=== PATIENT | female | born 1945 | race Caucasian/White ===

== ENCOUNTER 2019-08-29 14:24 | Outpatient (CLI) | payer MEDICARE, SELFPAY ==
--- NOTE | ~2019-08-29 | US_ITS ---
EXAMINATION: US art doppler w shirley COWAN EXAM DATE: 08/29/2019 15:10 INDICATION: Hypertension. Atrial fibrillation. Other specified symptoms and signs of circulatory syst em. TECHNIQUE: Segmental pressures and plethysmographic and Doppler waveforms of the brachial and lower e xtremity arteries were obtained. There is no prior study for comparison. FINDINGS: Right and left brachial artery pressures of 128 mm Hg and 124 mm Hg, respectively, are concordant (no rmal difference <= 30 mmHg). The right and left thigh-brachial pressure indices are 1.35, 1.36, resp ectively (normal > 1.2). RIGHT LEG: The ankle-brachial index (AJ) is 1.02 (normal >= 0.9-1). The great toe-brachial index (TBI) is 0.63 (normal >= 0.65). The lower extremity ratios, segmental pressure gradients as follows; Proximal superficial femoral artery:- 1.35 (173 mmHg). Distal superficial femoral artery: ----- 1.33 (170 mmHg). Popliteal: 1.27 (163 mmHg). Dorsalis pedis: 1.02 (131 mmHg). Posterior tibial: 1.02 (131 mmHg). (Normal gradients <= 20-30 mmHg between adjacent levels on the same leg or the same levels on the two legs). Arterial waveforms are biphasic. LEFT LEG: The ankle-brachial index (AJ) is 1.07 (normal >= 0.9-1). The great toe-brachial index (TBI) is 0.78 (normal >= 0.65). The lower extremity ratios, segmental pressure gradients as follows; Proximal superficial femoral artery:- 1.36 (174 mmHg). Distal superficial femoral artery: ----- 1.24 (159 mmHg). Popliteal: 1.27 (163 mmHg). Dorsalis pedis: 1.05 (135 mmHg). Posterior tibial: 1.07 (137 mmHg). (Normal gradients <= 20-30 mmHg between adjacent levels on the same leg or the same levels on the two legs). Arterial waveforms are biphasic. IMPRESSION: 1. Right ankle-brachial index 1.02, normal. 2. Left ankle-brachial index 1.07, normal. 3. Segmental pressures as above. Reviewed, dictated and finalized at location A.
== END 2019-08-29 14:25 | disposition home or self-care (01) ==
LOC: ANHIMG 14:25
PROVIDERS: PCP Family Medicine; Visit Provider Family Medicine
DX: R09.89 Other specified symptoms and signs involving the circulatory and respiratory systems (principal); R23.0 Cyanosis
CPT/HCPCS: 93923

== ENCOUNTER 2020-02-18 12:34 | Outpatient (CLI) | payer MEDICARE, SELFPAY ==
--- NOTE | ~2020-02-18 | XR_ITS ---
MODIFIED ESOPHAGRAM HISTORY: Dysphagia. TECHNIQUE: Modified barium esophagram was performed by speech pathologist under radiologist fluorosco pic guidance. This was recorded on tape. The exam was reviewed on 02/18/2020 14:18 ICT [employer]. The DAP fo r this procedure was 3.6 Gycm2. Fluoroscopy time is 2.4 minutes. Single fluoroscopic image FINDINGS: Lateral projection of the cervical spine demonstrates straightening of cervical lordosis with multilevel ventral osteophytes.. There is normal swallowing function without evidence for penetr ation or aspiration. There is mildly delayed passage of barium tablet in the esophagus. Consider vic elation with esophagram.. IMPRESSION: 1: Normal swallowing function without aspiration or penetration. Passage of barium tablet mildly jean yed in the esophagus. 2: Please refer to speech pathologist report for additional detail. Reviewed, dictated and finalized at location A. [employer] IMPRESSION: 1: Normal swallowing function without aspiration or penetration. Passage of bar ium tablet mildly delayed in the esophagus. 2: Please refer to speech pathologist report for additional detail.
--- NOTE | 2020-02-18 15:26 | STOPEVAL ---
MODIFIED BARIUM SWALLOW EVALUATION: Thank you for referring this pt to [facility]. Attending Provider: Celestine Santiago MD *ST Outpatient Evaluation MBS: Start: 02/18/20 15:15 Freq: Status: Active Protocol: Document 02/18/20 13:00 BECHERERT (Rec: 02/18/20 15:26 BECHERERT [email or web address]) Therapy Assessment Status Assessment Status Assessment Status Evaluation Outpatient Past Medical History Respiratory History Hx Pneumonia Yes: 4 1/2 years ago hospitalized 16 days Gastrointestinal History Hx Gastroesophageal Reflux Disease Yes: takes pantoprazole 40mg Other History Hx Cancer Yes: skin basal Pain Assessment Timing of Pain Assessment Timing of Pain Assessment Assessment Self Report Self Report Pain Level 0 Pain Score Pain Score 0: Self Report Modified Barium Swallow Evaluation Recent Swallowing History Reports Dysphagia Yes: choking; pills get stuck Onset of Dysphagia couple years ago Other Factors Impacting Dysphagia None Reported Difficult Consistencies Thin Liquids,Pills,Solids Intake Method Prior to Swallow Oral Evaluation Diet Prior to Swallow Evaluation Regular, Level 7 Liquid Consistency Prior to Swallow Thin (0) Evaluation Dentition Comments good natural dentition Consistency Barium Pill Method of Presentation hand Oral Preparatory Symptoms None Oral Phase Symptoms None Pharyngeal Phase Comments barium pill was very briefly caught in the valleculae; however, with additional liquid wash, it was easily cleared. Cervical/Esophageal Phase Comments upon further scan of lower esophagus, the pill was again seen caught/lodged. Upon post test scanning, it was noted to have passed in less than 3-5 minutes. Per radiologist: esophagram may be warranted. Solid Consistency Method of Presentation Spoon Oral Preparatory Symptoms None Oral Phase Symptoms None Pharyngeal Phase Symptoms None Severity of Vallecular Residue None - 0% No Residue Severity of Pyriform Sinus Residue None - 0% No Residue 8 Point Laryngeal Penetration-Aspiration Material Does Not Enter Airway Scale Cervical/Esophageal Symptoms None Mixed Consistency Method of Presentation Spoon Oral Preparatory Symptoms None Oral Phase Symptoms None Pharyngeal Phase Symptoms None Severity of Vallecular Residue None - 0
== END 2020-02-18 12:35 | disposition home or self-care (01) ==
PROVIDERS: PCP Family Medicine; Visit Provider Otolaryngology
DX: T17.908A Unspecified foreign body in respiratory tract, part unspecified causing other injury, initial encounter (principal); R13.10 Dysphagia, unspecified
CPT/HCPCS: 92611

== ENCOUNTER 2020-02-24 08:17 | Outpatient (CLI) | payer MEDICARE, SELFPAY ==
--- NOTE | ~2020-02-24 | MM_ITS ---
EXAMINATION: MM screening roberto carlos BI w ami HISTORY: Screening mammogram TECHNIQUE: Craniocaudal and mediolateral oblique 3-D tomosynthesis images were obtained and synthetic 2-D images were generated. CAD analysis was submitted and interpreted. COMPARISON: 02/21/2019, 09/11/2017, 09/07/2016 bilateral digital screening mammogram examinations BREAST PARENCHYMAL COMPOSITION: There are scattered areas of fibroglandular density. FINDINGS: There are scattered bilateral benign calcifications. There is no evidence of suspicious mas s, calcification, or architectural distortion to suggest malignancy in either breast. There has been no suspicious interval change. IMPRESSION: 1. No mammographic evidence of malignancy. 2. Recommend routine screening mammography in one year. BI-RADS Category 2: Benign finding(s). Reviewed, dictated and finalized at location A. [facility]
== END 2020-02-24 08:18 | disposition home or self-care (01) ==
LOC: ANHIMG 08:20
PROVIDERS: PCP Family Medicine; Visit Provider Family Medicine
DX: Z12.31 Encounter for screening mammogram for malignant neoplasm of breast (principal)
CPT/HCPCS: 77063; 77067

== ENCOUNTER → 2020-08-21 00:18 | Outpatient (CLI) | payer MEDICARE, SELFPAY ==
[2020-08-21 19:27] LABS: SARS-CoV-2 RNA PCR Negative
== END ==
PROVIDERS: PCP Family Medicine; Visit Provider Internal Medicine Gastroenterology
DX: Z01.812 Encounter for preprocedural laboratory examination (principal); Z20.822 Contact with and (suspected) exposure to COVID-19
CPT/HCPCS: C9803; U0003; U0005

== ENCOUNTER 2020-08-25 00:57 | Day surgery (SDC) | payer MEDICARE, SELFPAY ==
[2020-08-18 14:41] VITALS: BMI 28.8
[2020-08-25 08:40] VITALS: BP 132/85; PULSE 62; RESP 18; TEMP 36; O2SAT 95; BMI 29.7
[2020-08-25] MEDS: LACTATED RINGERS 1,000 ML 150 ML IV CONT (09:16)
--- NOTE | 2020-08-25 09:32 | WPDANESEPPF ---
Anes - Initial Pre Proc Eval Procedure: Operation Date: 08/25/20 10:15 Proposed Procedures p Esophagogastroduodenoscopy - Miguel Gonzalez MD Date/Time: 08/25/20 09:32 Surgeon: Miguel Gonzalez MD Pre Op Diagnosis: dysphagia Patient Data Age: 75 Gender: F Height: 1.52 m Weight: 69 kg Last Vital Signs Temp 96.8 F L 08/25/20 08:40 Pulse 62 08/25/20 08:40 Resp 18 08/25/20 08:40 BP 132/85 08/25/20 08:40 Pulse Ox 95 08/25/20 08:40 Allergies Allergy/AdvReac Type Severity Reaction Status Date / Time No Known Allergies Allergy Verified 08/25/20 08:38 Home Medications Medication Instructions Recorded Confirmed Type albuterol sulfate 90 mcg/actuation 2 puff INHALATION Q4-6H PRN gm 03/21/19 08/25/20 History aerosol inhaler pantoprazole 40 mg tablet,delayed 40 mg PO QAM #90 tablet 06/14/20 08/25/20 Rx release lisinopril 20 2 tablet PO DAILY tablet 08/13/20 08/25/20 History mg-hydrochlorothiazide 12.5 mg tablet Eliquis 5 mg PO BID 08/18/20 08/25/20 History amitriptyline 50 mg PO HS 08/18/20 08/25/20 History atorvastatin 10 mg PO HS 08/18/20 08/25/20 History levothyroxine 88 mcg PO DAILY 08/18/20 08/25/20 History metoprolol succinate 100 mg PO HS 08/18/20 08/25/20 History Patient hx anesthesia problems: none Family hx anesthesia problems: none [facility] Past Medical History Medical History Asthma Atrial fibrillation 12/2014 Chronic atrial fibrillation CKD (chronic kidney disease) stage 3, GFR 30-59 ml/min Dyslipidemia Essential (primary) hypertension GERD without esophagitis Hyperparathyroidism Hypothyroidism (acquired) Intermittent asthma without complication Osteopenia Thyroid disease Upper back pain Surgical History Surgical History History of parathyroidectomy (~10/2018) partial 10/2018 History of tubal ligation (~2005) 2005 Hx of tonsillectomy (~1953) 1953 Family History Family History Grandparent Family history of malignant neoplasm of breast Social History Social History Smoking status: Never smoker Second hand tobacco smoke exposure: No Alcohol intake: current Drinks per week: 1 Substance use: never Substance use type: does not use Living arrangements: with family Gender identity (if verbalized by the patient): Female Spiritual care concerns: No Anes - Eval Final PreProcedure Day of Procedure 08/25/20 09:32 Patient weight: overweight Heart: irregular rhythm Lungs: clear to auscultation Airway: Mallampati scale class II Neurological: alert and oriented Last oral intake: >/= 8 hours ASA classification: III Emergent: no Anesthetic plan: proceed Anesthesia type and monitoring: general GIVS and standard monitoring Informed Consent: The patient's anesthetic plan and its attendant risks and benefits were discussed with the patient/family/POA. Questions were solicited and answers provided to the satisfaction of the patient/family/POA.
--- NOTE | 2020-08-25 09:37 | PM.HPGS ---
History of Present Illness History of Present Illness Consent: Risks, benefits, and alternatives have been discussed and questions answered. Patient agrees to proceed with procedure. Chief complaint: dysphagia Narrative: Lena West is a 75 year old female with dysphagia. This is primarily for pills. however sometimes food will hang up on the way down also. A barium swallow was done in the past that was unremarkable PMFSH Past Medical History Medical History Asthma Atrial fibrillation 12/2014 Chronic atrial fibrillation CKD (chronic kidney disease) stage 3, GFR 30-59 ml/min Dyslipidemia Essential (primary) hypertension GERD without esophagitis Hyperparathyroidism Hypothyroidism (acquired) Intermittent asthma without complication Osteopenia Thyroid disease Upper back pain Surgical History Surgical History History of parathyroidectomy (~10/2018) partial 10/2018 History of tubal ligation (~2004) 2004 Hx of tonsillectomy (~1952) 1952 Family History Family History Grandparent Family history of malignant neoplasm of breast Social History Social History Smoking status: Never smoker Second hand tobacco smoke exposure: No Alcohol intake: current Drinks per week: 1 Substance use: never Substance use type: does not use Living arrangements: with family Gender identity (if verbalized by the patient): Female Spiritual care concerns: No Meds Home Medications and Allergies Home Medications Medication Instructions Recorded Confirmed Type albuterol sulfate 90 mcg/actuation 2 puff INHALATION Q4-6H PRN gm 03/21/19 08/25/20 History aerosol inhaler pantoprazole 40 mg tablet,delayed 40 mg PO QAM #90 tablet 06/14/20 08/25/20 Rx release lisinopril 20 2 tablet PO DAILY tablet 08/13/20 08/25/20 History mg-hydrochlorothiazide 12.5 mg tablet Eliquis 5 mg PO BID 08/18/20 08/25/20 History amitriptyline 50 mg PO HS 08/18/20 08/25/20 History atorvastatin 10 mg PO HS 08/18/20 08/25/20 History levothyroxine 88 mcg PO DAILY 08/18/20 08/25/20 History metoprolol succinate 100 mg PO HS 08/18/20 08/25/20 History Allergies Allergy/AdvReac Type Severity Reaction Status Date / Time No Known Allergies Allergy Verified 08/25/20 08:38 Vital Signs Vital Signs - 24 hr 08/25/20 08:40 Temperature 36.0 C L Pulse Rate 62 Respiratory Rate 18 Blood Pressure 132/85 Pulse Oximetry 95 Exam Const: General: alert Orientation/consciousness: patient oriented x3 Resp: Auscultation: clear to auscultation bilaterally Cardio: Rhythm: regular rhythm GI: GI Palp: Yes Soft to palpation and No Tenderness to palpation present (GI) Neuro: General: patient oriented x3 Assessment and Plan Assessment and plan (1) Dysphagia: Code(s): R13.10 - Dysphagia, unspecified Status: Acute Assessment and Plan: EGD with possible biopsy or dilatation or cautery.
[2020-08-25] MEDS: BENZOCAINE (*SP) 60 ML SPRAY CAN (HURRICAINE) 1 SPRAY MUCOUS MEM (09:55)
[2020-08-25 10:14] VITALS: BP 129/79; PULSE 74; RESP 18; O2SAT 95
[2020-08-25 10:24] VITALS: BP 123/76; PULSE 80; RESP 20; O2SAT 96
[2020-08-25 10:34] VITALS: BP 131/77; PULSE 72; RESP 22; O2SAT 100
== END 2020-08-25 10:55 | disposition home or self-care (01) ==
PROVIDERS: PCP Family Medicine; Visit Provider Internal Medicine Gastroenterology
PROC: 0DJ08ZZ Inspection of Upper Intestinal Tract, Via Natural or Artificial Opening Endoscopic (ICD-10-PCS; CPT 43235; principal; 2020-08-25 10:15)
DX: K22.2 Esophageal obstruction (principal); K22.8 Other specified diseases of esophagus; I48.91 Unspecified atrial fibrillation; I12.9 Hypertensive chronic kidney disease with stage 1 through stage 4 chronic kidney disease, or unspecified chronic kidney disease; N18.30 Chronic kidney disease, stage 3 unspecified; E03.9 Hypothyroidism, unspecified; E21.3 Hyperparathyroidism, unspecified; J45.20 Mild intermittent asthma, uncomplicated; K21.9 Gastro-esophageal reflux disease without esophagitis; M85.80 Other specified disorders of bone density and structure, unspecified site; Z79.51 Long term (current) use of inhaled steroids; Z79.01 Long term (current) use of anticoagulants
CPT/HCPCS: 43249; 88305; C1726; J2704; J7120

== ENCOUNTER 2020-08-31 14:10 | Outpatient (CLI) | payer MEDICARE, SELFPAY ==
--- NOTE | ~2020-08-31 | US_ITS ---
EXAMINATION: US arterial ankle brachial ind DATE: 08/31/2020 15:21 INDICATION: Arterial occlusive disease. Other specified symptoms and signs involving the circulatory and respiratory system. TECHNIQUE: Segmental pressures and plethysmographic and Doppler waveforms of the brachial and lower e xtremity arteries were obtained. COMPARISON: Arterial Doppler and segmental pressures 08/29/2019 FINDINGS: Right and left brachial artery pressures of 132 mm Hg and 131 mm Hg, respectively, are concordant (no rmal difference <= 30 mmHg). The right ankle-brachial index (AJ) is 1.04 (normal >= 0.9-1.0). The right great toe-brachial index (TBI) is 0.30 (normal >= 0.65). Arterial Doppler waveforms are biphasic at the ankle. The left AJ is 1.05. The left TBI is 0.48. Arterial Doppler waveforms are biphasic at the ankle. IMPRESSION: 1. Decreased TBIs and normal ABIs, consistent with arterial occlusive disease. Note that ABIs may be overestimated if arteries are calcified. Reviewed, dictated and finalized at location A.
== END 2020-08-31 14:11 | disposition home or self-care (01) ==
PROVIDERS: PCP Family Medicine; Visit Provider Nurse Practitioner Family
DX: R09.89 Other specified symptoms and signs involving the circulatory and respiratory systems (principal)
CPT/HCPCS: 93922

== ENCOUNTER 2020-09-22 08:09 | Outpatient (CLI) | payer MEDICARE, SELFPAY ==
--- NOTE | ~2020-09-22 | XR_ITS ---
EXAMINATION: XR barium swallow DATE: 09/22/2020 09:07 INDICATION: Dysphagia. Abnormal modified barium swallow study. TECHNIQUE: The patient drank thick barium, gas-producing crystals, and thin barium. Fluoroscopic spot radiographs of the hypopharynx and esophagus were obtained. Fluoroscopy exposure time was 2.1 minut es. A total of 1793 images were recorded. Total DAP was 5.314 mGycm^2 COMPARISON: None. FINDINGS: The pharynx is symmetric and without evidence of mass lesion or mucosal irregularity. Sever e cervical spondylosis with prominent anterior endplate osteophytes which impress upon the posterior wall of the hypopharynx. There is transient increased prominence of the cricopharyngeus following the swallow. A few small surgical clips project over the cervical trachea on the lateral projection sugg esting prior thyroid surgery. The esophagus is normal without mass or stricture. Mild esophageal dysm otility with weakening of the primary peristaltic wave resulting in break up of the contrast bolus wi th continued ineffectual clearance during secondary peristalsis in the prone position. There is no hi atal hernia. There was no gastroesophageal reflux with provocative maneuvers. IMPRESSION: 1. Mild esophageal dysmotility which may be related to presbyesophagus. No fixed masses or strictures . Reviewed, dictated and finalized at location A. IMPRESSION: 1. Mild esophageal dysmotility which may be related to presbyesophagus. No fixe d masses or strictures.
== END 2020-09-22 08:10 | disposition home or self-care (01) ==
PROVIDERS: PCP Family Medicine; Visit Provider Nurse Practitioner Family
DX: R13.10 Dysphagia, unspecified (principal)
CPT/HCPCS: 74220

== ENCOUNTER 2021-08-11 07:50 | Outpatient (CLI) | payer MEDICARE, SELFPAY ==
--- NOTE | ~2021-08-11 | MM_ITS ---
EXAMINATION: MM screening [facility] BI w ami HISTORY: Screening mammogram TECHNIQUE: Craniocaudal and mediolateral oblique 3-D tomosynthesis images were obtained and synthetic 2-D images were generated. CAD analysis was submitted and interpreted. COMPARISON: 02/24/2020, 02/21/2019, 09/11/2017 BREAST PARENCHYMAL COMPOSITION: There are scattered areas of fibroglandular density. FINDINGS: Scattered benign-appearing calcifications are present. There is no suspicious mass, calcifi cation, or architectural distortion to suggest malignancy in either breast. There has been no suspici ous interval change. IMPRESSION: 1. No mammographic evidence of malignancy. 2. Recommend routine screening mammography in one year. BI-RADS Category 2: Benign finding(s). Reviewed, dictated and finalized at location A.
== END 2021-08-11 07:51 | disposition home or self-care (01) ==
PROVIDERS: PCP Family Medicine; Visit Provider Family Medicine
DX: Z12.31 Encounter for screening mammogram for malignant neoplasm of breast (principal)
CPT/HCPCS: 77063; 77067

== ENCOUNTER 2021-08-12 13:21 | Outpatient (RCR) | payer MEDICARE, SELFPAY ==
--- NOTE | 2021-08-12 14:49 | STOPEVAL ---
Thank you for referring Lena West to [facility].? Patient declined additional Speech Therapy at this time. Please review, acknowledge discharge from Speech Therapy, and then sign, date and return to [facility]. I acknowledge and understand patient requested no additional therapy at this time. Referring Physician Date Attending Provider: Danie Moreno MD Therapy Assessment Status Assessment Status Assessment Status Evaluation Outpatient Past Medical History Neurological History Hx Neurological Disorders No Significant History Cardiovascular History Hx Atrial Fibrillation Yes: CARDIOVERSION FAILED Hx Hypercholesterolemia Yes Hx Hypertension Yes Respiratory History Hx Pneumonia Yes: 2014 hospitalized 16 days Gastrointestinal History Hx Gastroesophageal Reflux Disease Yes: takes pantoprazole 40mg Genitourinary History Hx Genitourinary Disorders No Significant History Musculoskeletal History Hx Fractures Yes Hematological History Hx Hematological Disorders No Significant History Endocrine History Hx Hypothyroidism Yes Hx Thyroidectomy Yes: PARATHYROID REMOVED HEENT History Hx Cataracts Yes: BILATERAL SURGERY Integumentary History Hx Excision Skin Lesion Yes: BASAL CELL Reproductive History Hx Post Menopausal Yes Hx Tubal Ligation Yes Psychosocial History Hx Psychiatric Disorders No Significant History Pain History History of Any Previous or Ongoing No Significant History Instance of Pain Anesthesia History Hx Anesthesia Reactions No Significant History Other History Hx Cancer Yes: skin basal Evaluation Information Problem Diagnosis Dysphagia Onset [id number], increasing in frequency Cause Unknown Additional Evaluation Detail Patient reports an episode of pneumonia, starting at [facility], then transferred to [facility]. She reported that while at [facility], she became choked on a cookie and had to cough to clear. Patient spoke to her primary care physician and patient expressed concern about her swallowing and her physician recommended Speech Therapy at this time. Subjective Information Patient reports that she has Query Text:As Reported By Patient/ had difficulty swallowing for Family several ye
== END 2021-10-26 12:51 | disposition home or self-care (01) ==
LOC: ANHST 13:21
PROVIDERS: PCP Family Medicine; Visit Provider Family Medicine
DX: T17.908D Unspecified foreign body in respiratory tract, part unspecified causing other injury, subsequent encounter (principal); R13.10 Dysphagia, unspecified; K22.4 Dyskinesia of esophagus
CPT/HCPCS: 92610

== ENCOUNTER 2021-10-11 16:18 | Outpatient (CLI) | payer MEDICARE, SELFPAY ==
--- NOTE | ~2021-10-11 | XR_ITS ---
XR chest 2V DATE: 10/11/2021 16:41 INDICATION: Dyspnea on exertion, worse over the past 2 weeks. History of hypertension, asthma, atrial fibrillation. TECHNIQUE: PA and lateral views COMPARISON: 12/04/2014 2 view chest FINDINGS: Cardiomegaly. Aortic calcification and unfolding. No hilar or mediastinal enlargement. Chronic discoid scarring in the right lung, present on 12/04/2014. No pulmonary infiltrate or consolid ation, pleural effusion or pulmonary vascular congestion or pneumothorax. Dextroscoliosis of the thoracic spine and prominent rotatory levoscoliosis of the lumbar spine. Osteo penia. Abdominal aortic calcification. IMPRESSION: Cardiomegaly, aortic atherosclerosis and tortuosity Chronic discoid scarring, right lower lung No active pulmonary disease Osteopenia Prominent thoracic and lumbar scoliosis Reviewed, dictated and finalized at location B.
== END 2021-10-11 16:19 | disposition home or self-care (01) ==
PROVIDERS: PCP Family Medicine; Visit Provider Nurse Practitioner Adult Health
DX: R06.00 Dyspnea, unspecified (principal); I51.7 Cardiomegaly; M85.88 Other specified disorders of bone density and structure, other site; M41.9 Scoliosis, unspecified
CPT/HCPCS: 71046

== ENCOUNTER 2021-12-15 07:40 | Outpatient (CLI) | payer MEDICARE, SELFPAY ==
--- NOTE | 2021-12-26 19:06 | WPDSLEEPSTUD ---
Sleep Study Date of Study: 12/15/21 Ordering Provider: Kaylan Durbin MD Interpreting Physician: Jacqueline Dunham DO Sleep Study Type: Split Polysomnogram Height: 1.52 m Weight: 69.853 kg Body Mass Index: 30.0 Neck Circumference (inches): 12 [place]: 4 Reason for Sleep Study Nocturia, persistent atrial fibrillation Sleep History The patient is a 76-year-old female with persistent paroxysmal atrial fibrillation status post failed cardioversion, atrial flutter, diastolic congestive heart failure, anxiety, asthma, hypothyroidism, hypertension, osteopenia, primary hyperparathyroidism, seizures, thyroid nodule and overactive bladder that had a sleep study ordered by her upholsterer inside for evaluation of sleep apnea. The patient occasionally awakens from sleep short of breath. She denies awakening at night with heartburn, belching or cough. She denies snoring loud enough that others complain. She rarely has trouble sleeping when she has a cold. She frequently has breathing problems at night observed by herself or others. She denies sweating excessively at night. She occasionally has atrial fibrillation. she denies falling asleep during the day and while driving. She occasionally experiences loss of muscle tone when extremely emotional. She denies sleep paralysis and hypnagogic/ hypnopompic hallucinations. She denies feeling afraid of going to sleep. She rarely has nightmares. She rarely remembers her dreams. She frequently has thoughts racing through her mind. She rarely feels sad or depressed. She occasionally has anxiety. She rarely has muscular tension. She denies noticing parts of her body jerk. She denies kicking during the night. She rarely has crawling and aching feelings in her legs as well as leg pain during the night. She denies grinding her teeth during sleep and denies awakening with morning jaw pain. She is frequently bothered by pain during the day. She occasionally wakes up feeling stiff in the morning. She occasionally wakes up with sore achy muscles. She rarely wakes up with pain in the neck, spine and other joints. She goes to bed at 10:00 p.m. on weekdays and at 10:30 p.m. on weekends. He can take her anywhere from 10 minutes to 3 hours to fall asleep. She wakes up 3 times throughout the night to use the restroom, get food and then watching movie. She will stay awake either for 5 minutes or for the rest of the night. She wakes up between 5-7 a.m. on both weekdays and weekends. She typically gets 5-6 hours of sleep per night. She will stay in bed for 20 minutes after waking up in the morning. She does not consume any caffeinated beverages within 2 hours of bedtime. She does not engage in physical exercise before bedtime. She will watch television before falling asleep. She does not take naps in the afternoon or the evening. He drinks 6 oz of coffee per day. She denies tobacco, alcohol and recreational drug use. [facility] Past Medical History Medical History Arterial occlusive disease Asthma Atrial fibrillation 12/2014 CHF (congestive heart failure) Chronic atrial fibrillation CKD (chronic kidney disease) stage 3, GFR 30-59 ml/min Dyslipidemia Essential (primary) hypertension GERD without esophagitis Hyperparathyroidism Hypothyroidism (acquired) Intermittent asthma without complication Osteopenia Scoliosis Thyroid disease Upper back pain Surgical History Surgical History History of parathyroidectomy (~10/2018) partial 10/2018 History of tubal ligation (~2004) 2004 Hx of tonsillectomy (~1952) 1952 Family History Family History Grandparent Family history of malignant neoplasm of breast Social History Social History Smoking status: Never smoker Second hand
== END 2021-12-16 06:19 | disposition home or self-care (01) ==
PROVIDERS: PCP Family Medicine; Visit Provider Internal Medicine Cardiovascular Disease
DX: G47.30 Sleep apnea, unspecified (principal); G47.33 Obstructive sleep apnea (adult) (pediatric)
CPT/HCPCS: 95811

== ENCOUNTER 2021-12-18 09:44 | Emergency (ER) | payer MEDICARE, SELFPAY ==
--- NOTE | ~2021-12-18 | XR_ITS ---
EXAMINATION: XR chest 2V DATE: 12/18/2021 10:18 INDICATION: Shortness of breath. Chest pain. TECHNIQUE: PA and lateral views of the chest were obtained. COMPARISON: Chest radiograph dated 10/11/2021 FINDINGS: Calcified right lower lobe nodule consistent with old granulomatous disease. Unchanged opacities in t he right lower lung zone which appears demonstrate a combination of atelectasis/scarring and calcifie d pleural plaques likely related to an earlier exudative effusion as seen on CT dated 07/23/2013. No n ew airspace opacities, pulmonary edema, pleural effusion or pneumothorax. The cardiomediastinal silho uette is normal. Tortuous and thoracic aorta. Moderate thoracolumbar dextroscoliosis with severe spon dylosis. IMPRESSION: 1. Chronic atelectasis/scarring and calcified pleural plaques at the right lower lung zone likely rel ated to an earlier necrotizing pneumonia with exudative effusion seen on CT dated 07/23/2013. No acute cardiopulmonary disease. Reviewed, dictated and finalized at location A. IMPRESSION: 1. Chronic atelectasis/scarring and calcified pleural plaques at the right lowe r lung zone likely related to an earlier necrotizing pneumonia with exudative e ffusion seen on CT dated 07/23/2013. No acute cardiopulmonary disease.
--- NOTE | 2021-12-18 09:44 | ECG_ITS ---
Measurements Intervals [place]ble Rate: 55 P: AL: 0 QRS: 38 QRSD: 156 T: -27 QT: 420 QTc: 402 Interpretive Statements ATRIAL FIBRILLATION WITH SLOW VENTRICULAR RESPONSE INDETERMINATE AXIS RIGHT BUNDLE BRANCH BLOCK ABNORMAL ECG NO PREVIOUS ECG AVAILABLE FOR COMPARISON Electronically Signed On 12-18-2021 15:44:42 CDT by Garland Viera M.D.
[2021-12-18 09:58] VITALS: O2SAT 97
[2021-12-18 10:03] LABS: Basophils Absolute Auto 0.1 K/mm3 (0.0-0.1); Basophils Percent Auto 0.9 % (0.2-1.2); Eosinophils Absolute Auto 0.4 K/mm3 (0-0.3); Hematocrit 42.2 % (37.0-47.0); Hemoglobin 14.2 g/dL (12.0-15.0); Immature Granulocyte Absolute 0.02 K/mm3 (0.00-0.031); Immature Granulocyte Percent A 0.4 % (0-0.5); Lymphocytes Absolute Auto 1.67 K/mm3 (0.9-3.2); Lymphocytes Percent Auto 29.3 % (18.3-44.2); Mean Corpuscular HGB Conc 33.6 g/dl (32-36); Mean Corpuscular Hemoglobin 29.6 pg (26-34); Mean Corpuscular Volume 87.9 fl (80-100); Mean Platelet Volume 10.4 fl (7.4-10.4); Monocytes Absolute Auto 0.5 K/mm3 (0.1-0.6); Monocytes Percent Auto 8.9 % (2.6-8.5); Neutrophils Absolute Auto 3.1 K/mm3 (1.3-6.7); Neutrophils Percent Auto 53.5 % (45.5-73.1); Platelet Count Result 295 k/mm3 (150-375); Red Cell Distribution Width 14.4 % (11.5-14.5); White Blood Count 5.7 K/mm3 (4.5-10.0)
--- NOTE | 2021-12-18 10:10 | ED.GENADULT ---
HPI - General Adult General Chief complaint: Chest Pain Stated complaint: chest pain, CHF Time Seen by Provider: 12/18/21 09:47 History of Present Illness HPI narrative: 76-year-old female history of atrial fibrillation, chronic kidney disease, congestive heart failure presented to the emergency department for evaluation of left-sided chest pain. Patient states she was at rest when she started coughing and had sharp left-sided chest pain that lasted approximately 5 seconds. Patient states that she had had some residual chest tightness that lasted about 5 minutes. Upon arrival to emergency room patient denies any chest pain, chest pressure, chest tightness. Patient denies any radiation of the pain. Patient denies any worsening of the pain with deep inspiration. Patient states her last stress test was in the spring and was a chemical stress test. Patient was recently diagnosed with congestive heart failure. Related Data Home Medications Medication Instructions Recorded Confirmed estradiol 0.01% (0.1 mg/gram) 1 g vaginal WEEKLY 07/12/21 12/09/21 vaginal cream mirabegron 25 mg tablet,extended 25 mg PO DAILY 11/03/21 12/09/21 release 24 hr (Myrbetriq) dapagliflozin 10 mg tablet 10 mg PO DAILY 12/09/21 12/09/21 (Farxiga) furosemide 20 mg tablet 20 mg PO QAM 12/09/21 12/09/21 sacubitril 24 mg-valsartan 26 mg 1 tablet PO BID 12/09/21 12/09/21 tablet (Entresto) Allergies Allergy/AdvReac Type Severity Reaction Status Date / Time No Known Allergies Allergy Verified 12/09/21 10:04 Review of Systems Review of Systems: CONSTITUTIONAL: Denies fever, chills, or sweats. EYES: Denies visual changes, redness, or discharge. ENT: Denies rhinorrhea, congestion, sore throat, or otalgia. CARDIOVASCULAR: See HPI RESPIRATORY: Denies cough or dyspnea. GASTROINTESTINAL: Denies abdominal pain, nausea, vomiting, or diarrhea. GENITOURINARY: Denies dysuria or hematuria. SKIN: Denies rash or itching. MUSCULOSKELETAL: Denies back pain, joint pain, or myalgia. NEUROLOGIC: Denies headache, numbness, or weakness. FORMERLY [facility] Past Medical History Medical History (Updated 12/18/21 @ 14:26 by Abdi aGrcia MD) Arterial occlusive disease Asthma Atrial fibrillation 12/2014 CHF (congestive heart failure) Chronic atrial fibrillation CKD (chronic kidney disease) stage 3, GFR 30-59 ml/min Dyslipidemia Essential (primary) hypertension GERD without esophagitis Hyperparathyroidism Hypothyroidism (acquired) Intermittent asthma without complication Osteopenia Scoliosis Thyroid disease Upper back pain Surgical History Surgical History History of parathyroidectomy (~10/2018) partial 10/2018 History of tubal ligation (~2004) 2004 Hx of tonsillectomy (~1952) 1953 Family History Family History Grandparent Family history of malignant neoplasm of breast Social History Social History Smoking status: Never smoker Second hand tobacco smoke exposure: No Alcohol intake: current Drinks per week: 1 Alcohol use details: consumes 2 hard liquor drinks a month Substance use: never Substance use type: does not use Gender identity (if verbalized by the patient): Female Spiritual care concerns: No Exam Narrative: APPEARANCE: Well appearing, no pain, no distress, well-nourished. HEAD: normocephalic, atraumatic. EYES: PERRLA/EOMI, conjunctivae clear. NOSE: Normal no drainage NECK: Supple. No adenopathy, no masses. RESPIRATORY: Airway patent, respirations nonlabored. Clear to auscultation bilaterally, no rales, rhonchi, wheezing. CARDIOVASCULAR: Reproducible left-sided chest wall tenderness to palpation ABDOMINAL: Soft, nontender, nondistended, normal bowel sounds MUSCULOSKELETAL: Moves all extremities. Strength/ROM intact, No edema, No calf tenderness. NEURO: Alert. Cranial n
[2021-12-18 10:13] LABS: INR 1.6; Prothrombin Time 18.3 Seconds (11.1-14.7)
[2021-12-18 10:15] LABS: Alanine Aminotransferase 27 U/L (6-35); Albumin Level 4.2 g/dL (3.5-5.1); Alkaline Phosphatase 99 U/L (38-126); Anion Gap 11 mmol/L (8-16); Aspartate Amino Transferase 30 U/L (14-36); Bilirubin,Total 0.9 mg/dL (0.2-1.3); Blood Urea Nitrogen 33 mg/dL (7-17); Calcium 9.8 mg/dL (8.4-10.2); Carbon Dioxide 25 mmol/L (22-30); Chloride 104 mmol/L (98-107); Estimated CRCL calculation 28 ml/min; Estimated Glomerular Filt Rate 40; Glucose 104 mg/dL (65-110); Lipase 90 U/L (23-300); Partial Thromboplastin Time 42.3 SECONDS (22.3-36.8); Potassium 3.9 mmol/L (3.4-5.0); Sodium 140 mmol/L (137-145)
[2021-12-18 10:27] LABS: Troponin I < 0.012 ng/mL (0.000-0.034)
[2021-12-18 10:42] VITALS: BP 125/75; PULSE 72; RESP 13; O2SAT 100
[2021-12-18 10:49] LABS: D Dimer 0.34 ug/mL (<0.48)
[2021-12-18 11:07] LABS: Influenza A QL RT-PCR Negative (Negative); Influenza B QL RT-PCR Negative (Negative); SARS-CoV-2 RNA PCR Negative
[2021-12-18 13:43] LABS: Troponin I < 0.012 ng/mL (0.000-0.034)
[2021-12-18 14:45] VITALS: BP 126/70; PULSE 83; RESP 16; O2SAT 98
== END 2021-12-18 14:45 | disposition home or self-care (01) ==
PROVIDERS: Emergency Provider Emergency Medicine; PCP Family Medicine
DX: R07.89 Other chest pain (principal); I13.0 Hypertensive heart and chronic kidney disease with heart failure and stage 1 through stage 4 chronic kidney disease, or unspecified chronic kidney disease; I50.9 Heart failure, unspecified; N18.30 Chronic kidney disease, stage 3 unspecified; I48.20 Chronic atrial fibrillation, unspecified; E78.5 Hyperlipidemia, unspecified; E03.9 Hypothyroidism, unspecified; E21.3 Hyperparathyroidism, unspecified; K21.9 Gastro-esophageal reflux disease without esophagitis; J45.20 Mild intermittent asthma, uncomplicated; I70.90 Unspecified atherosclerosis; Z79.51 Long term (current) use of inhaled steroids; Z79.01 Long term (current) use of anticoagulants; Z20.822 Contact with and (suspected) exposure to COVID-19
CPT/HCPCS: 36415; 71046; 80053; 83690; 84484; 85025; 85380; 85610; 85730; 87502; 93005; 99284; C9803; U0003; U0005

== ENCOUNTER 2022-11-28 08:43 | Outpatient (CLI) | payer MEDICARE, SELFPAY ==
--- NOTE | ~2022-11-28 | MM_ITS ---
EXAMINATION: MM screening roberto carlos BI w ami HISTORY: Screening mammogram TECHNIQUE: Craniocaudal and mediolateral oblique 3-D tomosynthesis images were obtained and synthetic 2-D images were generated. CAD analysis was submitted and interpreted. COMPARISON: 08/11/2021, 02/24/2020, 02/21/2019 bilateral screening mammogram examinations BREAST PARENCHYMAL COMPOSITION: There are scattered areas of fibroglandular density.......... FINDINGS: Scattered bilateral benign calcifications. There is no evidence of suspicious mass, calcifi cation, or architectural distortion to suggest malignancy in either breast. There has been no suspici ous interval change. IMPRESSION: 1. No mammographic evidence of malignancy. 2. Recommend routine screening mammography in one year. BI-RADS Category 2: Benign finding(s). Reviewed, dictated and finalized at location A.
--- NOTE | ~2022-11-28 | DEXA_ITS ---
Bone Density Report Name: SUMAN NAVAS Age: 77 Sex: Female Ethnicity: White Date of : 1945 Indication: postmenopausal; screening for osteoporosis; height loss; prior fracture; asthma or emphysema; Referring Provider: ALEXIS, ESTEFANY Doyle Study: Bone densitometry was performed. Exam Date: November 28, 2022 Accession number: [id number] Bone Density: Region BMD T-score Z-score Classification Femoral Neck (Left) 0.622 -2.0 0.2 Osteopenia Total Hip (Left) 0.822 -1.0 0.9 Normal Femoral Neck (Right) 0.663 -1.7 0.5 Osteopenia Total Hip (Right) 0.791 -1.2 0.7 Osteopenia Total Hip Mean 0.807 -1.1 0.8 Osteopenia World Health Organization criteria for BMD impression classify patients as: Normal (T-score at or above -1.0), Osteopenia (T-score between -1.0 and -2.5), or Osteoporosis (T-score at or below -2.5). 10-year Fracture Risk(1): Major Osteoporotic Fracture 21% Hip Fracture 5.5% Reported Risk Factors: [place] (), Neck BMD=0.622, BMI=27.5, previous fracture (1) FRAX(R) Version 3.08. Fracture probability calculated for an untreated patient. Fracture probability may be lower if the patient has received treatment. Clinical Information Provided by Patient: Has had a low trauma fracture Has used the following medications: Vitamin D Has the following medical conditions: Asthma or Emphysema Patient maximum height was 64 Menopause Age: 53 No regular weight bearing exercise Onset of menses at age 12 Number of children 2 Impression: The patient has low bone mass, based on the Left Femoral Neck T-score. The patient has an estimated ten-year risk of hip fracture of 5.5% and an estimated ten-year risk of major fracture of 21%, based on the WHO FRAX algorithm. The patient has risk factors, including: previous fracture. Discussion: BONE DENSITY IS LOW AT ONE OR MORE SKELETAL SITES. THE PATIENT'S BMD AND CLINICAL RISK FACTORS CONTRIBUTE TO THIS PATIENT'S HIGH RISK OF FRACTURE. This patient's lowest T-score is low at one or more skeletal sites. It meets the World Health Organization's (WHO) criteria for ?low bone mass? (T-score between -1.0 and -2.5). The patient's 10-year risk of hip fracture and 10 year risk of a major osteoporotic fracture as calculated by FRAX exceeds the threshold where pharmacological therapy is recommended by the National Osteoporosis Foundation (NOF). However, all treatment decisions require clinical judgment and consideration of individual patient factors, including patient preferences, comorbidities, previous drug use, risk factors not captured in the FRAX model (e.g., frailty, falls, vitamin D deficiency, increased bone turnover, interval significant decline in bone density) and possible under or overestimation of fracture risk by FRAX. The patient should follow a healthful
== END 2022-11-28 08:44 | disposition home or self-care (01) ==
PROVIDERS: PCP Family Medicine; Visit Provider Nurse Practitioner Obstetrics & Gynecology
DX: Z12.31 Encounter for screening mammogram for malignant neoplasm of breast (principal); M85.851 Other specified disorders of bone density and structure, right thigh; M85.852 Other specified disorders of bone density and structure, left thigh
CPT/HCPCS: 77063; 77067; 77080

== ENCOUNTER 2023-02-28 15:52 | Emergency (ER) | payer MEDICARE, SELFPAY ==
[2023-02-28 16:02] VITALS: BP 119/86; PULSE 86; RESP 16; TEMP 36.6; O2SAT 96
--- NOTE | 2023-02-28 16:53 | ED.FEMALEGU ---
HPI - Female Genitourinary General Chief complaint: Urogenital-Female Stated complaint: Urinary Problems Time Seen by Provider: 02/28/23 16:54 Source: patient and RN notes reviewed Mode of arrival: ambulatory Limitations: no limitations History of Present Illness HPI Narrative: 77-year-old female presented for complaint of burning with urination, frequency, and urgency over the past few days. She states symptoms are similar to previous UTIs. Her last UTI was 2 months ago. Denies hematuria, nausea, vomiting, abdominal pain, flank pain, constipation, diarrhea, fevers or chills. Related Data Home Medications Medication Instructions Recorded Confirmed furosemide 20 mg tablet 20 mg PO QAM 12/09/21 02/28/23 sacubitril 24 mg-valsartan 26 mg 1 tablet PO BID 12/09/21 02/28/23 tablet (Entresto) Allergies Allergy/AdvReac Type Severity Reaction Status Date / Time No Known Allergies Allergy Verified 08/01/22 09:12 Review of Systems Review of Systems: CONSTITUTIONAL: Denies body aches, fever, chills, or sweats. CARDIOVASCULAR: Denies chest pain, palpitations, or edema. RESPIRATORY: Denies cough or dyspnea. GASTROINTESTINAL: Denies abdominal pain, nausea, vomiting, or diarrhea. GENITOURINARY: Reports dysuria, frequency, urgency, denies hematuria, flank pain SKIN: Denies rash, itching, or wounds. MUSCULOSKELETAL: Denies back pain or myalgia. [facility], [facility] Past Medical History Medical History Anxiety Arterial occlusive disease Asthma Atrial fibrillation 12/2014 CHF (congestive heart failure) Chronic atrial fibrillation Chronic mid back pain CKD (chronic kidney disease) stage 3, GFR 30-59 ml/min Diastolic dysfunction Dyslipidemia Essential (primary) hypertension GERD without esophagitis Hyperparathyroidism Hypothyroidism (acquired) Intermittent asthma without complication Osteopenia Raynaud's disease without gangrene Scoliosis Thyroid disease Upper back pain Surgical History Surgical History History of cardioversion (~05/2018) History of parathyroidectomy (~10/2018) partial 10/2018 History of tubal ligation (~2004) 2005 Hx of tonsillectomy (~1952) 1952 Family History Family History Grandparent Family history of malignant neoplasm of breast Social History Social History Smoking status: Never smoker Second hand tobacco smoke exposure: No Alcohol intake: current Drinks per week: 1 Alcohol use details: consumes 2 hard liquor drinks a month Substance use: never Substance use type: does not use Lack of Transportation: No Lack of Food: Never True Current Housing: I Have Housing Concerned About Future Housing: No Difficulty Paying Gas/Electric Bills: No Difficulty Paying for Meds: No Currently Unemployed: No Education: Master's Degree or Higher Difficulty w/ Childcare or Family Care: No Living arrangements: with family Additional living arrangements comments: Occupation/Education: retired Gender identity (if verbalized by the patient): Female Sexual Orientation (if Verbalized by the Patient): Straight or Heterosexual Spiritual care concerns: No Agree to blood products: Yes Comments At time of signature, I have reviewed and agree with nursing past medical, surgical, social and family history unless otherwise noted. Please see nursing chart for further information. There is no relevant family history pertinent to the presenting complaint Exam Narrative: GENERAL: Well-appearing and in no acute distress. ENT: Mucous membranes pink and moist. NECK: Normal AROM. Supple. CHEST: No respiratory distress. Clear to auscultation. HEART: irregular rate and rhythm. ABDOMEN: Soft, nontender, nondistended, normal active bowel sounds. N
== END 2023-02-28 17:04 | disposition home or self-care (01) ==
PROVIDERS: Emergency Provider Nurse Practitioner Family; PCP Family Medicine
DX: N39.0 Urinary tract infection, site not specified (principal); B96.20 Unspecified Escherichia coli [E. coli] as the cause of diseases classified elsewhere; I13.0 Hypertensive heart and chronic kidney disease with heart failure and stage 1 through stage 4 chronic kidney disease, or unspecified chronic kidney disease; N18.30 Chronic kidney disease, stage 3 unspecified; I50.9 Heart failure, unspecified; I48.91 Unspecified atrial fibrillation; I48.20 Chronic atrial fibrillation, unspecified; E78.5 Hyperlipidemia, unspecified; K21.9 Gastro-esophageal reflux disease without esophagitis; E03.9 Hypothyroidism, unspecified; M85.80 Other specified disorders of bone density and structure, unspecified site; I73.00 Raynaud's syndrome without gangrene; Z90.89 Acquired absence of other organs; I70.90 Unspecified atherosclerosis
CPT/HCPCS: 81003; 87077; 87086; 87186; 99213; G0463

== ENCOUNTER 2023-03-07 14:03 | Outpatient (CLI) | payer MEDICARE, SELFPAY ==
[2023-03-07 21:44] LABS: Alanine Aminotransferase 24 U/L (6-35); Albumin Level 4.2 g/dL (3.5-5.1); Alkaline Phosphatase 100 U/L (38-126); Anion Gap 8 mmol/L (8-16); Aspartate Amino Transferase 44 U/L (14-36); Bilirubin,Total 0.8 mg/dL (0.2-1.3); Blood Urea Nitrogen 22 mg/dL (7-17); Calcium 9.7 mg/dL (8.4-10.2); Carbon Dioxide 29 mmol/L (22-30); Chloride 101 mmol/L (98-107); Estimated Glomerular Filt Rate 44; Glucose 77 mg/dL (65-110); Potassium 3.7 mmol/L (3.4-5.0); Sodium 138 mmol/L (137-145)
[2023-03-07 22:42] LABS: Free T4 Free Thyroxine Reflex 1.68 ng/dL (0.78-2.19)
[2023-03-08 04:16] LABS: Total Triiodothyronine (T3) 0.83 NG/ML (0.97-1.69)
== END 2023-03-07 14:04 | disposition home or self-care (01) ==
LOC: ANHGOSHLAB 14:04
PROVIDERS: PCP Family Medicine; Visit Provider Family Medicine
DX: E78.5 Hyperlipidemia, unspecified (principal); I10 Essential (primary) hypertension; E03.9 Hypothyroidism, unspecified
CPT/HCPCS: 36415; 80053; 84439; 84443; 84480

== ENCOUNTER 2023-08-09 13:32 | Outpatient (CLI) | payer MEDICARE, SELFPAY ==
--- NOTE | ~2023-08-09 | XR_ITS ---
XR shoulder RT min 2V Ordering provider: Velma Lara DEVELOPMENT EDITOR-C History: . M25.511 - Pain in right shoulder . Comparison: None. FINDINGS: BONES: No acute fracture or dislocation. JOINT SPACES: The acromioclavicular joint is normal. The glenohumeral joint is normal. SOFT TISSUES: Normal. IMPRESSION: No acute osseous abnormality right shoulder. Consider MRI of the shoulder if there is concern for soft tissue internal derangement. Reviewed, dictated and finalized at location A. IMPRESSION: No acute osseous abnormality right shoulder. Consider MRI of the shoulder if there is concern for soft tissue internal deran won.
== END 2023-08-09 13:33 ==
PROVIDERS: PCP Family Medicine; Visit Provider Nurse Practitioner
DX: M25.511 Pain in right shoulder (principal)
CPT/HCPCS: 73030

== ENCOUNTER 2023-08-29 00:09 | Day surgery (SDC) | payer MEDICARE, SELFPAY ==
[2023-08-20 13:20] VITALS: BMI 26.4
--- NOTE | 2023-08-20 13:50 | PC.NURSE ---
Spoke with PATIENT regarding medication ELIQUIS. Pt. verbalizes understanding that the last dose of ELIQUIS is to be taken on 08/26/2023 and the Endoscopist will instruct them when to restart after the procedure.
[2023-08-29 09:20] VITALS: BP 142/74; PULSE 64; RESP 18; TEMP 36.2; O2SAT 98
[2023-08-29] MEDS: LACTATED RINGERS 1,000 ML 150 ML IV CONT (09:36)
--- NOTE | 2023-08-29 10:20 | WPDANESEPPF ---
Anes - Initial Pre Proc Eval Procedure: Operation Date: 08/29/23 10:30 Proposed Procedures p Colonoscopy - Antonio Romero MD Date/Time: 08/29/23 10:20 Surgeon: Antonio Romero MD Pre Op Diagnosis: Personal history colon polyps Patient Data Age: 78 Gender: F Height: 1.52 m Weight: 61.5 kg Last Vital Signs Temp 36.2 C L 08/29/23 09:20 Pulse 64 08/29/23 09:20 Resp 18 08/29/23 09:20 BP 142/74 H 08/29/23 09:20 Pulse Ox 98 08/29/23 09:20 O2 Del Method Room Air 08/29/23 09:20 Allergies Allergy/AdvReac Type Severity Reaction Status Date / Time No Known Allergies Allergy Verified 08/29/23 09:19 Home Medications Medication Instructions Recorded Confirmed Type furosemide 20 mg tablet 20 mg PO QAM 12/09/21 08/20/23 History sacubitril 24 mg-valsartan 26 mg 1 tablet PO BID 12/09/21 08/20/23 History tablet (Entresto) dapagliflozin propanediol 10 mg 10 mg PO DAILY #90 tabs 12/20/21 08/20/23 Rx tablet (Farxiga) albuterol sulfate 90 mcg/actuation 2 puff inhalation Q4-6H PRN 07/19/22 08/20/23 Rx aerosol inhaler (Proventil HFA) Shortness Of Breath Or Wheezing #3 device levothyroxine 75 mcg tablet 75 mcg PO DAILY 03/07/23 08/20/23 History apixaban 5 mg tablet (Eliquis) 5 mg PO BID #180 tabs 07/03/23 08/29/23 Rx metoprolol succinate 100 mg 100 mg PO HS #90 tabs 07/03/23 08/20/23 Rx tablet,extended release 24 hr duloxetine 30 mg capsule,delayed 30 mg PO DAILY #90 caps 08/09/23 08/20/23 Rx release atorvastatin 10 mg tablet 10 mg PO QHS #90 tabs 08/20/23 Rx biotin 1 gummy PO DAILY 08/20/23 08/20/23 History calcium carbonate-vitamin D3 500 1 cap PO DAILY 08/20/23 08/20/23 History mg (1,250 mg)-50 unit capsule pantoprazole 20 mg tablet,delayed 20 mg PO QAM #90 tabs 08/20/23 Rx release Patient hx anesthesia problems: none Family hx anesthesia problems: none Results Review: All pre-operative results and documents have been reviewed as part of the pre-operative evaluation. [facility] Past Medical History Medical History Anxiety Arterial occlusive disease Asthma Atrial fibrillation 12/2014 CHF (congestive heart failure) Chronic atrial fibrillation Chronic mid back pain CKD (chronic kidney disease) stage 3, GFR 30-59 ml/min Cystocele Diastolic dysfunction Dyslipidemia Essential (primary) hypertension GERD without esophagitis Hyperparathyroidism Hypothyroidism (acquired) Intermittent asthma without complication Osteopenia Raynaud's disease without gangrene Scoliosis Thyroid disease Upper back pain Surgical History Surgical History History of cardioversion (~05/2018) History of parathyroidectomy (~10/2018) partial 10/2018 History of tubal ligation (~2004) 2004 Hx of tonsillectomy (~1952) 1952 Family History Family History Grandparent Family history of malignant neoplasm of breast Social History Social History Social History: Caffeine- coffee Smoking status: Never smoker Second hand tobacco smoke exposure: No Alcohol intake: current Drinks per week: 1 Alcohol use details: consumes 2 hard liquor drinks a month Substance use: never Substance use type: does not use Lack of Transportation: No Lack of Food: Never True Current Housing: I Have Housing Concerned About Future Housing: No Difficulty Paying Gas/Electric Bills: No Difficulty Paying for Meds: No Currently Unemployed: No Education: Master's Degree or Higher Difficulty w/ Childcare or Family Care: No Living arrangements: with family Additional living arrangements comments: Occupation/Education: retired Gender identity (if verbalized by the patient): Female Sexual Orientation (if Verbalized by the P
--- NOTE | 2023-08-29 10:23 | PM.HPGS ---
History of Present Illness History of Present Illness Consent: Risks, benefits, and alternatives have been discussed and questions answered. Patient agrees to proceed with procedure. Chief complaint: Personal history colon polyps Narrative: Lena West is a 78 year old female with colon polyp 5 years ago Review of Systems Review of Systems: All systems reviewed & are unremarkable except as noted in HPI and below PMFSH Past Medical History Medical History (Updated 08/29/23 @ 10:24 by Antonio Romero MD) Anxiety Arterial occlusive disease Asthma Atrial fibrillation 12/2014 CHF (congestive heart failure) Chronic atrial fibrillation Chronic mid back pain CKD (chronic kidney disease) stage 3, GFR 30-59 ml/min Colon polyp Cystocele Diastolic dysfunction Dyslipidemia Essential (primary) hypertension GERD without esophagitis Hyperparathyroidism Hypothyroidism (acquired) Intermittent asthma without complication Osteopenia Raynaud's disease without gangrene Scoliosis Thyroid disease Upper back pain Surgical History Surgical History History of cardioversion (~05/2018) History of parathyroidectomy (~10/2018) partial 10/2018 History of tubal ligation (~2004) 2004 Hx of tonsillectomy (~1952) 1952 Family History Family History Grandparent Family history of malignant neoplasm of breast Social History Social History Social History: Caffeine- coffee Smoking status: Never smoker Second hand tobacco smoke exposure: No Alcohol intake: current Drinks per week: 1 Alcohol use details: consumes 2 hard liquor drinks a month Substance use: never Substance use type: does not use Lack of Transportation: No Lack of Food: Never True Current Housing: I Have Housing Concerned About Future Housing: No Difficulty Paying Gas/Electric Bills: No Difficulty Paying for Meds: No Currently Unemployed: No Education: Master's Degree or Higher Difficulty w/ Childcare or Family Care: No Living arrangements: with family Additional living arrangements comments: Occupation/Education: retired Gender identity (if verbalized by the patient): Female Sexual Orientation (if Verbalized by the Patient): Straight or Heterosexual Spiritual care concerns: No Agree to blood products: Yes Meds Home Medications and Allergies Home Medications Medication Instructions Recorded Confirmed Type furosemide 20 mg tablet 20 mg PO QAM 12/09/21 08/20/23 History sacubitril 24 mg-valsartan 26 mg 1 tablet PO BID 12/09/21 08/20/23 History tablet (Entresto) dapagliflozin propanediol 10 mg 10 mg PO DAILY #90 tabs 12/20/21 08/20/23 Rx tablet (Farxiga) albuterol sulfate 90 mcg/actuation 2 puff inhalation Q4-6H PRN 07/19/22 08/20/23 Rx aerosol inhaler (Proventil HFA) Shortness Of Breath Or Wheezing #3 device levothyroxine 75 mcg tablet 75 mcg PO DAILY 03/07/23 08/20/23 History apixaban 5 mg tablet (Eliquis) 5 mg PO BID #180 tabs 07/03/23 08/29/23 Rx metoprolol succinate 100 mg 100 mg PO HS #90 tabs 07/03/23 08/20/23 Rx tablet,extended release 24 hr duloxetine 30 mg capsule,delayed 30 mg PO DAILY #90 caps 08/09/23 08/20/23 Rx release atorvastatin 10 mg tablet 10 mg PO QHS #90 tabs 08/20/23 Rx biotin 1 gummy PO DAILY 08/20/23 08/20/23 History calcium carbonate-vitamin D3 500 1 cap PO DAILY 08/20/23 08/20/23 History mg (1,250 mg)-50 unit capsule pantoprazole 20 mg tablet,delayed 20 mg PO QAM #90 tabs 08/20/23 Rx release Allergies Allergy/AdvReac Type Severity Reaction Status Date / Time No Known Allergies Allergy Verified 08/29/23 09:19 Vital Signs Vital Signs - 24 hr 08/29/23 09:20 Temperature 97.2 F L Pulse Rate 64 Respiratory Rate 18 Blood Pressure 142/74 H Pulse Oximetry
[2023-08-29 10:54] VITALS: BP 136/68; PULSE 60; RESP 18; O2SAT 93
[2023-08-29 11:04] VITALS: BP 113/63; PULSE 86; RESP 18; O2SAT 100
[2023-08-29 11:14] VITALS: BP 148/81; PULSE 60; RESP 17; O2SAT 100
--- NOTE | 2023-08-29 11:27 | SUR.PHASEII ---
JACKY Naylor requested Dr. Mcknight look at patient's heart rhythm on monitor. Dr. Mcknight assessed the heart rhythm strip and okay with rhythm.
== END 2023-08-29 11:32 | disposition home or self-care (01) ==
PROVIDERS: PCP Family Medicine; Visit Provider Internal Medicine Gastroenterology
PROC: 0DJD8ZZ Inspection of Lower Intestinal Tract, Via Natural or Artificial Opening Endoscopic (ICD-10-PCS; CPT 45378; principal; 2023-08-29 10:30)
DX: Z12.11 Encounter for screening for malignant neoplasm of colon (principal); D12.0 Benign neoplasm of cecum; D12.3 Benign neoplasm of transverse colon; K63.5 Polyp of colon; K64.8 Other hemorrhoids; K57.30 Diverticulosis of large intestine without perforation or abscess without bleeding; I11.0 Hypertensive heart disease with heart failure; I50.9 Heart failure, unspecified; E78.5 Hyperlipidemia, unspecified; E07.9 Disorder of thyroid, unspecified; E21.3 Hyperparathyroidism, unspecified; E03.9 Hypothyroidism, unspecified; F41.9 Anxiety disorder, unspecified; I70.90 Unspecified atherosclerosis; J45.909 Unspecified asthma, uncomplicated; I48.20 Chronic atrial fibrillation, unspecified; I12.9 Hypertensive chronic kidney disease with stage 1 through stage 4 chronic kidney disease, or unspecified chronic kidney disease; N18.30 Chronic kidney disease, stage 3 unspecified; G89.29 Other chronic pain; M54.9 Dorsalgia, unspecified; I50.30 Unspecified diastolic (congestive) heart failure; K21.9 Gastro-esophageal reflux disease without esophagitis; M85.88 Other specified disorders of bone density and structure, other site; I73.00 Raynaud's syndrome without gangrene; M41.9 Scoliosis, unspecified; Z79.51 Long term (current) use of inhaled steroids; Z79.01 Long term (current) use of anticoagulants; Z98.890 Other specified postprocedural states; Z98.51 Tubal ligation status; Z86.79 Personal history of other diseases of the circulatory system; Z80.3 Family history of malignant neoplasm of breast
CPT/HCPCS: 45385; 88305; J2704; J7120

== ENCOUNTER 2023-09-28 11:19 | Emergency (ER) | payer MEDICARE, SELFPAY ==
[2023-09-28] VITALS (7 sets, daily range): BP systolic 126–187; BP diastolic 95–113; PULSE 62–95; RESP 13–21; TEMP 36.4; O2SAT 95–98
--- NOTE | ~2023-09-28 | CT_ITS ---
EXAMINATION: CT brain wo con DATE: 09/28/2023 14:59 INDICATION: Right arm pain and subjective weakness. TECHNIQUE: Computed tomography (CT) of the head was performed without intravenous contrast. Sagittal and coronal reconstructions were performed. The mA was adjusted according to patient size. Iterative reconstruction technique was employed. The dose-length product was 605.33 mGy-cm. COMPARISON: None FINDINGS: No acute intracranial hemorrhage, acute infarction or abnormal extra axial fluid collection. There is moderate scattered white matter hypoattenuation consistent with chronic small vessel ischemic diseas e. Symmetric prominence of the sulci consistent with mild age-appropriate diffuse cerebral volume los s. Ventricles are normal and symmetric. No mass/mass effect. Changes of bilateral intraocular lens re placement. The orbits, paranasal sinuses and mastoid air cells are normal. IMPRESSION: 1. Age-related changes including mild diffuse on loss and moderate scattered white matter hypoattenua tion consistent with chronic small vessel ischemic disease. No acute intracranial process. Reviewed, dictated and finalized at location A. IMPRESSION: 1. Age-related changes including mild diffuse on loss and moderate scattered wh ite matter hypoattenuation consistent with chronic small vessel ischemic diseas e. No acute intracranial process.
--- NOTE | ~2023-09-28 | XR_ITS ---
EXAM: XR shoulder RT min 2V DATE: 09/28/2023 15:07 HISTORY: shoulder pain acute on chronic . COMPARISON: 08/09/2023. FINDINGS: Decreased mineralization. No fracture or dislocation. No lytic or blastic lesion. Mild AC joint and glenohumeral joint degenerative change. No erosion or periosteal change. Soft tissues withi n normal limits. Mild diffuse reticular opacities in the lungs. IMPRESSION: No acute osseous finding the right shoulder. Mild right shoulder polyarticular osteoarthr itis. Mild edema/interstitial change. Reviewed, dictated and finalized at location K. IMPRESSION: No acute osseous finding the right shoulder. Mild right shoulder po lyarticular osteoarthritis. Mild edema/interstitial change.
--- NOTE | ~2023-09-28 | CT_ITS ---
CTA chest abdomen pelvis Ordering provider: Poli Billy MD History: . r/o dissection. right arm pain to back/chest . Comparison: None. Technique: CT angiogram chest, abdomen and pelvis was performed following timed intravenous injection of contrast. Thin slice axial images and reformatted coronal images were obtained. Three dimensional reformatted images of the chest were also obtained using a [employer] workstation. Radiation reduction t echnique utilized. DLP is 683.95 mGy-cm. 100 mL Omnipaque 350 was given IV. FINDINGS: CHEST: --THORACIC AORTA: Mild atheromatous disease. No aneurysm, dissection or mediastinal hematoma. The asc ending aorta measures 3.4 cm. --GREAT VESSELS: Normal as visualized. --PULMONARY ARTERIES: No pulmonary embolus. --VISUALIZED THORACIC INLET: Normal. --MEDIASTINUM: Coronary arteries: Mild atheromatous disease. Heart/other: The heart is slightly enlarged. Lymph nodes: No mediastinal or hilar adenopathy. --LUNGS: Nodule is seen in the area of the oblique fissure which measures 1.1 x 0.7 cm. Nodule also seen in th e area of the left oblique fissure measuring 0.7 cm. No pulmonary masses. No infiltrates or effusions . No pneumothorax. Bilateral dependent atelectatic changes. --MUSCULOSKELETAL: Superficial soft tissues: The superficial soft tissues are normal. Bones: Age appropriate degenerative changes of the spine. Hemangioma in T4 and T6. S-shaped scoliosis . ABDOMEN/PELVIS: --MUSCULOSKELETAL: Bones: Age appropriate degenerative changes of the spine. S-shaped scoliosis. Pubic symphysitis. Superficial soft tissues: The superficial soft tissues are normal. --UPPER ABDOMINAL ORGANS: Liver: Fat infiltration of Gallbladder: Normal. Spleen: Normal. Stomach/duodenum: Normal. Pancreas: Normal. Adrenals: Normal. Kidneys: 1cm left kidney midpole cyst. Tiny stone in the right kidney midpole. --PELVIC ORGANS: The bladder is normal. No bladder stones. --BOWEL AND MESENTERY: Colon: No evidence of diverticulitis. Fecal material is loaded in the colon suggestive of constipatio n. The appendix is not demonstrated with no definite evidence of appendicitis. Small Bowel: Normal. No obstruction. Peritoneum/mesentery: No free air or free fluid. No mesenteric lymphadenopathy. --RETROPERITONEUM: No retroperitoneal lymphadenopathy. --ARTERIES: ABDOMINAL AORTA: Mild atheromatous disease. No aneursym or dissection. RENAL ARTERIES: Atherosclerotic changes at the origin. Narrowing bilaterally cannot be excluded. CELIAC AXIS: Atherosclerotic changes at the origin with narrowing. SMA: Atherosclerotic changes of the origin. MIKE: Normal. ILIAC AND VISUALIZED FEMORAL ARTERIES: Atherosclerotic changes. MESENTERIC ARTERIES: Normal. IMPRESSION: CHEST: 1. No evidence of aortic dissection seen. No pulmonary embolism. 2. The ascending aorta measures 3.4 cm. 3. Nodules in both lungs with the largest on the right side measuring 1.1 x 8.7 cm. 3-6 months follo w-up advised. 4. Dependent atelectatic changes in both lungs. ABDOMEN/PELVIS: 1. No evidence of aortic dissection seen. 2. No evidence of acute abdominal process 3. Tiny stone in the right kidney. 4. Constipation 5. Atherosclerotic changes at the origin of the renal, celiac and superior mesenteric arteries. 6. S-shaped scoliosis. Reviewed, dictated and finalized at location A. IMPRESSION: CHEST: 1. No evidence of aortic dissection seen. No pulmonary embolism. 2. The ascending aorta measures 3.4 cm. 3. Nodules in both lungs with the largest on the right side measuring 1.1 x 8. 7 cm. 3-6 months follow-up advised. 4. Depende
--- NOTE | 2023-09-28 11:56 | ECG_ITS ---
Test Date: 2023-09-28 12:02:15 Measurements Intervals [place] Rate: 67 P: 0 TN: 0 QRS: 116 QRSD: 155 T: -32 QT: 417 QTc: 443 Interpretive Statements ATRIAL FLUTTER WITH NORMAL VENTRICULAR RESPONSE RIGHT AXIS DEVIATION RIGHT BUNDLE BRANCH BLOCK BASELINE ARTIFACT- I, III, AVL, V6 ABNORMAL ECG No previous ECG available for comparison Electronically Signed On 09-28-2023 12:47:39 CDT by Suresh Solomon D.O.
--- NOTE | 2023-09-28 12:15 | PC.NURSE ---
patient states they feel faint in waiting room. no rooms open to place patient. updated vitals in chart. patient believes they feel faint from the pain being 10/10
--- NOTE | 2023-09-28 13:52 | ED.EXTPRO ---
HPI - Extremity Problem General Chief complaint: Extremity Problem,Nontraumatic Stated complaint: right shoulder/elbow pain Time Seen by Provider: 09/28/23 12:53 History of Present Illness HPI Narrative: This is a 78-year-old female with a past medical history including chronic atrial fibrillation/atrial flutter, hypertension, dyslipidemia, hypothyroidism. Today patient presents to the emergency department for evaluation of acute on chronic right shoulder pain. Patient states she has been going to physical therapy sessions frequently and was told that she might need hydrocortisone injections into her right shoulder for continued pain without relief after therapy session. Patient's last session was yesterday and states that today her pain on the right upper extremity has been acutely worsening it started radiating down into her elbow and slightly into her chest. She states the pain is slowly evolving throughout the encounter she is having pain now radiating into her right side chest, right-sided flank and right back. She states that the arm was so painful that she cannot even lift it without causing significant discomfort. Patient now is endorsing nauseousness and diaphoresis. Endorses no weakness or sensory deficits, headache, vision changes, abdominal pain, GI or complaints otherwise. She states she has never had pain this severe in her past and was otherwise in her normal state of health until this morning. Patient does endorse that she takes Eliquis and has not missed any dosages. Denies any head trauma, but did fall onto her right side 3 weeks prior. Related Data Home Medications Medication Instructions Recorded Confirmed furosemide 20 mg tablet 20 mg PO QAM 12/09/21 08/20/23 sacubitril 24 mg-valsartan 26 mg 1 tablet PO BID 12/09/21 08/20/23 tablet (Entresto) levothyroxine 75 mcg tablet 75 mcg PO DAILY 03/07/23 08/20/23 biotin 1 gummy PO DAILY 08/20/23 08/20/23 calcium carbonate-vitamin D3 500 1 cap PO DAILY 08/20/23 08/20/23 mg (1,250 mg)-50 unit capsule Allergies Allergy/AdvReac Type Severity Reaction Status Date / Time No Known Allergies Allergy Verified 09/28/23 11:21 Review of Systems Review of Systems: As reviewed above in the HPI [facility] Past Medical History Medical History Anxiety Arterial occlusive disease Asthma Atrial fibrillation 12/2014 CHF (congestive heart failure) Chronic atrial fibrillation Chronic mid back pain CKD (chronic kidney disease) stage 3, GFR 30-59 ml/min Colon polyp Cystocele Diastolic dysfunction Dyslipidemia Essential (primary) hypertension GERD without esophagitis Hyperparathyroidism Hypothyroidism (acquired) Intermittent asthma without complication Osteopenia Raynaud's disease without gangrene Scoliosis Thyroid disease Upper back pain Surgical History Surgical History History of cardioversion (~05/2018) History of parathyroidectomy (~10/2018) partial 10/2018 History of tubal ligation (~2004) 2004 Hx of tonsillectomy (~1952) 1952 Family History Family History Grandparent Family history of malignant neoplasm of breast Social History Social History Social History: Caffeine- coffee Smoking status: Never smoker Second hand tobacco smoke exposure: No Alcohol intake: current Drinks per week: 1 Alcohol use details: consumes 2 hard liquor drinks a month Substance use: never Substance use type: does not use Lack of Transportation: No Lack of Food: Never True Current Housing: I Have Housing Concerned About Future Housing: No Difficulty Paying Gas/Electric Bills: No Difficulty Paying for Meds: No Currently Unemployed: No Education: Master's Degree or Higher Difficulty w/ Childcare or F
[2023-09-28] MEDS: LACTATED RINGERS 1,000 ML 999 ML IV CONT (14:10)
[2023-09-28] MEDS: ONDANSETRON INJ 4 MG/2 ML VIAL IV PUSH (14:11)
[2023-09-28] MEDS: HYDROmorphone HCL INJ (*CRX) 1 MG/ML SYR 0.5 MG IV PUSH ×2 (14:13→15:33)
[2023-09-28 14:21] LABS: Basophils Percent Auto 0.4 % (0.2-1.2); Eosinophils Absolute Auto 0.2 K/mm3 (0-0.3); Eosinophils Percent Auto 2.1 % (0-4.4); Hematocrit 46.3 % (37.0-47.0); Hemoglobin 15.2 g/dL (12.0-15.0); Immature Granulocyte Absolute 0.02 K/mm3 (0.00-0.031); Immature Granulocyte Percent A 0.3 % (0-0.5); Lymphocytes Absolute Auto 1.02 K/mm3 (0.9-3.2); Lymphocytes Percent Auto 13.3 % (18.3-44.2); Mean Corpuscular HGB Conc 32.8 g/dl (32-36); Mean Corpuscular Volume 91.3 fl (80-100); Mean Platelet Volume 10.7 fl (7.4-10.4); Monocytes Absolute Auto 0.3 K/mm3 (0.1-0.6); Monocytes Percent Auto 4.3 % (2.6-8.5); Neutrophils Absolute Auto 6.1 K/mm3 (1.3-6.7); Neutrophils Percent Auto 79.6 % (45.5-73.1); Platelet Count Result 278 k/mm3 (150-375); Red Blood Count 5.07 M/mm3 (4.2-5.4); Red Cell Distribution Width 13.8 % (11.5-14.5); White Blood Count 7.7 K/mm3 (4.5-10.0)
[2023-09-28 14:32] LABS: Alanine Aminotransferase 23 U/L (6-35); Alkaline Phosphatase 155 U/L (38-126); Anion Gap 13 mmol/L (4-12); Aspartate Amino Transferase 34 U/L (14-36); Bilirubin,Total 1.1 mg/dL (0.2-1.3); Blood Urea Nitrogen 23 mg/dL (7-17); Calcium 10.6 mg/dL (8.4-10.2); Carbon Dioxide 25 mmol/L (22-30); Chloride 98 mmol/L (98-107); Estimated Glomerular Filt Rate > 60; Glucose 161 mg/dL (65-110); Magnesium 2.2 mg/dL (1.6-2.3); Potassium 4.1 mmol/L (3.4-5.0); Sodium 136 mmol/L (137-145)
[2023-09-28 14:43] LABS: Troponin I < 0.012 ng/mL (0.000-0.034)
[2023-09-28 15:09] LABS: INR 1.1; Prothrombin Time 14.7 Seconds (11.1-14.7)
[2023-09-28 15:10] LABS: Partial Thromboplastin Time 35.2 Seconds (22.3-36.8)
[2023-09-28 15:27] LABS: D Dimer 1.48 ug/mL (<0.48)
--- NOTE | 2023-09-28 16:15 | PC.NURSE ---
Lab called to add on blood work
[2023-09-28] MEDS: dexAMETHasone SOD PHOS INJ 10 MG/ML 1 ML VIAL IV PUSH (16:37)
== END 2023-09-28 16:55 | disposition home or self-care (01) ==
PROVIDERS: Emergency Provider Student in an Organized Health Care Education/Training Program; PCP Family Medicine
DX: M25.511 Pain in right shoulder (principal); G89.29 Other chronic pain; R07.9 Chest pain, unspecified; I13.0 Hypertensive heart and chronic kidney disease with heart failure and stage 1 through stage 4 chronic kidney disease, or unspecified chronic kidney disease; N18.30 Chronic kidney disease, stage 3 unspecified; I50.9 Heart failure, unspecified; I48.20 Chronic atrial fibrillation, unspecified; I48.92 Unspecified atrial flutter; I73.00 Raynaud's syndrome without gangrene; E78.5 Hyperlipidemia, unspecified; E03.9 Hypothyroidism, unspecified; E21.3 Hyperparathyroidism, unspecified; J45.20 Mild intermittent asthma, uncomplicated; K21.9 Gastro-esophageal reflux disease without esophagitis; M85.80 Other specified disorders of bone density and structure, unspecified site; Z86.010 Personal history of colon polyps; Z90.89 Acquired absence of other organs; I45.10 Unspecified right bundle-branch block; K59.00 Constipation, unspecified; R91.8 Other nonspecific abnormal finding of lung field; I71.21 Aneurysm of the ascending aorta, without rupture; M19.011 Primary osteoarthritis, right shoulder
CPT/HCPCS: 36415; 70450; 71275; 73030; 74174; 80053; 83735; 84484; 85025; 85380; 85610; 85730; 93005; 96361; 96374; 96375; 96376; 99284; J1100; J1170; J2405; J7120; Q9967

== ENCOUNTER 2023-10-09 09:03 | Outpatient (CLI) | payer MEDICARE, SELFPAY ==
--- NOTE | ~2023-10-09 | MR_ITS ---
MRI of the right shoulder Technique: Axial proton-density fat-sat images, coronal proton density fat-sat and T2 fat-sat images, and sagittal T1-weighted and T2 fat-sat images were acquired. Clinical History: Rotator cuff insufficiency Findings: There is [id number] AC joint degenerative change. Coracoclavicular, coracoacromial, a nd coracohumeral ligaments appear intact. There is full-thickness tear involving the anterior and central portions of the supraspinatus tendon, with fluid-filled gap measuring approximately 2.7 x 3.2 cm in extent. Infraspinatus tendon is intact . Subscapularis tendon demonstrates complete full-thickness tear distally, with retraction to the lev el of the glenohumeral joint. There is complete rupture of the proximal long head biceps tendon, whic h is retracted to the bicipital groove. There is probable degenerative attenuation of the superior labrum, without discrete, detached labral tear. Inferior glenohumeral ligament is intact. There is large glenohumeral joint effusion with fluid passi ng through the rotator cuff defect into the subacromial/subdeltoid bursa, which is markedly distended with synovitis and/or debris. There is additional fluid distention of the subscapularis recess with synovitis and/or debris/loose bodies. Articular cartilage in the glenohumeral joint is intact. No def inite muscle atrophy or edema. Impression: 2.7 x 3.2 cm full-thickness tear involving the anterior and central portions of the supraspinatus ten don. Complete tear of the distal subscapularis tendon. Complete rupture of the proximal long head biceps tendon, which is retracted to the bicipital groove. Large glenohumeral joint effusion and prominent subcarinal/subdeltoid bursitis, with extensive synovi tis and/or debris/loose bodies, especially in the subscapularis recess of the joint. Given the large joint effusion with relatively mild degenerative changes, correlate for inflammatory process or arthr itis involving the glenohumeral joint. Consider joint aspiration as indicated. Reviewed, dictated and finalized at location M. Impression: 2.7 x 3.2 cm full-thickness tear involving the anterior and central portions of the supraspinatus tendon. Complete tear of the distal subscapularis tendon. Complete rupture of the proximal long head biceps tendon, which is retracted to the bicipital groove. Large glenohumeral joint effusion and prominent subcarinal/subdeltoid bursitis, with extensive synovitis and/or debris/loose bodies, especially in the subscap ularis recess of the joint. Given the large joint effusion with relatively mild degenerative changes, correlate for inflammatory process or arthritis involvin g the glenohumeral joint. Consider joint aspiration as indicated.
== END 2023-10-09 09:04 ==
LOC: MICIMG 09:04
PROVIDERS: PCP Family Medicine; Visit Provider Physician Assistant
DX: M75.101 Unspecified rotator cuff tear or rupture of right shoulder, not specified as traumatic (principal); M25.411 Effusion, right shoulder; M19.011 Primary osteoarthritis, right shoulder
CPT/HCPCS: 73221

== ENCOUNTER 2023-10-09 10:14 | Outpatient (CLI) | payer MEDICARE, SELFPAY ==
--- NOTE | ~2023-10-09 | CT_ITS ---
CT Scan of the Chest without Contrast: Clinical Indication: Other nonspecific abnormal finding of lung field Technique: Contiguous sections were acquired throughout the chest without intravenous contrast. Dose reduction technique was used on this scan by utilizing automated exposure control and iterative recon struction technique. The dose-length product (DLP) was 170.80 mGy-cm. COMPARISON: 09/28/2023 Findings: There is no evidence of any significant mediastinal, hilar or axillary lymphadenopathy. Calcified sub carinal lymph nodes present. There are moderate coronary artery calcifications.. There is no evidence of pleural or pericardial effusion. Calcified right lower lobe granuloma present. There is mild chronic bibasilar scarring or atelectatic change. 4 mm nodule along the left fissure is unchanged (axial image 60). Images through the upper abdomen reveal no abnormalities. Impression: Stable 4 mm nodule along the left fissure. Previously noted nodular opacity along the right oblique f issure is resolved. Reviewed, dictated and finalized at location . Impression: Stable 4 mm nodule along the left fissure. Previously noted nodular opacity kirsten ng the right oblique fissure is resolved.
== END 2023-10-09 10:15 | disposition home or self-care (01) ==
PROVIDERS: PCP Family Medicine; Visit Provider Nurse Practitioner
DX: R91.8 Other nonspecific abnormal finding of lung field (principal)
CPT/HCPCS: 71250

== ENCOUNTER 2023-10-18 10:51 | Outpatient (CLI) | payer MEDICARE, SELFPAY | END 2023-10-18 10:52 | disposition home or self-care (01) | LOC: ANHAUDASC 10:53 | PROVIDERS: PCP Family Medicine; Visit Provider Nurse Practitioner | DX: H90.3 Sensorineural hearing loss, bilateral (principal) | CPT/HCPCS: 92557; 92567 ==

== ENCOUNTER 2024-03-03 14:10 | Outpatient (CLI) | payer MEDICARE, SELFPAY ==
[2024-03-03 21:49] LABS: Alanine Aminotransferase 36 U/L (6-35); Albumin Level 4.2 g/dL (3.5-5.1); Alkaline Phosphatase 202 U/L (38-126); Anion Gap 5 mmol/L (4-12); Aspartate Amino Transferase 61 U/L (14-36); Bilirubin,Total 0.8 mg/dL (0.2-1.3); Blood Urea Nitrogen 35 mg/dL (7-17); Calcium 10.3 mg/dL (8.4-10.2); Carbon Dioxide 31 mmol/L (22-30); Chloride 104 mmol/L (98-107); Estimated Glomerular Filt Rate 43; Glucose 88 mg/dL (65-110); Sodium 140 mmol/L (137-145)
[2024-03-03 22:28] LABS: Hemoglobin A1C 5.9 % (<5.7)
[2024-03-03 23:15] LABS: Free T4 Free Thyroxine Reflex 1.87 ng/dL (0.78-2.19)
[2024-03-04 00:01] LABS: Total Triiodothyronine (T3) 0.85 NG/ML (0.97-1.69)
== END 2024-03-03 14:11 | disposition home or self-care (01) ==
LOC: ANHGOSHLAB 14:10
PROVIDERS: PCP Family Medicine; Visit Provider Family Medicine
DX: E03.9 Hypothyroidism, unspecified (principal); R73.9 Hyperglycemia, unspecified; I10 Essential (primary) hypertension
CPT/HCPCS: 36415; 80053; 83036; 84439; 84443; 84480

== ENCOUNTER 2024-07-14 08:49 | Outpatient (CLI) | payer MEDICARE, SELFPAY ==
--- NOTE | ~2024-07-14 | MM_ITS ---
EXAMINATION: MM screening [facility] BI w ami HISTORY: Screening mammogram TECHNIQUE: Craniocaudal and mediolateral oblique 3-D tomosynthesis images were obtained and synthetic 2-D images were generated. CAD analysis was submitted and interpreted. COMPARISON: 11/28/2022, 08/11/2021, 02/24/2020 BREAST PARENCHYMAL COMPOSITION:Not Dense. There are scattered areas of fibroglandular density. FINDINGS: No suspicious mass, calcification, or architectural distortion are identified in either jesse ast to suggest malignancy. There has been no suspicious interval change. IMPRESSION: No mammographic evidence of malignancy. Recommend routine screening mammography in one year. BI-RADS Category 1: Negative Reviewed, dictated and finalized at location .
--- OUTSIDE RECORDS SUMMARY | 2024-07-14 08:54 | XMS_ITS | Clinical Summary ---
Author [place] [facility] [place] [address] Address [address] [place] [address] Care Team Providers Care Gender Studies Professor Name Role Phone Danie Moreno MD Primary Care Provider Sera Arana MD Unavailable Allergies No known active allergies Medications atorvastatin (LIPITOR) 10 mg tablet Take 1 tablet (10 mg total) by mouth daily. 30 tablet 11 8 Active levothyroxine (SYNTHROID) 75 mcg tabletIndication s:hypothyroidism Take 1 tablet (75 mcg total) by mouth healthcare network pricing consultant before breakfast 9 Active albuterol HFA (PROVENTIL HFA,VENTOLIN HFA,PROAIR HFA) 90 mcg/actuation inhalerIndicatio ns:Acute Asthma Attack Inhale 2 puffs every 6 (six) hours as needed for wheezing Active metoprolol XL (TOPROL-XL) 100 mg 24 hr tabletIndication s:Atrial Arrhythmia,hyper tension Take 1 tablet (100 mg total) by mouth nightly 90 tablet 3 9 Active apixaban (Eliquis) 5 mg tabletIndication s:atrial fibrillation Take 1 tablet (5 mg total) by mouth 2 (two) times a day 0 Active DULoxetine 30 mg capsule, delayed rel sprinkleIndicati ons:Generalized Anxiety Disorder Take 1 capsule (30 mg total) by mouth every morning 2 Active furosemide (LASIX) 20 mg tabletIndication s:Chronic diastolic CHF (congestive heart failure) (HCC) TAKE 1 TABLET BY MOUTH DAILY 90 tablet 2 4 Active methocarbamoL (ROBAXIN) 750 mg tablet Take 1 tablet (750 mg total) by mouth 3 (three) times a day 90 tablet 4 Active Additional Information Patient not taking.Informant: Self, Reported on 02/21/[address] (PROTONIX) 20 mg EC tabletIndication s:reflux Take 1 tablet (20 mg total) by mouth every morning 4 Active cholecalciferol (VITAMIN D-3) 1,000 unitIndications: supplement Take 1 tablet/capsule (1,000 Units total) by mouth every morning Active oxyCODONE (ROXICODONE) 5 mg immediate release tabletIndication s:Pain Take 1 tablet (5 mg total) by mouth every 4 (four) hours as needed for pain 30 tablet 4 Active Additional Information Patient not taking.Reported on 02/21/2024 acetaminophen 500 mg capsuleIndicatio ns:Pain Take 2 capsules (1,000 mg total) by mouth every 6 (six) hours 90 tablet 4 Active Additional Information Patient taking differently:1,000 mg oralAs needed, Indications: Pain, Reported on 02/21/2024 celecoxib (CeleBREX) 100 mg capsuleIndicatio ns:Pain Take 1 capsule (100 mg total) by mouth 2 (two) times a day 60 capsule 4 Active docusate sodium (COLACE) 100 mg capsuleIndicatio ns:constipation Take 1 capsule (100 mg total) by mouth 2 (two) times a day 60 capsule 4 Active Additional Information Patient not taking.Reported on 02/21/2024 dapagliflozin propanediol (Farxiga) 10 mg tabletIndication s:Chronic diastolic CHF (congestive heart failure) ([facility]) TAKE 1 TABLET BY MOUTH DAILY 90 tablet 2 5 Active sacubitriL-valsa rtan (Entresto) 24-26 mg tabletIndication s:Chronic diastolic CHF (congestive heart failure) ([facility]) TAKE 1 TABLET BY MOUTH TWICE DAILY 180 tablet 2 5 Active Active Problems Problem Noted Date Diagnosed Date S/P reverse total shoulder arthroplasty, right 0 11/14/2023 Tear of right rotator cuff 11/01/2023 Chronic heart failure with preserved ejection fr action 11/14/2021 Pulmonary hypertension 11/14/2021 Hyperparathyroidism (CMS/HCC) 07/26/2018 Overview (07/26/2018): Added automatically from request for surgery [id number] Pulsatile tinnitus 06/16/2017 Hypercholesteremia 06/16/2017 BECKER (dyspnea on exertion) 12/06/2016 Assessment & Plan (12/10/2016 4:09 PM CDT): Pt has more problems with BECKER. Unclear if this is 2nd to a fib RVR or other causes (pulmonary?). Echo and rufino in 2013 and 2014 showed EF 70% and no evidence of ischemia. Has never sensed any palpitations, But I wonder if her BECKER is 2nd a fib RVR. Cystocele without uterine prolapse 06/26/2016 Osteoarthritis 06/23/2016 Overview (07/28/2016): Osteoarthritis, unspecified osteoarthritis type, unspecified site Chronic anticoagulation 01/11/2015 Overview (06/08/2016): Chronic anticoagulation Anxiety 12/18/2014 Overview (06/08/2016): Anxiety Benign essential hypertension 12/18/2014 Overview (05/01/2018): Essential hypertension Assessment & Plan (12/10/2016 4:11 PM CDT): Hypertension is under control. Skin wrinkling 11/25/2014 Persistent atrial fibrillation 10/07/2013 Essential hypertension 07/19/2010 Overview (06/14/2017): Description: Hypertension Resolved Problems Problem Noted Date Diagnosed Date Resolved Date Nonspecific abnormal finding 06/26/2016 11/14/2021 Paroxysmal atrial flutter 03/30/2015 Overview (06/08/2016): Paroxysmal atrial flutter History of atrial fibrillation 01/11/2015 12/10/2016 Overview (06/08/2016): History of chronic atrial fibrillation PAF (paroxysmal atrial fibrillation) 12/18/2014 10/30/2018 Overview (06/08/2016): Atrial fibrillation and flutter Assessment & Plan (01/19/2017 1:27 PM DIRECTOR PHARMACOVIGILANCE): We discussed options for management today. She has a relatively high burden of atrial fibrillation ( 67% on 14 day monitor) but overall she has infrequent symptoms. Some of her symptom episodes did correspond today atrial fibrillation with RVR, which would likely respond to rate control, but other episodes occurred with normal rate. She tried flecainide but felt worse and this was discontinued. She seems hesitant to try any treatments or procedures at this point, but I am concerned that her atrial fibrillation will continue to progress. She is very active lady, and I do not want her to limit her activities or reduce her quality of life due to atrial fibrillation. We discussed antiarrhythmic therapy, which could be done with an alternative agent such as sotalol. I did discuss with her that this require inpatient admission for drug loading and monitoring. We could also consider EP study and ablation for atrial fibrillation and atrial flutter. I discussed the procedure today with her and her . We discussed risks, including bleeding, damage to surrounding structures, stroke, esophageal perforation, cardiac tamponade, need for additional procedures, recurrence, and anesthesia complication. At this point she is not willing to proceed with the procedure. She would like to think about starting a medication. I told her that ablation for paroxysmal atrial fibrillation has about a 70% chance of success. Antiarrhythmic drugs have around a 30% chance of success. We also discussed lifestyle modifications, including weight loss and yoga for reduction of symptomatic episodes of atrial fibrillation. She has not had a sleep evaluation and I have recommended that she get 1 given her diagnoses of hypertension and atrial fibrillation. She should remain on anticoagulation for life given her chads 2 Vasc score of 3 (female, age, hypertension). I will see her again in 3 months time to review her options. If in the meantime she wants to proceed with antiarrhythmic drug then she will contact me. Assessment & Plan (12/10/2016 4:10 PM CDT): Appears to be in NSR today. On AQ w/ Eliquis, no bleeding. Keratosis, senilis 11/25/2014 Midline cystocele 01/19/2014 11/14/2021 Pleural cavity effusion 08/07/201311/03 Never smoked tobacco 02/16/2011 022 Lumbago 02/09/2011 11/14/2021 Encounters Date Type Department Care Team Description 07/02/2024 Telephone [facility] Orthopaedic Surgery [address] [place] [address] Gareth Mora MD 06/27/2024 Telephone [facility] Orthopaedic Surgery [address] [place] [address] Gareth Mora MD from Last 3 Months Surgical History Surgery Date Site/Laterality Comments TUBAL LIGATION 03/05/1986 - 03/04/1987 CHEST TUBE INSERTION 03/05/2014 - 03/04/2015 CARDIOVERSION 05/14/2018 CATARACT EXTRACTION W/ INTRA OCULAR LENS IMPLANT Bilateral Medical History Medical History Date Comments Disorder of thyroid 2 nodules in ferior to the left thyroid lobe that measure 1.0 cm x 0.6 cm x 0.7 cm and 0.7 cm x 0.4 cm x 0.5 cm. Hx Other Medical Back Pain Malignant neoplasm of skin Cance r, skin Hypertension Hypertension Atrial fibrillation and flutter (HCC) DCCV 05/2018-- Eliquis Thyroid nodule 06/19/2018 2 nodules inferi or to the left thyroid lobe that measure 1.0 cm x 0.6 cm x 0.7 cm and 0.7 cm x 0.4 cm x 0.5 cm. Primary hyperparathyroidism Hypercalcemia Osteopenia Heart disease Anxiety 09/2021 Asthma 2013 Clotting disorder Dysmenorrhea Sleep apnea 11/2021 GERD (gastroesophageal reflux disease) 08/2003 Cataract Tuberculosis Family History Medical History Relation Name Comments Depression Daughter 1 Eun Developmental delay Daughter 1 Eun Developmental delay Daughter 2 Eun Houser Mental illness Daughter 2 Eun Houser Atrial fibrillation Father Yo Antoneney Heart disease Father Yo Antoneney Hypertension Father Yo White Other Father Yo Antoneney Breast cancer Maternal Grandmother Depression Mother Ashley Christopher Mental illness Mother Ashley White Suicidality Mother Ashley White Suicide; Cau se of : Suicide Breast cancer Mother's Sister Arthritis Other 1 Family history of Arthritis; Heart disease Other 2 Family history of heart problems; Mental illness Other 3 Family histor y of Mental illness; Ovarian cancer Sister 2 Cancer, ovari an; Other Sister 3 Alive and well; Anesthesia problems Neg Hx Relation Name Status Comments Daughter 1 Eun Daughter 2 Eun Houser Father Yo White Maternal Grandmother Mother Ashley White (Age 52) Mother's Sister Other 1 Other 2 Other 3 Sister 1 Alive Sister 2 Sister 3 Social History Tobacco Use Types Packs/Day Years Used Date Smoking Tobacco: Never Smokeless Tobacco: Never Alcohol Use Standard Drinks/Week Comments Yes 0 (1 standard drink = 0.6 oz pur e alcohol) socially AUDIT-C Answer Date Recorded Q1: How often do you have a drink containing alc ohol? Monthly or less 11/14/2023 Q2: How many drinks containi ng alcohol do you have on a typical day when you are drinking? 1 or 2 11/14/2023 Q3: How often do you have si x or more drinks on one occasion? Never 11/14/2023 Personal Safety Answer Date Recorded Have you ever been in or are you currently in a harmful physical or emotional relationship or is someone making you feel afraid or unsafe? Denies 11/14/2023 Comments No Sex and Gender Information Value Date Recorded Sex Assigned at Not on file Legal Sex Female 3:48 AM DIRECTOR PHARMACOVIGILANCE Gender Identity Female 11/29/2023 4:26 PM CDT Sexual Orientation Not on file Obstetrics History Last Filed Vital Signs Vital Sign Reading Time Taken Comments Blood Pressure 118/60 02/21/2024 1:44 PM DIRECTOR PHARMACOVIGILANCE Pulse 82 02/21/2024 1:44 PM DIRECTOR PHARMACOVIGILANCE Temperature 37.2 C (99 F) 11/15/2023 8:33 AM CDT Respiratory Rate 18 11/15/2023 8:33 AM CDT Oxygen Saturation 98% 02/21/2024 1:44 PM DIRECTOR PHARMACOVIGILANCE Inhaled Oxygen Concentration - - Weight 65.8 kg (145 lb) 02/21/2024 1:44 PM DIRECTOR PHARMACOVIGILANCE Height 152.4 cm (5') 02/21/2024 1:44 PM DIRECTOR PHARMACOVIGILANCE Body Mass Index 28.32 02/21/2024 1:44 PM DIRECTOR PHARMACOVIGILANCE Plan of Treatment Health Maintenance Due Date Last Done Comments Depression Screening 1945 Hepatitis C Screening 1945 DTaP/Tdap/Td Vaccine (1 - Tdap) 1956 Hepatitis B Screening 05/23/1963 Zoster Vaccine (1 of 2) 05/23/1995 Well Visit 65+ 2010 Osteoporosis Screening-Bone Density Scan 10/12/2021 10/13/2019, 10/04/2018 Influenza Vaccine (Season Ended) 2024 12/27/2018, 01/17/2018, 01/15/2017, Additional history exists Fall Risk Assessment 11/13/2024 11/14/2023 Pneumococcal vaccine 65+ Completed 12/06/2015, 07/04 Breast Cancer Screening-Mammogram Discontinued 019 Medical Devices Implanted Type Area Machine Precision Etcher Device Identifier Shelf Expiration Date Model / Serial / Lot [employer] Tornier Aequalis Perform 33mm Lateralize Reverse Shoulder +3mm [id number] - [id number] - [id number] Implanted:Qty: 1 on 11/14/2023 by Gareth Mora MD at [facility] Right: Shoulder [employer] 02/24/2028 [id number] / [id number] / [employer] Tornier Aequalis Perform 25mm Reverse Shoulder Standard Baseplate [id number] - [id number] - [id number] Implanted:Qty: 1 on 11/14/2023 by Gareth Mora MD at [facility] Right: Shoulder [employer] 03/03/2028 [id number] / [id number] / [employer] Aequalis Perform 7mm Reverse Screw Bone Sterile Latex Free [id number] - [id number] - [id number] Implanted:Qty: 1 on 11/14/2023 by Gareth Mora MD at [facility] Right: Shoulder [employer] 01/09/2028 [id number] / [id number] / [employer] Screw Glenoid Locking Reverse Aequalis Perform 5.0x26mm Titanium Vmb199 - [id number] Implanted:Qty: 2 on 11/14/2023 by Gareth Mora MD at [facility] Right: Shoulder [employer] [id number] / / [employer] Stem Humeral Shoulder Reverse Aequalis Perform [id number] - [id number] - [id number] Implanted:Qty: 1 on 11/14/2023 by Gareth Mora MD at [facility] Right: Shoulder [employer] 07/04/2028 [id number] / [id number] / [employer] Insert Perform 10 Deg [id number] [id number] - [id number] - [id number] Implanted:Qty: 1 on 11/14/2023 by Gareth Mora MD at [facility] Right: Shoulder [employer] 11/17/2026 [id number] / [id number] / [employer] Restrictor Bone Cement Elbow Polyethylene Aqualis 8-15mm [id number] - [id number] - [id number] Implanted:Qty: 1 on 11/14/2023 by Gareth Mora MD at [facility] Right: Shoulder [employer] [id number] 06/29/2028 [id number] / [id number] / [employer] Simplex P Radiopaque Full Dose Cement Bone Sterile [id number] - [id number] Implanted:Qty: 1 on 11/14/2023 by Gareth Mora MD at [facility] Right: Shoulder [employer] 07/02/2025 [id number] / / [id number] Procedures Procedure Name Priority Date/Time Associated Diagnosis Comments DEXA AXIAL AND FOREARM BONE DENSITY SCAN Schedule Routine, Read Routine (OP Routine) 10/13/2019 1:30 PM CDT Primary hyperparathyroidism from Last 3 Months or Most Recently Relevant to Health Maintenance Results * Dexa Axial and Forearm Bone Density Scan (10/13/2019 1:30 PM CDT) Anatomical Region Laterality Modality Wrist, Body N/A Radiographic Becki ging Narrative 10/14/2019 8:59 AM CDT Patient Name: Lena West Date of : 1945 Date of scan: 10/13/2019 Bone mineral density was performed on a H[employer] Discovery Densitometer. Machine Cross-calibration and Precision studies have been performed with a least significant change of 0.024 g/cm at the spine, 0.020 g/cm at the total proximal femur, and 0.014g/cm at the forearm. HISTORY: This is a 74 y.o. postmenopausal female with a history of hyperparathyroidism, low bone mass and thyroid disease. Currently on treatment with anticoagulants and thyroid hormone. Previously treated with Actonel, Boniva and Fosamax. With a current complaint of back pain. History of tobacco use: Social History Tobacco Use Smoking Status Never Smoker INDICATIONS: Menopause status and history of low bone mass. FINDINGS: BONE MINERAL DENSITY OF THE LUMBAR SPINE Bone Mineral Density (BMD) of the lumbar spine was measured from L2-L4 and the average density was calculated to be 0.855 gm/cm. This corresponds to a T-score standard deviations from the mean of young adults of -2.0. There is no previous study available for comparison. BONE MINERAL DENSITY OF THE PROXIMAL FEMUR Bone Mineral Density (BMD) of the left hip total was found to be 0.860 gm/cm2. This corresponds to a T-score standard deviations from the mean of young adults of -0.77. Femoral neck is 0.679 gm/cm2 with a T-score of -1.5. There is no previous study available for comparison. BONE MINERAL DENSITY OF THE FOREARM Bone Mineral density (BMD) of the left proximal 1/3 of the radius measures 0.566 gm/cm2. This corresponds to a T-score standard deviations from the mean of young adults of -2.1. There is no previous study available for comparison. A forearm bone density study was performed due to the history of hyperparathyroidism . SUMMARY: Bone mineral density shows evidence of low bone mass in the hip, spine, and forearm and moderately increased fracture risk. ADDITIONAL COMMENTS: Please note that L-1 was excluded from the bone density analysis of the lumbar spine due to T-score being greater that 1.0 standard deviation from the adjacent vertebral body. If the patient has a history of a fragility fracture, a fracture that occurred with trauma equivalent to a fall from a standing position or less, then the diagnosis is osteoporosis. The risk of osteoporotic fracture increases approximately 2-fold for each 1.0 SD decrease in T-score. However, low bone density is not the only risk factor for fracture. Other factors include patient s age, previous osteoporotic fracture or prior fracture as an adult, loss of height of greater than 2 inches, corticosteroid use, risk of falling, risk of injury, and family history of osteoporosis. Not everyone with low bone mineral density has osteoporosis. Osteomalacia and other metabolic bone disorders should also be considered where indicated. Patients who have osteoporosis should be evaluated for specific diseases and conditions (secondary causes) that may cause or contribute to bone loss. Consider repeating this study in 1-2 years to assess the patient s response to treatment, if applicable. It is recommended that any follow up exam be performed on the same machine if possible for better accuracy. DEFINITIONS: Osteoporosis: BMD at or below -2.5 T-score Osteopenia (low bone mass): BMD between -1.0 and-2.5 T-score. The Bone Health Program adopts the following WHO definitions: Osteoporosis: BMD below -2.5 S.D. as compared to the BMD of young normal adults. Osteopenia or Low Bone Mass: BMD between -1.0 and -2.5 S.D. below the BMD of young normal adults. Normal Bone Density: BMD equal to or greater than -1.0 S.D. as compared to the BMD of young normal adults. References: 1) Remiigo, Annals of Internal Medicine 114(11): 919-923 (1990) 2) Bernabe, Lancet 341 : 72-75 (1992) 3) Black, Journal Bone and Mineral Research 7(6): 633-8 (1991) 4) Stubbs, Journal Bone and Mineral Research 8(10):1227-33 (1992) The history and data sections of the bone mineral density scan were prepared by Velma MCGUIRE who is accredited by the International Society of Clinical Densitometry. The overall patient assessment and scan interpretation were performed by Natalya Matson M.D. who is certified by the International Society of Clinical Densitometry. [id number] Khari Keating MD IM DXA PROCEDURES Evy l Result from Last 3 Months or Most Recently Relevant to Health Maintenance Insurance [employer] [facility] Address: [address] [address] [place] [address] [facility] MED[place] ADVANTAGE [facility] ADV[place] Advance Directives For more information, please contact: [phone] Documents on File Type Date Recorded Patient Photoengraver Expl anation ADVANCE DIRECTIVE 11/14/2023 5:55 AM Gage thornton Will * Full Code (Latest Code Status on File) Date Activated Date Inactivated Comments 11/14/2023 1:16 PM 11/15/2023 1:43 PM * Full Code Date Activated Date Inactivated Comments 10/18/2018 1:28 PM 10/19/2018 6:08 PM * Full Code Date Activated Date Inactivated Comments 05/14/2018 9:46 AM 05/15/2018 4:42 AM Care Teams Gender Studies Professor Relationship Specialty Start Date End Date Danie Moreno MD PCP - General Family Practice 12/06/16 Sera Arana MD [address] [place] [address] [place] [address] Consulting Physician Sleep Medicine 05/04/22
--- OUTSIDE RECORDS SUMMARY | 2024-07-14 08:54 | XMS_ITS | Continuity of Care Document ---
Author Organization [facility] Address [address] [place] [address] [address] [place] [address] Phone Care Team Providers Care Statement Services Representative Name Role Phone Saba Garcia Unavailable Unavailable Advance Directives Directive Yes / No Effective Date File Name No Information Encounters Encounter Description Practice Location Reason(s) For Visit Diagnoses Date Provider Providers Copied on Encounter [facility], [address], [place], [place], [id number], [place] tel:[phone] [facility] No Information [address]. [address] , [address], [place], [address], [place]. tel:[phone] Family History Family Member Type Diagnosis Age At Onset No Information Payers Payer name Insurance type Covered alliance party ID Authoriza tion(s) No Information Social History [...]
--- OUTSIDE RECORDS SUMMARY | 2024-07-14 08:54 | XMS_ITS | Clinical Summary ---
Author Organization [facility] Address [address] [place] [address] Phone Care Team Providers Care Marketing Finance Specialist Name Role Phone Danie Moreno MD Primary Care Provider Allergies No known active allergies Medications metoprolol succinate (TOPROL XL) 100 mg Extended Release 24 hour tablet 9 Active levothyroxine 88 mcg tablet 9 Active atorvastatin (LIPITOR) 10 mg tablet Take 10 mg by mouth. 8 Active ELIQUIS 5 mg tablet 9 Active amitriptyline (ELAVIL) 50 mg tablet 9 Active acetaminophen (TYLENOL) 325 mg tablet Take 650 mg by mouth. Active pantoprazole (PROTONIX) 40 mg Tablet, Delayed Release (E.C.) TAKE 1 TABLET BY MOUTH ONCE DAILY IN THE MORNING 0 Active vit B1 [id number]- [id number]-T-OR [id number] mg Tablet Take by mouth. Activ e estradioL (ESTRACE) 0.01% (0.1 mg/g) vaginal cream Insert vaginally every 7 days. Insert 1/2 Gm vaginally every wk 42.5 Gram 1 1 Active Farxiga 10 mg Tablet Take 10 mg by mouth daily. 3 Active Entresto 24-26 mg Tablet Take 1 Tablet by mouth daily. 3 Active Active Problems No known active problems Family History Medical History Relation Name Comments Healthy Daughter Other Father Afib Breast Cancer Maternal Aunt Breast Cancer Maternal Grandmother Healthy Son Relation Name Status Comments Daughter Alive Father Maternal Aunt Maternal Grandfather Maternal Grandmother Mother Paternal Grandfather Paternal Grandmother Son Alive Social History Tobacco Use Types Packs/Day Years Used Date Smoking Tobacco: Never Smokeless Tobacco: Never Alcohol Use Standard Drinks/Week Comments Yes 0 (1 standard drink = 0.6 oz pur e alcohol) Comments No Sex and Gender Information Value Date Recorded Sex Assigned at Not on file Legal Sex Female 3:26 PM CDT Gender Identity Not on file Sexual Orientation Not on file Last Filed Vital Signs Vital Sign Reading Time Taken Comments Blood Pressure 118/76 02/18/2021 8:46 AM MICROARRAY ANALYST Pulse - - Temperature - - Respiratory Rate - - Oxygen Saturation - - Inhaled Oxygen Concentration - - Weight 68.4 kg (150 lb 12.8 oz) 02/18/2021 8:46 AM MICROARRAY ANALYST Height 150.9 cm (4' 11.4 ) 02/18/2021 8:46 AM CS T Body Mass Index 30.05 02/18/2021 8:46 AM MICROARRAY ANALYST Plan of Treatment Health Maintenance Due Date Last Done Comments DTAP/TDAP/TD VACCINES (1 - Tdap) 1964 PNEUMOCOCCAL VACCINE 50+ YEARS (1 of 1 - PCV) 05/22/18 96 ZOSTER VACCINE (1 of 2) 05/23/1995 OSTEOPOROSIS SCREENING 2010 RSV VACCINE (60+ or ) (1 - 1-dose 75+ series) 2020 INFLUENZA VACCINE (#1) 2023 12/16/2019 Colorectal Cancer Screening Discontinued FIT/FOBT Q 1 year Discontinued 02/05/2019 COLORECTAL SCREENING Discontinued FIT-DNA Q 3 years Discontinued Flex Sig/CT Colonography Q 5 years Discontinued Procedures Procedure Name Priority Date/Time Associated Diagnosis Comments POC OCCULT BLOOD, IMMUNO, QUAL, STOOL Routine 02/05/2019 12:07 PM MICROARRAY ANALYST Encounter for screening for malignant neoplasm of rectum from Last 3 Months or Most Recently Relevant to Health Maintenance Results * POC OCCULT BLOOD, IMMUNO, QUAL, STOOL (02/05/2019 12:07 PM MICROARRAY ANALYST) OCCULT BLOOD, IMMUNOASSAY POC Negative Negative [facility] [address] INTERNAL KIT QC Pass Pass [facility] [address] KIT [address] NUMBER POC [phone] [facility] [address] [address] KIT EXPIRATION DATE POC [phone] [facility] [address] [address] Stool STOOL SPECIMEN / Unknown 02/05/2019 12:07 PM MICROARRAY ANALYST Caprice Carr MD POINT OF CARE TESTING Evy hernandez Result [facility] [address] CLIA# [id number] [address] [facility] [address] [place] [address] from Last 3 Months or Most Recently Relevant to Health Maintenance Insurance [facility] [id number] Care Teams Marketing Finance Specialist Relationship Specialty Start Date End Date Danie Moreno MD [address] [place] [address] PCP - General Family Practice 02/03/19
--- OUTSIDE RECORDS SUMMARY | 2024-07-14 08:54 | XMS_ITS | Clinical Summary ---
Author Organization [email or web address] Address [address] [place] [address] Care Team Providers Care Power Distribution Engineer Name Role Phone Danie Moreno MD Primary Care Provider Source Comments [email or web address],non-owned Affiliates and Associated Physician Practices is amultiple site organization consisting of ambulatory clinics and hospital sitesin [place], [place], [place] and [place]. This disclosure is being madepursuant to the Care Everywhere program and may not contain all information available regarding this patient. Last updated 17.[email or web address] Allergies No known active allergies Immunizations Immunization Administration Dates Next Due INFLUENZA VACCINE, HIGH-DOSE , QUADR. 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 Gender Identity Not on file Sexual Orientation Not on file Plan of Treatment Health Maintenance Due Date Last Done Comments DTAP/TDAP/TD VACCINES (1 - Tdap) 1964 PNEUMOCOCCAL VACCINE 50+ (1 of 1 - PCV) 05/23/1995 ZOSTER VACCINE (1 of 2) 05/23/1995 Respiratory Syncytial Virus (RSV) Vaccine Pt: or over 60 yrs (1 - 1-dose 75+ series) 2020 COVID-19 VACCINE ( - 2023-2 5 season) 2023 DEPRESSION SCREENING 03/05/2024 MEDICARE AWV CALENDAR YEAR 2024 INFLUENZA VACCINE (Season Ended) 2024 12/16/19 BONE DENSITY TESTING Completed 10/13/2019 HEPATITIS B VACCINE Aged Out No longe r eligible based on patient's age to complete this topic HIB VACCINE Aged Out No longer eligi ble based on patient's age to complete this topic HPV VACCINE Aged Out No longer eligi ble based on patient's age to complete this topic MENINGOCOCCAL (Group B) VACC INE SHARED DECISION-MAKING Aged Out No longer eligibl e based on patient's age to complete this topic MENINGOCOCCAL GROUPS A/C/Y/W VACCINE Aged Out No longer eligible b ased on patient's age to complete this topic Insurance MEDICARE [facility] MEDICARE [facility] MEDICARE [facility] MANAGED MEDICARE ADV * Guarantor: SUMAN NAVAS Account Type Relation to Patient Date of Phone Billing Address Personal/Family [address] [place] [address] [place] [address] SELF PAY NO INSURANCE Member Subscriber Plan / Payer (Ef fective for All Dates) Name:Suman Navas Member ID:Not on file Relation to Subscriber:Not on file Name:SUMAN NAVAS Subscriber ID:Not on file Address: [facility], [facility] [place] [address] Payer ID:Not on file Group ID:Not on file Type:Self Pay Address: [facility] MANAGED MEDICARE ADV * Guarantor: SUMAN NAVAS Account Type Relation to Patient Date of Phone Billing Address Personal/Family [address] [place], [place] [address] [address] SELF PAY NO INSURANCE Member Subscriber Plan / Payer (Ef fective for All Dates) Name:Suman Navas Member ID:Not on file Relation to Subscriber:Not on file Name:SUMAN NAVAS Subscriber ID:Not on file Address: [address] [place], [place] [address] [address] Payer ID:Not on file Group ID:Not on file Type:Self Pay Address: [facility] MANAGED MEDICARE ADV * Guarantor: SUMAN NAVAS Account Type Relation to Patient Date of Phone Billing Address Personal/Family [facility], [facility] [place] [address] SELF PAY NO INSURANCE Member Subscriber Plan / Payer (Ef fective for All Dates) Name:Suman Navas Member ID:Not on file Relation to Subscriber:Not on file Name:SUMAN NAVAS Subscriber ID:Not on file Address: [facility], [facility] [place] [address] Payer ID:Not on file Group ID:Not on file Type:Self Pay Address: [facility] MEDICARE ADV Care Teams Power Distribution Engineer Relationship Specialty Start Date End Date Danie Moreno MD [address] [place] [address] PCP - General 04/01/18
--- OUTSIDE RECORDS SUMMARY | 2024-07-14 08:54 | XMS_ITS | Clinical Summary ---
Author Organization [facility] Address [address], [address] [address] Phone Care Team Providers Care Money Market Clerk Name Role Phone Danie Moreno MD Primary Care Provider Allergies No known active allergies Medications lisinopril-hydr oCHLOROthiazide (PRINZIDE, ZESTORETIC) 20-12.5 MG Tablet Take 1 Tab by mouth daily. Active apixaban (ELIQUIS) 5 MG Tablet Take 5 mg by mouth 2 times daily. Active pantoprazole (PROTONIX) 40 MG Pack 40 mg by Per NG tube route daily. Active Albuterol Sulfate (PROAIR HFA IN) take by inhalation. Active atorvastatin (LIPITOR) 10 MG Tablet Take 10 mg by mouth daily. Active Multiple Vitamin (MULTI-VITAMIN PO) Take by mouth. Active Calcium Carbonate-Vitam in D (CALCIUM 500 + D PO) Take by mouth. Active levothyroxine (SYNTHROID) 88 MCG Tablet Take 88 mcg by mouth daily. Active metoprolol Succinate (TOPROL-XL) 100 MG TABLET SR 24 HR Take 100 mg by mouth daily. Active estradiol (ESTRACE) 0.1 MG/GM Cream 2 g by Vaginal route daily. Active Cyanocobalamin (VITAMIN B 12 PO) Take by mouth. Active VITAMIN D PO Take by mouth. Active Immunizations Immunization Administration Dates Next Due Influenza, Quadrivalent, Adjuvanted 01/07/2021 Family History Medical History Relation Name Comments Mental Disorder, Other Mother Uterine Cancer Other Relation Name Status Comments Father Raped heart rat e Mother Other Sister Alive Uterine cancer/ High blood pressure Social History Tobacco Use Types Packs/Day Years Used Date Smoking Tobacco: Never Smokeless Tobacco: Never Alcohol Use Standard Drinks/Week Comments Yes 0 (1 standard drink = 0.6 oz pur e alcohol) 2 drinks per month Comments Unknown Sex and Gender Information Value Date Recorded Sex Assigned at Not on file Legal Sex Female 3:36 PM CDT Gender Identity Not on file Sexual Orientation Not on file Last Filed Vital Signs Vital Sign Reading Time Taken Comments Blood Pressure 126/74 08/29/2021 1:54 PM CDT Pulse 106 08/29/2021 1:54 PM CDT Temperature 35.8 C (96.4 F) 08/29/2021 1:54 PM CDT Respiratory Rate 16 08/29/2021 1:54 PM CDT Oxygen Saturation 99% 08/29/2021 1:54 PM CDT Inhaled Oxygen Concentration - - Weight 70.5 kg (155 lb 6.4 oz) 08/29/2021 1:54 P M CDT Height 152.4 cm (5') 08/29/2021 1:54 PM CDT Body Mass Index 30.35 08/29/2021 1:54 PM CDT Plan of Treatment Health Maintenance Due Date Last Done Comments Hepatitis C Virus (HCV) Screening 1945 TdaP Immunization 1945 Zoster Immunization (1 of 2) 05/23/1995 Pneumococcal Immunization (50+ years) (2 of 2 - PPSV23) 12/05/2016 12/06/2015 Respiratory Syncytial Virus (RSV) Immunization (Adult) (1 - 1-dose 75+ series) 2020 Influenza Immunization (#1) 2023 11/0 07/2020, 12/16/2019, 01/17/2018, Additional history exists SARS-COV-2 Immunization ( season) 2023 07/06/2021, 12/08/2020, 05/04/2020, Additional history exists Pneumococcal Immunization Combined Discontinued 12/06/2015 Colonoscopy High Risk Discontinued 12/27/2017 Colonoscopy Discontinued 12/27/2017 Colorectal Cancer Screening Discontinued Cologuard Discontinued Hepatitis B Immunization Aged Out No longer eligible based on patient's age to complete this topic Immunochemical Fecal Occult Blood Discontinued Meningococcal Immunization (ACWY) Aged Out No longer eligible based on patient's age to complete this topic Rotavirus Immunization Aged Out No lo nger eligible based on patient's age to complete this topic Procedures Procedure Name Priority Date/Time Associated Diagnosis Comments COLONOSCOPY Routine 12/27/2017 from Last 3 Months or Most Recently Relevant to Health Maintenance Results * COLONOSCOPY (12/27/2017) Chester Salgado DO PROCEDURE/MINOR SURGICAL ORDERA BLES Final Result from Last 3 Months or Most Recently Relevant to Health Maintenance Insurance MEDICARE [facility] Care Teams Money Market Clerk Relationship Specialty Start Date End Date Danie Moreno MD PCP - General Family Medicine 12/31/17
--- OUTSIDE RECORDS SUMMARY | 2024-07-14 08:54 | XMS_ITS | Referral Summary ---
Author Organization [facility] [address] Address [address] [place] [address] Care Team Providers Care Gear Hobber Set Up Operator Name Role Phone Danie Moreno MD Primary Care Provider Sera Arana MD Unavailable Encounters Date Type Department Care Team Description 07/02/2024 Telephone [facility] Orthopaedic Surgery [address] [facility] [address] [place] [address] Gareth Mora MD 06/27/2024 Telephone [facility] Orthopaedic Surgery [address] [facility] 1[address] [place] [address] Gareth Mora MD from Last 3 Months Allergies No known active allergies Medications atorvastatin (LIPITOR) 10 mg tablet Take 1 tablet (10 mg total) by mouth daily. 30 tablet 11 8 Active levothyroxine (SYNTHROID) 75 mcg tabletIndication s:hypothyroidism Take 1 tablet (75 mcg total) by mouth manager resource before breakfast 9 Active albuterol HFA (PROVENTIL [...] tabletIndication s:Chronic diastolic CHF (congestive heart failure) ([facility]) TAKE 1 TABLET BY MOUTH DAILY 90 [...] tabletIndication s:Chronic diastolic CHF (congestive heart failure) ([facility]) TAKE 1 TABLET BY MOUTH DAILY 90 tablet 2 5 Active sacubitriL-valsa rtan (Entresto) 24-26 mg tabletIndication s:Chronic diastolic CHF (congestive heart failure) ([facility]) TAKE 1 TABLET BY MOUTH TWICE DAILY 180 tablet 2 5 Active Active Problems Problem Noted Date Diagnosed Date S/P reverse total shoulder arthroplasty, right 0 11/14/2023 Tear of right rotator cuff 11/01/2023 Chronic heart failure with preserved ejection fr action 11/14/2021 Pulmonary hypertension 11/14/2021 Hyperparathyroidism (CMS/HCC) 07/26/2018 Overview (07/26/2018): Added automatically from request for surgery [id number] Pulsatile tinnitus 06/16/2017 Hypercholesteremia 06/16/2017 BECKER (dyspnea [...] flutter Assessment & Plan (01/19/2017 1:27 PM 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 She [...] smoked tobacco 02/16/2011 022 Lumbago 02/09/2011 11/14/2021 Social History Tobacco Use Types Packs/Day Years [...] on file Legal Sex Female 3:48 AM CERTIFIED ORTHOTIST Gender Identity Female 11/29/2023 4:26 PM CDT Sexual Orientation Not on file Last Filed Vital Signs Vital Sign Reading Time Taken Comments Blood Pressure 118/60 02/21/2024 1:44 PM CERTIFIED ORTHOTIST Pulse 82 02/21/2024 1:44 PM CERTIFIED ORTHOTIST Temperature 37.2 C (99 F) 11/15/2023 8:33 AM CDT Respiratory Rate 18 11/15/2023 8:33 AM CDT Oxygen Saturation 98% 02/21/2024 1:44 PM CERTIFIED ORTHOTIST Inhaled Oxygen Concentration - - Weight 65.8 kg (145 lb) 02/21/2024 1:44 PM CERTIFIED ORTHOTIST Height 152.4 cm (5') 02/21/2024 1:44 PM CERTIFIED ORTHOTIST Body Mass Index 28.32 02/21/2024 1:44 PM CERTIFIED ORTHOTIST Plan of Treatment Not on file Medical Devices Implanted Type Area It Infrastructure Consultant Device Identifier Shelf Expiration Date Model / Serial / Lot [employer] Tornier Aequalis Perform 33mm Lateralize Reverse Shoulder +3mm [id number] - [id number] - [id number] Implanted:Qty: 1 on 11/14/2023 by Gareth Mora MD at [facility] Right: Shoulder [employer] 02/24/2028 [id number] / [id number] / [employer] Tornier Aequalis Perform 25mm Reverse Shoulder Standard Baseplate [id number] - [id number] - [id number] Implanted:Qty: 1 on 11/14/2023 by Gareth Mora MD at [facility] Right: Shoulder [employer] 03/03/2028 [id number] / [id number] / [employer] Aequalis Perform 7mm Reverse Screw Bone Sterile Latex Free [id number] - [id number] - [id number] Implanted:Qty: 1 on 11/14/2023 by Gareth Mora MD at [facility] Right: Shoulder [employer] 01/09/2028 [id number] / [id number] / [employer] Screw Glenoid Locking Reverse Aequalis Perform 5.0x26mm Titanium [id number] - [id number] Implanted:Qty: 2 on 11/14/2023 by Gareth Mora MD at [facility] Right: Shoulder [employer] [id number] / / [employer] Stem Humeral Shoulder Reverse Aequalis Perform [id number] - [id number] - [id number] Implanted:Qty: 1 on 11/14/2023 by Gareth Mora MD at [facility] Right: Shoulder [employer] 07/04/2028 [id number] / [id number] / [employer] Insert Perform 10 Deg [id number] - [id number] - [id number] Implanted:Qty: 1 on 11/14/2023 by Gareth Mora MD at [facility] Right: Shoulder [employer] 11/17/2026 [id number] / [id number] / [employer] Restrictor Bone Cement Elbow Polyethylene Aqualis 8-15mm [id number] - [id number] - [id number] Implanted:Qty: 1 on 11/14/2023 by Gareth Mora MD at [facility] Right: Shoulder [employer] [id number] 06/29/2028 [id number] / [id number] / [employer] Simplex P Radiopaque Full Dose Cement Bone Sterile [id number] - [id number] Implanted:Qty: 1 on 11/14/2023 by Gareth Mora MD at [facility] Right: Shoulder [employer] 07/02/2025 [id number] / / [id number] Procedures Procedure Name Priority Date/Time Associated Diagnosis [...] BMD of young normal adults. References: 1) Remigio, Annals of Internal Medicine 114(11): 919-923 (1990) 2) Srinivasa, Lancet 341 : 72-75 (1992) 3) Lex, Journal Bone and Mineral Research 7(6): 633-8 (1991) 4) Enoc, Journal Bone and Mineral Research 8(10):1227-33 (1992) The history and data sections of the bone mineral density scan were prepared by Velma MCGUIRE who is accredited by the International Society of Clinical Densitometry. The overall patient assessment and scan interpretation were performed by Natalya Matson M.D. who is certified by the International Society of Clinical Densitometry. 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 ADVANCE DIRECTIVE 11/14/2023 5:55 AM Gage Mercado * Full Code (Latest Code Status on File) Date Activated Date Inactivated Comments 11/14/2023 1:16 PM 11/15/2023 1:43 PM * Full Code Date Activated Date Inactivated Comments 10/18/2018 1:28 PM 10/19/2018 6:08 PM * Full Code Date Activated Date Inactivated Comments 05/14/2018 9:46 AM 05/15/2018 4:42 AM Care Teams Gear Hobber Set Up Operator Relationship Specialty Start Date End Date Danie Moreno MD PCP - General Family Practice 12/06/16 Sera Arana MD [address] [place] [address] [place] [address] Consulting Physician Sleep Medicine 05/04/22
== END 2024-07-14 08:50 | disposition home or self-care (01) ==
LOC: ANHIMG 08:50
PROVIDERS: PCP Family Medicine; Visit Provider Nurse Practitioner
DX: Z12.31 Encounter for screening mammogram for malignant neoplasm of breast (principal)
CPT/HCPCS: 77063; 77067

== ENCOUNTER 2024-08-08 11:40 | Emergency (ER) | payer MEDICARE, SELFPAY ==
[2024-08-08 11:58] VITALS: BP 158/88; PULSE 85; RESP 16; TEMP 36.5; O2SAT 98
[2024-08-08 11:58] LABS: EDUAAPPEAR Cloudy; EDUABILI 2+ (Negative); EDUABLOOD 3+ (Negative); EDUACOLOR1 Red; EDUAGLUCOSE 2+ (Negative); EDUAKETONE 1+ (Negative); EDUALEUKO 3+ (Negative); EDUANITRATE Positive (Negative); EDUAPROTEIN 3+ (Negative); EDUASPGRAVITY 1.015
--- NOTE | 2024-08-08 12:19 | ED.FEMALEGU ---
HPI - Female Genitourinary General Chief complaint: Urogenital-Female Stated complaint: UTI SYMPTOMS Time Seen by Provider: 08/08/24 11:40 Source: patient Mode of arrival: ambulatory Limitations: no limitations History of Present Illness HPI Narrative: Patient is a 79-year-old female presents with dysuria, urinary frequency, urinary urgency 2 days ago. Reports suprapubic pressure. Denies flank. Denies fever or chills. Took 1 capsule of d-mannose yesterday or sun with no improvement. Reports taking Tylenol for her chronic back pain with minimal improvement. Reports this would be her 3rd UTI this year. Last treated in May of this year with Cipro. Daughter is a nurse and has concerns Farxiga is causing the UTI; which she has been on for the past 2-3 years. MD elicited complaint: dysuria Related Data Home Medications ?Medication ?Instructions ?Recorded ?Confirmed ?Last Taken ?Type furosemide 20 mg tablet 20 mg PO QAM 12/09/21 08/08/24 Unknown History sacubitril 24 mg-valsartan 26 mg 1 tablet PO BID 12/09/21 08/08/24 Unknown History tablet (Entresto) biotin 1 gummy PO DAILY 08/20/23 08/08/24 Unknown History calcium carbonate-vitamin D3 500 1 cap PO DAILY 08/20/23 08/08/24 Unknown History mg (1,250 mg)-50 unit capsule Allergies Allergy/AdvReac Type Severity Reaction Status Date / Time No Known Allergies Allergy Verified 08/08/24 11:55 Review of Systems Review of Systems: All systems reviewed & are unremarkable except as noted in HPI and below Constitutional: Constitutional: Denies chills, Denies fever(s), Denies headache(s), Denies malaise and Denies weakness Eyes: Eyes: Denies change in vision, Denies eye discharge and Denies irritation ENT: Denies otalgia, Denies headache(s), Denies nasal congestion, Denies nasal discharge, Denies sinus pain and Denies sore throat Cardiovascular: Cardiovascular: Denies chest pain, Denies edema, Denies palpitations and Denies dyspnea Respiratory: Respiratory: Denies cough and Denies dyspnea Gastrointestinal: Gastrointestinal: Denies abdominal pain, Denies diarrhea, Denies nausea and Denies vomiting Genitourinary: Genitourinary: Reports hematuria, Reports nocturia, Reports dysuria, Denies flank pain and Reports urinary urgency Musculoskeletal: Musculoskeletal: Denies back pain and Denies numbness Integumentary/Breasts: Skin/Breast: Denies pruritus and Denies rash Neurologic: Denies headache(s), Denies numbness and Denies weakness Psychiatric: Psychiatric: Reports no additional psychiatric complaints Endocrine: Endocrine: Denies palpitations PMFSH Past Medical History Medical History Acute postoperative pain of right shoulder Colon polyp Cystocele Raynaud's disease without gangrene Chronic mid back pain Anxiety Diastolic dysfunction CHF (congestive heart failure) Scoliosis Arterial occlusive disease Thyroid disease Asthma Atrial fibrillation 12/2014 Osteopenia Hypothyroidism (acquired) CKD (chronic kidney disease) stage 3, GFR 30-59 ml/min GERD without esophagitis Upper back pain Intermittent asthma without complication Chronic atrial fibrillation Dyslipidemia Essential (primary) hypertension Hyperparathyroidism Surgical History Surgical History History of cardioversion (~05/2018) History of parathyroidectomy (~10/2018) partial 10/2018 Hx of tonsillectomy (~1952) 1952 History of tubal ligation (~2004) 2004 Family History Family History Grandparent Family history of malignant neoplasm of breast Social History Social History Social History: Caffeine- coffee Smoking status: Never smoker Second hand tobacco smoke exposure: No Alcohol intake: current Drinks per week: 1 Alcohol use details: consumes 2 hard liquor drinks a month Substance use: never Substance use type: does not use Lack of Transportation: No Lack of Food: Never True Current Housing: I Have Housing Concerned About Future Housing: No Difficulty Paying Gas/Electric Bills: No Difficulty Paying for Meds: No Currently Unemployed: No Education: Master's Degree or Higher Difficulty w/ Childcare or Family Care: No Living arrangements: with family Additional living arrangements comments: Occupation/Education: retired Gender identity (if verbalized by the patient): Female Sexual Orientation (if Verbalized by the Patient): Straight or Heterosexual Spiritual care concerns: No Agree to blood products: Yes Comments At time of signature, agree with nursing past medical, surgical, social and family history. There is no relevant family history pertinent to the presenting complaint. Exam Const: General: cooperative, healthy appearing, comfortable, no acute distress and well nourished Nutritional Appearance: well nourished Orientation/consciousness: patient oriented x3 HENMT: Head: normocephalic and atraumatic Ears: external ears normal Face/Nose/Sinus: Normal external nose present, Normal nares present and normal facial exam Face and sinus: normal facial exam Eyes: General: appearance normal, both eyes and all related structures Pupils: Equal, round and reactive pupils present EOM: EOMs intact bilaterally Neck: Neck: normal visual inspection, full ROM and supple Chest: Chest palpation & inspection: normal inspection of the chest Resp: Effort & Inspection: normal respiratory effort and able to speak in complete sentences Cardio: Rate: regular rate Rhythm: regular rhythm GI: Inspection: normal to inspection GI Palp: No abdominal tenderness and Yes Soft to palpation : General: Yes no CVA tenderness Back/Spine/Pelvis: Back: no CVA tenderness Skin: General skin exam: normal color and no rashes or lesions noted Neuro: General: patient oriented x3 and moves all extremities Cranial nerves: Yes Equal, round and reactive pupils present Extrem: General: normal to inspection and full ROM Psych: Appearance: grossly normal and well kempt Course Course Emergency Course: Patient is aware of diagnosis, understands and agrees to treatment plan. Anticipatory guidance given. Patient agrees to follow-up as directed and is aware of reasons to seek care at the emergency department. Portions of this record may have been created with voice recognition software Level of Care: Express Care Visit Vital Signs Vital signs: Vital Signs Temperature 36.5 C 08/08/24 11:58 Pulse Rate 85 08/08/24 11:58 Respiratory Rate 16 08/08/24 11:58 Blood Pressure 158/88 H 08/08/24 11:58 Pulse Oximetry 98 08/08/24 11:58 Temperature 36.5 C 08/08/24 11:58 Pulse Rate 85 08/08/24 11:58 Respiratory Rate 16 08/08/24 11:58 Blood Pressure 158/88 H 08/08/24 11:58 Pulse Oximetry 98 08/08/24 11:58 Reviewed MDM - Female Genitourinary MDM Narrative Medical decision making narrative: Exam findings and UA show probable UTI; patient is non-toxic appearing and is in no distress. No CMT, adnexal tenderness, or evidence of pelvic etiology. Patient is appropriate for outpatient treatment and follow-up. Differential Diagnosis Differential diagnosis: Likely urinary tract infection, bacterial vaginosis, trichomoniasis, cervicitis, vaginitis and cystitis Medical Records Attestation: I reviewed the patient's medical records. Lab Data Attestation: I reviewed the patient's lab results. Labs: Lab Results 08/08/24 Range/Units 11:57 POC Urine Color Red POC Urine Clarity Cloudy POC Urine pH 6.0 POC Ur Specif [place] 1.015 POC Urine Protein 3+ (Negative) POC Ur Glucose (UA) 2+ (Negative) POC Urine Ketones 1+ (Negative) POC Urine Blood 3+ (Negative) POC Urine Nitrite Positive (Negative) POC Urine Bilirubin 2+ (Negative) POC Urine Urobilinogen 1.0 POC U Leukocyte Esteras 3+ (Negative) Discharge Plan Discharge Clinical Impression: Urinary tract infection Qualifiers: Urinary tract infection type: acute cystitis Hematuria presence: with hematuria Qualified Code(s): N30.01 - Acute cystitis with hematuria Patient Disposition: Home Condition: Stable Instructions: Urinary Tract Infection in Women (ED) Additional Instructions: We will send a urine culture to the lab, based on your symptoms and urine dip we will start treatment today. If culture comes back and bacteria is not susceptible to antibiotic, your prescription may change. Your symptoms should improve within a day of starting antibiotics, but you should finish all the antibiotic pills you get. Otherwise your infection might come back Continue with increased water intake. Take Tylenol or ibuprofen as needed for pain or fever. Follow-up with primary care provider for urine recheck or see ER visit if condition worsens with high fever, nausea, vomiting, severe back pain Patient Language: British Prescriptions: New nitrofurantoin monohyd/m-cryst 100 mg capsule 100 mg PO Q12H 5 Days Qty: 10 0RF Rx Instructions: must administer with a meal/food No Action Entresto 24-26 mg tablet 1 tablet PO BID furosemide 20 mg tablet 20 mg PO QAM methocarbamol 750 mg tablet 750 mg PO TID PRN (Reason: pain) Qty: 60 1RF Calcium With Vitamin D3 500 mg(1,250mg) -50 unit Capsule 1 cap PO DAILY biotin 1 gummy PO DAILY Farxiga 10 mg tablet 10 mg PO DAILY Qty: 90 1RF albuterol sulfate [Proventil HFA] 90 mcg/actuation HFA aerosol inhaler 2 puff INHALATION Q4-6H PRN (Reason: Shortness Of Breath Or Wheezing) Qty: 3 0RF Rx Instructions: inhale 2 puff by inhalation route every 4 - 6 hours as needed atorvastatin 10 mg tablet 10 mg PO QHS Qty: 90 1RF duloxetine 30 mg capsule,delayed release(DR/EC) 30 mg PO DAILY Qty: 90 1RF levothyroxine 75 mcg tablet See Rx Instructions .ROUTE .COMPLEX Qty: 80 3RF Dose Instruction: TAKE 1 TABLET BY MOUTH DAILY Rx Instructions: TAKE 1 TABLET BY MOUTH DAILY metoprolol succinate 100 mg tablet extended release 24 hr See Rx Instructions .ROUTE .COMPLEX Qty: 90 3RF Dose Instruction: TAKE 1 TABLET BY MOUTH DAILY AT BEDTIME Rx Instructions: TAKE 1 TABLET BY MOUTH DAILY AT BEDTIME pantoprazole 20 mg tablet,delayed release (DR/EC) 20 mg PO QAM Qty: 90 1RF Eliquis 5 mg tablet 5 mg PO BID Qty: 180 1RF Follow-up/Referrals: Layton Moreno MD [Primary Care Provider] - 3 Days Time of Disposition: 12:24
== END 2024-08-08 12:35 | disposition home or self-care (01) ==
PROVIDERS: Emergency Provider Nurse Practitioner Family; PCP Family Medicine
DX: N30.01 Acute cystitis with hematuria (principal); I73.00 Raynaud's syndrome without gangrene; I13.0 Hypertensive heart and chronic kidney disease with heart failure and stage 1 through stage 4 chronic kidney disease, or unspecified chronic kidney disease; N18.30 Chronic kidney disease, stage 3 unspecified; I50.9 Heart failure, unspecified; I48.20 Chronic atrial fibrillation, unspecified; I70.90 Unspecified atherosclerosis; E03.9 Hypothyroidism, unspecified; M85.80 Other specified disorders of bone density and structure, unspecified site; K21.9 Gastro-esophageal reflux disease without esophagitis; E21.3 Hyperparathyroidism, unspecified; J45.909 Unspecified asthma, uncomplicated; Z90.89 Acquired absence of other organs
CPT/HCPCS: 81003; 87086; 99213; G0463

== ENCOUNTER 2024-10-14 08:48 | Outpatient (CLI) | payer MEDICARE, SELFPAY ==
--- OUTSIDE RECORDS SUMMARY | 2024-10-14 09:05 | XMS_ITS | Clinical Summary ---
Author Organization [facility] [address] Address [address] [place] [address] Care Team Providers Care Rn Nicu Name Role Phone Danie Moreno MD Primary Care Provider Sera Arana MD Unavailable Allergies No known active allergies Medications atorvastatin (LIPITOR) 10 mg tablet Take 1 tablet (10 mg total) by mouth daily. 30 tablet 11 8 Active levothyroxine (SYNTHROID) 75 mcg tabletIndication s:hypothyroidism Take 1 tablet (75 mcg total) by mouth spar finisher before breakfast 9 Active albuterol HFA (PROVENTIL [...] total) by mouth every morning 2 Active methocarbamoL (ROBAXIN) 750 mg tablet Take 1 tablet (750 mg total) by mouth 3 (three) times a day 90 tablet 4 Active Additional Information Patient not taking.Informant: Self, Reported on 08/22/[address] (PROTONIX) 20 mg EC tabletIndication s:reflux Take 1 tablet (20 mg total) by mouth every morning 4 Active cholecalciferol (VITAMIN D-3) 1,000 unitIndications: supplement Take 1 tablet/capsule (1,000 Units total) by mouth every morning Active acetaminophen 500 mg capsuleIndicatio ns:Pain Take 2 capsules (1,000 mg total) by mouth every 6 (six) hours 90 tablet 4 Active Additional Information Patient taking differently:1,000 mg oralAs needed, Indications: Pain, Reported on 08/22/2024 celecoxib (CeleBREX) 100 mg capsuleIndicatio ns:Pain Take 1 capsule (100 mg total) by mouth 2 (two) times a day 60 capsule 4 Active docusate sodium (COLACE) 100 mg capsuleIndicatio ns:constipation Take 1 capsule (100 mg total) by mouth 2 (two) times a day 60 capsule 4 Active Additional Information Patient not taking.Reported on 08/22/2024 dapagliflozin propanediol (Farxiga) 10 mg tabletIndication s:Chronic diastolic CHF (congestive heart failure) ([facility]) TAKE 1 TABLET BY MOUTH DAILY 90 tablet 2 5 Active sacubitriL-valsa rtan (Entresto) 24-26 mg tabletIndication s:Chronic diastolic CHF (congestive heart failure) ([facility]) TAKE 1 TABLET BY MOUTH TWICE DAILY 180 tablet 2 5 Active furosemide (LASIX) 20 mg tabletIndication s:Chronic diastolic CHF (congestive heart failure) ([facility]) Take 1 tablet (20 mg total) by mouth as needed (shortness of breath and/or swelling) 5 Active Active Problems Problem Noted Date Diagnosed Date S/P reverse total shoulder arthroplasty, right 0 11/14/2023 Tear of right rotator cuff 11/01/2023 Chronic heart failure with preserved ejection fr action 11/14/2021 Pulmonary hypertension 11/14/2021 Hyperparathyroidism (CMS/HCC) 07/26/2018 Overview (07/26/2018): Added automatically from request for surgery [id number] Pulsatile tinnitus 06/16/2017 Hypercholesteremia 06/16/2017 BECKER (dyspnea [...] flutter Assessment & Plan (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 She [...] w/ Eliquis, no bleeding. Keratosis, senilis 11/25/2014 2 Midline cystocele 01/19/2014 11/14/2021 Pleural cavity effusion 08/07/201311/03 Never smoked tobacco 02/16/2011 022 Lumbago 02/09/2011 11/14/2021 Encounters Date Type Department Care Team Description 08/22/2024 1:00 PM CDT Office Visit [facility] Cardiology [address] [place] [address] Fabi Rosas NP Persistent atrial fibrillation (HCC) (Primary Dx); Chronic diastolic CHF (congestive heart failure) (HCC) 08/12/2024 11:50 AM CDT Ancillary Procedure [facility] Orthopaedic Surgery [address] [facility] 1st [address] [place] [address] 08/12/2024 11:30 AM CDT Procedure visit [facility] Orthopaedic Surgery [address] [place] [address] 1st Floor [address] [place] [address] Mario Ortega MD Right shoulder pain, unspecified chronicity 07/17/2024 12:30 PM CDT Office Visit [facility] Orthopaedic Surgery [address] [facility] 1st Floor [address] [place] [address] Gareth Mora MD Right shoulder pain, unspecified chronicity (Primary Dx); Traumatic complete tear of right rotator cuff, initial encounter; Status post orthopedic surgery, follow-up exam 07/17/2024 12:22 PM CDT - 07/17/2024 11:59 PM CDT Hospital Encounter [facility] Radiology at [facility] Medicine [address] [place] [address] Right shoulder pain, unspecified chronicity Discharge Disposition: Discharge to home or self care from Last 3 Months Surgical History Surgery [...] skin Hypertension Hypertension Atrial fibrillation and flutter DCCV 05/2018-- Eliquis Thyroid nodule 06/19/2018 2 nodules inferi or to the left thyroid lobe that measure 1.0 cm x 0.6 cm x 0.7 cm and 0.7 cm x 0.4 cm x 0.5 cm. Primary hyperparathyroidism Hypercalcemia Osteopenia Heart disease 12/2021 Anxiety 09/2021 Asthma 2014 Clotting disorder Dysmenorrhea Sleep apnea 11/2021 GERD (gastroesophageal reflux disease) 08/2003 Cataract Tuberculosis Family History Medical History Relation Name Comments Depression Daughter 1 Eun Developmental delay Daughter 1 Eun Developmental delay Daughter 2 Eun Houser Mental illness Daughter 2 Eun Houser Atrial fibrillation Father Yo White Heart disease Father Yo White Hypertension Father Yo White Other Father oY White Breast cancer Maternal Grandmother Depression Mother Ashley White Mental illness Mother Ashley White Suicidality Mother [...] Date Smoking Tobacco: Never Smokeless Tobacco: Never Tobacco Cessation:Counseling Given: Not Answered Alcohol Use Standard Drinks/Week Comments Yes 0 [...] on file 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[employer] Gender Identity Female 11/29/2023 4:26 PM CDT Sexual Orientation Not on file Obstetrics History Last Filed Vital Signs Vital Sign Reading Time Taken Comments Blood Pressure 134/72 08/22/2024 12:57 PM CDT Pulse 82 08/22/2024 12:57 PM CDT Temperature 37.2 C (99 F) 11/15/2023 8:33 AM CDT Respiratory Rate 18 11/15/2023 8:33 AM CDT Oxygen Saturation 98% 08/22/2024 12:57 PM CDT Inhaled Oxygen Concentration - - Weight 61.7 kg (136 lb) 08/22/2024 12:57 PM CDT Height 152.4 cm (5') 08/22/2024 12:57 PM CDT Body Mass Index 26.56 08/22/2024 12:57 PM CDT Plan of Treatment Health Maintenance Due Date Last Done Comments Depression Screening 1945 Hepatitis C Screening 1945 DTaP/Tdap/Td Vaccine (1 - Tdap) 1956 Hepatitis B Screening 05/23/1963 Zoster Vaccine (1 of 2) 05/23/1995 Well Visit 65+ 2010 Osteoporosis Screening-Bone Density Scan 10/12/2021 10/13/2019, 10/04/2018 Influenza Vaccine (#1) 2024 9, 01/17/2018, 01/15/2017, Additional history exists Fall Risk Assessment 11/13/2024 11/14/2023 Pneumococcal vaccine 65+ Completed 12/06/2015, 07/04 Breast Cancer Screening-Mammogram Discontinued 019 Medical Devices Implanted Type Area Bilingual Teacher Aide Device Identifier Shelf Expiration Date Model / Serial / Lot LikeBright Parth Villaseñoralis Perform 33mm Lateralize Reverse Shoulder +3mm [id number] - [id number] - [id number] Implanted:Qty: 1 on 11/14/2023 by Gareth Mora MD at [facility] Right: Shoulder [employer] 02/24/2028 [id number] / [id number] / [employer] Tornier Aequalis Perform 25mm Reverse Shoulder Standard Baseplate Ifm470 - [id number] - [id number] Implanted:Qty: 1 on 11/14/2023 by Gareth Mora MD at [facility] Right: Shoulder [employer] 03/03/2028 [id number] / [id number] / [employer] Aequalis Perform 7mm Reverse Screw Bone Sterile Latex Free [id number] - [id number] - [id number] Implanted:Qty: 1 on 11/14/2023 by Gareth Mora MD at [facility] Right: Shoulder [employer] 01/09/2028 [id number] / [id number] / [employer] Screw Glenoid Locking Reverse Aequalis Perform 5.0x26mm Titanium Dge204 - [id number] Implanted:Qty: 2 on 11/14/2023 by Gareth Mora MD at [facility] Right: Shoulder [employer] [id number] / / [employer] Stem Humeral Shoulder Reverse Aequalis Perform [id number] - [id number] - [id number] Implanted:Qty: 1 on 11/14/2023 by Gareth Mora MD at [facility] Right: Shoulder [employer] 07/04/2028 [id number] / [id number] / [employer] Insert Perform 10 Deg Diy1166 [id number] - [id number] - [id number] Implanted:Qty: 1 on 11/14/2023 by Gareth Mora MD at [facility] Right: Shoulder [employer] 11/17/2026 [id number] / [id number] / [employer] Restrictor Bone Cement Elbow Polyethylene Aqualis 8-15mm Wtw336 - [id number] - [id number] Implanted:Qty: 1 on 11/14/2023 by Gareth Mora MD at [facility] Right: Shoulder [employer] [id number] 06/29/2028 [id number] / [id number] / [employer] Simplex P Radiopaque Full Dose Cement Bone Sterile 6191-1-010 - [id number] Implanted:Qty: 1 on 11/14/2023 by Gareth Mora MD at [facility] Right: Shoulder [employer] 07/02/2025 [id number] / / [id number] Procedures Procedure Name Priority Date/Time Associated Diagnosis Comments POCUS ASP/INJ MAJOR JOINT Schedule Routine, Read Routine (OP Routine) 08/12/2024 11:48 AM CDT Right shoulder pain, unspecified chronicity CHG US GUIDANCE NEEDLE PLACEMENT IMG S&I Routine 08/12/2024 11:30 AM CDT Right shoulder pain, unspecified chronicity NV INJECTION 1 TENDON SHEATH/LIGAMENT APONEUROSIS Routine 08/12/2024 11:30 AM CDT Right shoulder pain, unspecified chronicity XR SHOULDER RIGHT 2 OR MORE VIEWS Schedule Routine, Read Routine (OP Routine) 07/17/2024 12:30 PM CDT Right shoulder pain, unspecified chronicity DEXA AXIAL AND FOREARM BONE DENSITY SCAN Schedule Routine, Read Routine (OP Routine) 10/13/2019 1:30 PM CDT Primary hyperparathyroidism from Last 3 Months or Most Recently Relevant to Health Maintenance Results * POCUS ASP/INJ MAJOR JOINT (08/12/2024 11:48 AM CDT) Narrative [facility] - 08/12/2024 11:48 AM CDT This procedure was performed and interpreted by the provider. Please refer to the provider's procedure/OR operative note for results. us Mario Ortega MD POCUS ORDERABLES Final R esult [facility] * NV INJECTION 1 TENDON SHEATH/LIGAMENT APONEUROSIS, CHG US GUIDANCE NEEDLE PLACEMENT IMG S&I (08/12/2024 11:30 AM CDT) Narrative Mario Ortega MD - 08/12/2024 11:30 AM CDT Mario Ortega MD 08/12/2024 12:23 PM Biceps tendon injection w/ Ultrasound Guidance Performed by: Mario Ortega MD Authorized by: Gareth Mora MD Biceps Tendon Injection: Consent Given by: Patient Site marked: the procedure site was marked Timeout: prior to procedure the correct patient, procedure, and site was verified Verbal consent obtained?: Yes Supporting Documentation: Indications: Pain Procedure Details: Site: Right Biceps Tendon (conjoined tendon) Prep: patient was prepped and draped in usual sterile fashion Needle Size: 25 G Ultrasound guidance: Yes Ultrasound approach: In-plane approach Ultrasound guidance used for: Pre-procedure marking and real-time guidance Sterile ultrasound techniques: Sterile gel and sterile probe covers were used Approach: Lateral Medications: 1 mL lidocaine 10 mg/mL (1 %); 40 mg triamcinolone 40 mg/mL Patient tolerance: Patient tolerated the procedure well with no immediate complications Gareth Mora MD IN CLINIC/BEDSIDE ORD ERABLES Final Result * XR Shoulder Right 2 or More Views (07/17/2024 12:30 PM CDT) Anatomical Region Laterality Modality Upper Extremities, Shoulder Right Comp uted Radiography 07/17/2024 12:3 8 PM CDT Impressions 07/17/2024 12:38 PM CDT 1. Unchanged reverse right total shoulder arthroplasty in near-anatomic alignment. Electronically signed by: Ca Jay MD Narrative 07/17/2024 12:38 PM CDT EXAMINATION: XR SHOULDER RIGHT 2 OR MORE VIEWS HISTORY: Shoulder pain. FINDINGS: Comparison to 02/14/2024. Unchanged reverse right total shoulder arthroplasty in near-anatomic alignment. No periprosthetic fracture or component migration. Mild acromial clavicular osteoarthritis. Procedure Note Ca Jay MD - 07/17/2024 EXAMINATION: XR SHOULDER RIGHT 2 OR MORE VIEWS HISTORY: Shoulder pain. FINDINGS: Comparison to 02/14/2024. Unchanged reverse right total shoulder arthroplasty in near-anatomic alignment. No periprosthetic fracture or component migration. Mild acromial clavicular osteoarthritis. IMPRESSION: 1. Unchanged reverse right total shoulder arthroplasty in near-anatomic alignment. Electronically signed by: Ca Jay MD us Gareth Mora MD IMG XR PROCEDURES Fin al Result * Dexa Axial and Forearm Bone Density Scan (10/13/2019 1:30 PM CDT) Anatomical Region Laterality Modality Wrist, Body N/A Radiographic Becki ging Narrative 10/14/2019 8:59 AM CDT Patient Name: Lena West Date of : 1945 Date of scan: 10/13/2019 Bone mineral density was performed on a HoloGlympse Discovery Densitometer. Machine Cross-calibration and Precision studies [...] Srinivasa, Lancet 341 : 72-75 (1992) 3) Black, [...] by the International Society of Clinical Densitometry. [id number] Khari Keating MD IMG DXA PROCEDURES Evy l Result from Last 3 Months or Most Recently Relevant to Health Maintenance Insurance [facility]IC[facility] Address: [address] [address] [place] [address] * Guarantor: Lena West Account Type Relation to Patient Date of Phone Billing Address Personal/Family Self 1945 [address] [place] [address] [facility] MEDICARE [facility] Address: [address] [address] [place] [address] [facility]ICARE [facility] Address: [address] [address] [place] [address] Advance Directives For more information, please contact: [phone] Documents on File Type Date Recorded 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
--- OUTSIDE RECORDS SUMMARY | 2024-10-14 09:05 | XMS_ITS | Patient Health Record ---
Author Organization [facility] [employer] [facility] Address [address] [place] [address] Care Team Providers Care Industrial Design Engineer Name Role Phone Danie Moreno MD Primary Care Provider Unavailable Eun Guardado Unavailable [phone] Reason For Referral No Information Medications Medication SIG (Take, Route, Frequency, Duration) Notes Start Date End Date Status Atorvastatin Calcium 10 MG Oral 02/20/2023 Active Entresto 24-26 MG Oral 02/20/2023 A ctive Levothyroxine Sodium 75 MCG Oral 02/20/2023 Active Amitriptyline HCl 50 MG Oral 02/20/2023 Active Lisinopril-hydroCHLOROthiazi de 20-12.5 MG Oral 02/20/2023 Active ProAir HFA 108 (90 Base) MCG/ACT Inhalation 02/20/2023 Active hydrOXYzine HCl 25 MG Oral 02/20/2023 Active Furosemide 20 MG Oral 02/20/2023 Ac tive Metoprolol Succinate ER 100 MG Oral 02/20/2023 Active Pantoprazole Sodium 20 MG Oral 02/20/2023 Active DULoxetine HCl 30 MG Oral 02/20/2023 Active Eliquis 5 MG Oral 02/20/2023 Active Farxiga 10 MG Oral 02/20/2023 Activ e Immunizations Vaccine Route Administration Date Status Comme nts Pfizer Biontech Covid-19 Vac cine 2nd dose Unknown 04/12/2020 Administered Pfizer Biontech Covid-19 Vac cine 2nd dose Unknown 05/04/2020 Administered Pfizer Biontech Covid-19 Vac cine 2nd dose Unknown 12/08/2020 Administered Pfizer-Biontech Covid-19 Vac cine 1st dose Unknown 07/06/2021 Administered Social History Sex Assigned At : Social History Observation Description Sex Assigned At Female Plan Of Treatment No Information Insurance Providers Payer Name Payer Address Payer Phone Subscriber Number Group Number Insured Name Patient Relationship to Insured Coverage Start Date Coverage End Date [employer] Medicare Replacement/ Advantage - P[place] [address] [address] [place] [address] [id number] MIRTA NAVAS Self - patient is the insured Medical (General) History Surgical History Surgery Date(Month/Year) Any surgical history Tonsilectomy/adenoids 03/05/1952
--- OUTSIDE RECORDS SUMMARY | 2024-10-14 09:05 | XMS_ITS | Clinical Summary ---
Author Organization [facility] Address [address] [place] [address] Phone Care Team Providers Care Hop Worker Name Role Phone Danie Moreno MD Primary [...] IN THE MORNING 0 Active vit B1 [id number] mg Tablet Take by mouth. Activ e [...] Comments Blood Pressure 118/76 02/18/2021 8:46 AM WORKFORCE MANAGER Pulse - - Temperature - - Respiratory Rate - - Oxygen Saturation - - Inhaled Oxygen Concentration - - Weight 68.4 kg (150 lb 12.8 oz) 02/18/2021 8:46 AM WORKFORCE MANAGER Height 150.9 cm (4' 11.4) 02/18/2021 8:46 AM CS T Body Mass Index 30.05 02/18/2021 8:46 AM WORKFORCE MANAGER Plan of Treatment Health Maintenance Due Date Last Done Comments DTAP/TDAP/TD VACCINES (1 - Tdap) 1964 PNEUMOCOCCAL VACCINE 50+ YEARS (1 of 1 - PCV) 05/22/18 96 ZOSTER VACCINE (1 of 2) 05/23/1995 OSTEOPOROSIS SCREENING 2010 RSV VACCINE (60+ or ) (1 - 1-dose 75+ series) 2020 INFLUENZA VACCINE (#1) 2024 12/16/2019 Colorectal Cancer Screening Discontinued FIT/FOBT Q 1 year Discontinued 02/05/2019 COLORECTAL SCREENING Discontinued FIT-DNA Q 3 years Discontinued Flex Sig/CT Colonography Q 5 years Discontinued Procedures Procedure Name Priority Date/Time Associated Diagnosis Comments POC OCCULT BLOOD, IMMUNO, QUAL, STOOL Routine 02/05/2019 12:07 PM WORKFORCE MANAGER Encounter for screening for malignant neoplasm of rectum from Last 3 Months or Most Recently Relevant to Health Maintenance Results * POC OCCULT BLOOD, IMMUNO, QUAL, STOOL (02/05/2019 12:07 PM WORKFORCE MANAGER) OCCULT BLOOD, IMMUNOASSAY POC Negative Negative [facility] MANAGER [address] INTERNAL KIT QC Pass Pass [facility] MANAGER [address] KIT LOT NUMBER POC [id number] [facility] MANAGER [address] KIT EXPIRATION DATE POC [id number] [facility] MANAGER [address] Stool STOOL SPECIMEN / Unknown 02/05/2019 12:07 PM WORKFORCE MANAGER Caprice Carr MD POINT OF CARE TESTING Evy hernandez Result [facility] MANAGER [address] CLIA# [id number] [address] [facility] [address] [place] [address] from Last 3 Months or Most Recently Relevant to Health Maintenance Insurance [facility] [id number] Care Teams Hop Worker Relationship Specialty Start Date End Date Danie Moreno MD [address] [place] [address] PCP - General Family Practice 02/03/19
--- OUTSIDE RECORDS SUMMARY | 2024-10-14 09:05 | XMS_ITS | Continuity of Care Document ---
Author Organization [facility] Address [address] [place] [address] [address] [place] [address] Phone Care Team Providers Care Oracle Bpm Consultant Name Role Phone Saba Garcia Unavailable Unavailable Advance Directives Directive Yes / No Effective Date File Name No Information Encounters Encounter Description Practice Location Reason(s) For Visit Diagnoses Date Provider Providers Copied on Encounter [facility], [address], [place], [place], [id number], [place] tel:[phone] [facility] No Information [address]. [address] , [address], [place], [address], [place]. tel:[phone] Family History Family Member Type Diagnosis Age At Onset No Information Payers Payer name Insurance type Covered libertarian ID Authoriza tion(s) No Information Social History [...]
--- OUTSIDE RECORDS SUMMARY | 2024-10-14 09:05 | XMS_ITS | Clinical Summary ---
Author Organization [facility] Address [address] [place], [address] [address] Phone Care Team Providers Care Orthotic Practitioner Name Role Phone Danie Moreno MD Primary [...] Immunization (50+ years) (2 of 2 - PCV20 or PCV21) 12/05/2016 12/06/2015 Respiratory Syncytial Virus (RSV) Immunization (Adult) (1 - 1-dose 75+ series) 2020 SARS-COV-2 Immunization ( - season) 2023 07/06/2021, 12/08/2020, 05/04/2020, Additional history exists Influenza Immunization (#1) 11/03/20240 07/2020, 12/16/2019, 01/17/2018, Additional history exists Pneumococcal Immunization Combined Discontinued 12/06/2015 Colonoscopy Discontinued 12/27/2017 Colorectal Cancer Screening Discontinued Cologuard Discontinued Hepatitis B Immunization Aged Out No longer eligible based on patient's age to complete this topic Human Papillomavirus (HPV) Immunization Aged Out No longer eligible based [...] Recently Relevant to Health Maintenance Insurance MEDICARE [facility] Care Teams Orthotic Practitioner Relationship Specialty Start Date End Date Danie Moreno MD PCP - General Family Medicine 12/31/17
--- OUTSIDE RECORDS SUMMARY | 2024-10-14 09:05 | XMS_ITS | Clinical Summary ---
Author Organization [facility] Address [address] [place] [address] Care Team Providers Care Septic Technician Name Role Phone Danie Moreno MD Primary Care Provider Source Comments [facility],non-owned Affiliates and Associated Physician Practices is amultiple site organization consisting of ambulatory clinics and hospital sitesin [place], [place], [place] and [place]. This disclosure is being madepursuant to the Care Everywhere program and may not contain all information available regarding this patient. Last updated 17.[facility] Allergies No known active allergies Immunizations Immunization Administration Dates Next Due INFLUENZA VACCINE, HIGH-DOSE , QUADR. 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 Gender Identity Not on file Sexual [...] MEDICARE AWV CALENDAR YEAR 2024 INFLUENZA VACCINE (#1) 2024 12/16/2019 BONE DENSITY TESTING Completed 10/13/2019 HEPATITIS B [...] complete this topic Insurance MEDICARE [employer] MEDICARE [facility] MEDICARE [facility] MANAGED MEDICARE ADV * Guarantor: SUMAN NAVAS Account Type Relation to Patient Date of Phone Billing Address Personal/Family [facility] [place] [address] SELF PAY NO INSURANCE Member Subscriber Plan / Payer (Ef fective for All Dates) Name:Suman Navas Member ID:Not on file Relation to Subscriber:Not on file Name:SUMAN NAVAS Subscriber ID:Not on file [facility] [place] [address] Payer ID:Not on file Group ID:Not on file Type:Self Pay Address: [facility] MANAGED MEDICARE ADV * Guarantor: SUMAN NAVAS Account Type Relation to Patient Date of Phone Billing Address Personal/Family [address] [place], [place] [address] [address] SELF PAY NO INSURANCE Member Subscriber Plan / Payer (Ef fective for All Dates) Name:Suman Navas Member ID:Not on file Relation to Subscriber:Not on file Name:SUMAN NAVAS Subscriber ID:Not on file Address: [address] [place], [place] [address] [phone] Payer ID:Not on file Group ID:Not on file Type:Self Pay Address: [facility] MANAGED MEDICARE ADV * Guarantor: SUMAN NAVAS Account Type Relation to Patient Date of Phone Billing Address [facility] [place] [address] SELF PAY NO INSURANCE Member Subscriber Plan / Payer (Ef fective for All Dates) Name:Suman Navas Member ID:Not on file Relation to Subscriber:Not on file Name:SUMAN NAVAS Subscriber ID:Not on file Address: [address] [place], [place] [address] [address] Payer ID:Not on file Group ID:Not on file Type:Self Pay Address: [facility] MANAGED MEDICARE ADV Care Teams Septic Technician Relationship Specialty Start Date End Date Danie Moreno MD [address] [place] [address] PCP - General 04/01/18
[2024-10-14 13:27] LABS: Hematocrit 46.0 % (37.0-47.0); Hemoglobin 14.6 g/dL (12.0-15.0); Immature Granulocyte Percent A 0.3 % (0-0.5); Lymphocytes Absolute Auto 1.38 K/mm3 (0.9-3.2); Mean Corpuscular HGB Conc 31.7 g/dl (32-36); Mean Corpuscular Hemoglobin 30.2 pg (26-34); Mean Corpuscular Volume 95.2 fl (80-100); Nucleated Red Blood Cells Absolute Auto 0.000 K/mm3 (0.0-0.012); Nucleated Red Blood Cells Perc 0.0 % (0.0-0.2); Platelet Count Result 263 k/mm3 (150-375); Red Blood Count 4.83 M/mm3 (4.2-5.4); White Blood Count 5.9 K/mm3 (4.5-10.0)
[2024-10-14 13:37] LABS: Alanine Aminotransferase 24 U/L (6-35); Albumin Level 4.1 g/dL (3.5-5.1); Alkaline Phosphatase 104 U/L (38-126); Anion Gap 5 mmol/L (4-12); Aspartate Amino Transferase 43 U/L (14-36); Bilirubin,Total 0.7 mg/dL (0.2-1.3); Blood Urea Nitrogen 23 mg/dL (7-17); Calcium 10.3 mg/dL (8.4-10.2); Carbon Dioxide 30 mmol/L (22-30); Chloride 105 mmol/L (98-107); Cholesterol 153 mg/dL (0-200); Estimated Glomerular Filt Rate 48; Glucose 89 mg/dL (65-110); HDL Direct 54 mg/dL; Magnesium 2.5 mg/dL (1.6-2.3); Potassium 4.7 mmol/L (3.4-5.0); Sodium 140 mmol/L (137-145); Total Protein 7.8 g/dL (6.3-8.2); Triglycerides 96 mg/dL (<150)
[2024-10-14 14:16] LABS: Thyroid Stimulating Hormone Reflex 3.260 uIU/mL (0.465-4.68)
[2024-10-14 14:34] LABS: Hemoglobin A1C 5.6 % (<5.7); Vitamin B12 431.0 pg/mL (239-931)
== END 2024-10-14 08:49 | disposition home or self-care (01) ==
LOC: ANHGOSHLAB 08:48
PROVIDERS: PCP Family Medicine; Visit Provider Nurse Practitioner Family
DX: E21.3 Hyperparathyroidism, unspecified (principal); I10 Essential (primary) hypertension; E55.9 Vitamin D deficiency, unspecified; R73.9 Hyperglycemia, unspecified
CPT/HCPCS: 36415; 80053; 80061; 82306; 82607; 83036; 83735; 84443; 85025

== ENCOUNTER 2024-10-21 09:16 | Outpatient (CLI) | payer MEDICARE, SELFPAY ==
--- OUTSIDE RECORDS SUMMARY | 2000-10-01 10:00 | XMS_ITS | Continuity of Care Document ---
Author Organization [facility] Address [id number] [place] [address] [address] [place] [address] Phone Care Team Providers Care Manager Facility Name Role Phone Saba Garcia Unavailable Unavailable Advance Directives Directive Yes / No Effective Date File Name No Information Encounters Encounter Description Practice Location Reason(s) For Visit Diagnoses Date Provider Providers Copied on Encounter [facility], [address], [place], [place], [id number], [place] tel:[phone] [facility] No Information [address] Radha Walter. [address] , [address], [place], [address], [place]. tel:[phone] Family History Family Member Type Diagnosis Age [...]
--- OUTSIDE RECORDS SUMMARY | 2024-10-21 09:38 | XMS_ITS | Clinical Summary ---
Author Organization [facility] Address [address] [place], [address] [address] Phone Care Team Providers Care Professor Of Physical Education Name Role Phone Danie Moreno MD Primary [...] Recently Relevant to Health Maintenance Insurance MEDICARE [facility] Care Teams Professor Of Physical Education Relationship Specialty Start Date End Date Danie Moreno MD PCP - General Family Medicine 12/31/17
--- OUTSIDE RECORDS SUMMARY | 2024-10-21 09:38 | XMS_ITS | Clinical Summary ---
Author Organization [facility] Address [address] [place] [address] Care Team Providers Care Staff Psychologist Name Role Phone Danie Moreno MD Primary Care Provider Source Comments [facility],non-owned Affiliates and Associated Physician Practices is amultiple site organization consisting of ambulatory clinics and hospital sitesin [place], [place], [place] and [place]. This disclosure is being madepursuant to the Care Everywhere program and may not contain all information available regarding this patient. Last updated 17.[facility] Allergies No known active allergies Immunizations Immunization Administration Dates Next Due INFLUENZA VACCINE, HIGH-DOSE , QUADR. 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 Gender Identity Not on file Sexual Orientation [...] complete this topic Insurance MEDICARE [employer] MEDICARE PENDING SALE TO [facility] Address: [address] [place] [address] MEDICARE [facility] MANAGED MEDICARE ADV * Guarantor: SUMAN NAVAS Account Type Relation to Patient Date of Phone Billing Address Personal/Family [facility] [place] [address] SELF PAY NO INSURANCE Member Subscriber Plan / Payer (Ef fective for All Dates) Name:Suman Navas Member ID:Not on file Relation to Subscriber:Not on file Name:SUMAN NAVAS Subscriber ID:Not on file [facility] [place] [address] Payer ID:Not on file Group ID:Not on file Type:Self Pay Address: [facility] MANAGED MEDICARE ADV * Guarantor: SUMAN NAVAS Account Type Relation to Patient Date of Phone Billing Address Personal/Family [address] [place], [place] [address] [address] SELF PAY NO INSURANCE Member Subscriber Plan / Payer (Ef fective for All Dates) Name:Suman Navas Member ID:Not on file Relation to Subscriber:Not on file Name:SUMAN NAVAS Subscriber ID:Not on file Address: [address] [place], [place] [address] [phone] Payer ID:Not on file Group ID:Not on file Type:Self Pay Address: [facility] MANAGED MEDICARE ADV * Guarantor: SUMAN NAVAS Account Type Relation to Patient Date of Phone Billing Address Personal/Family [facility] [place] [address] SELF PAY NO INSURANCE Member Subscriber Plan / Payer (Ef fective for All Dates) Name:Suman Navas Member ID:Not on file Relation to Subscriber:Not on file Name:SUMAN NAVAS Subscriber ID:Not on file Address: [address] [place], [place] [address] [address] Payer ID:Not on file Group ID:Not on file Type:Self Pay Address: [facility] MANAGED MEDICARE ADV Care Teams Staff Psychologist Relationship Specialty Start Date End Date Danie Moreno MD [address] [place] [address] PCP - General 04/01/18
--- OUTSIDE RECORDS SUMMARY | 2024-10-21 09:38 | XMS_ITS | Clinical Summary ---
Author Organization [facility] Address [address] [place] [address] Phone Care Team Providers Care Celery Tier Name Role Phone Danie Moreno MD Primary [...] IN THE MORNING 0 Active vit B1 [id number] mg Tablet Take by mouth. Activ e [...] Comments Blood Pressure 118/76 02/18/2021 8:46 AM CUPOLA MAN Pulse - - Temperature - - Respiratory Rate - - Oxygen Saturation - - Inhaled Oxygen Concentration - - Weight 68.4 kg (150 lb 12.8 oz) 02/18/2021 8:46 AM CUPOLA MAN Height 150.9 cm (4' 11.4) 02/18/2021 8:46 AM CS T Body Mass Index 30.05 02/18/2021 8:46 AM CUPOLA MAN Plan of Treatment Health Maintenance Due Date [...] IMMUNO, QUAL, STOOL Routine 02/05/2019 12:07 PM CUPOLA MAN Encounter for screening for malignant neoplasm of rectum from Last 3 Months or Most Recently Relevant to Health Maintenance Results * POC OCCULT BLOOD, IMMUNO, QUAL, STOOL (02/05/2019 12:07 PM CUPOLA MAN) OCCULT BLOOD, IMMUNOASSAY POC Negative Negative [facility] MACH[employer] TENDER TOWER A [address] INTERNAL KIT QC Pass Pass [facility] SHREDDING MACHINE TENDER TOWER A [address] KIT LOT NUMBER POC [id number] [facility] [employer] T[employer] T[employer] A [address] KIT EXPIRATION DATE POC [id number] [facility] [employer] T[employer] A [address] Stool STOOL SPECIMEN / Unknown 02/05/2019 12:07 PM CUPOLA MAN Caprice Carr MD POINT OF CARE TESTING Evy hernandez Result [facility] [employer] [facility] [address] CLIA# [id number] [address] [facility] [address] [place] [address] from Last 3 Months or Most Recently Relevant to Health Maintenance Insurance [facility] [id number] Care Teams Celery Tier Relationship Specialty Start Date End Date Danie Moreno MD [address] [place] [address] PCP - General Family Practice 02/03/19
--- OUTSIDE RECORDS SUMMARY | 2024-10-21 09:38 | XMS_ITS | Clinical Summary ---
Author Organization [facility] [address] Address [address] [place] [address] Care Team Providers Care Litigation Legal Assistant Name Role Phone Danie Moreno MD Primary Care Provider Sera Arana MD Unavailable Allergies No known active allergies Medications atorvastatin (LIPITOR) 10 mg tablet Take 1 tablet (10 mg total) by mouth daily. 30 tablet 11 08/21/19 18 Active levothyroxine (SYNTHROID) 75 mcg tabletIndicatio ns:hypothyroidi sm Take 1 tablet (75 mcg total) by mouth speeder hand before breakfast 10/04/19 19 Active albuterol HFA (PROVENTIL HFA,VENTOLIN HFA,PROAIR HFA) 90 mcg/actuation inhalerIndicati ons:Acute Asthma Attack Inhale 2 puffs every 6 (six) hours as needed for wheezing Active metoprolol XL (TOPROL-XL) 100 mg 24 hr tabletIndicatio ns:Atrial Arrhythmia,hype rtension Take 1 tablet (100 mg total) by mouth nightly 90 tablet 3 10/31/19 19 Active apixaban (Eliquis) 5 mg tabletIndicatio ns:atrial fibrillation Take 1 tablet (5 mg total) by mouth 2 (two) times a day 11/11/19 20 Active DULoxetine 30 mg capsule, delayed rel sprinkleIndicat ions:Generalize d Anxiety Disorder Take 1 capsule (30 mg total) by mouth every morning 10/25/19 22 Active methocarbamoL (ROBAXIN) 750 mg tablet Take 1 tablet (750 mg total) by mouth 3 (three) times a day 90 tablet 10/03/19 24 Active Additional Information Patient not taking.Informant: Self, Reported on 08/22/[address] (PROTONIX) 20 mg EC tabletIndicatio ns:reflux Take 1 tablet (20 mg total) by mouth every morning 08/03/19 24 Active cholecalciferol (VITAMIN D-3) 1,000 unitIndications :supplement Take 1 tablet/capsule (1,000 Units total) by mouth every morning Active acetaminophen 500 mg capsuleIndicati ons:Pain Take 2 capsules (1,000 mg total) by mouth every 6 (six) hours 90 tablet 11/15/19 24 Active Additional Information Patient taking differently:1,000 mg oralAs needed, Indications: Pain, Reported on 08/22/2024 celecoxib (CeleBREX) 100 mg capsuleIndicati ons:Pain Take 1 capsule (100 mg total) by mouth 2 (two) times a day 60 capsule 11/15/19 24 Active docusate sodium (COLACE) 100 mg capsuleIndicati ons:constipatio n Take 1 capsule (100 mg total) by mouth 2 (two) times a day 60 capsule 11/15/19 24 Active Additional Information Patient not taking.Reported on 08/22/2024 dapagliflozin propanediol (Farxiga) 10 mg tabletIndicatio ns:Chronic diastolic CHF (congestive heart failure) (HCC) TAKE 1 TABLET BY MOUTH DAILY 90 tablet 2 05/30/19 25 Active sacubitriL-vals destiny (Entresto) 24-26 mg tabletIndicatio ns:Chronic diastolic CHF (congestive heart failure) (HCC) TAKE 1 TABLET BY MOUTH TWICE DAILY 180 tablet 2 05/30/19 25 Active furosemide (LASIX) 20 mg tabletIndicatio ns:Chronic diastolic CHF (congestive heart failure) (HCC) TAKE 1 TABLET BY MOUTH DAILY 90 tablet 3 10/21/19 25 Active furosemide (LASIX) 20 mg tabletIndicatio ns:Chronic diastolic CHF (congestive heart failure) (HCC) Take 1 tablet (20 mg total) by mouth as needed (shortness of breath and/or swelling) 08/23/19 25 025 Discontinued Active Problems Problem Noted Date Diagnosed Date S/P reverse total shoulder arthroplasty, right 0 11/14/2023 Tear of right rotator cuff 11/01/2023 Chronic heart failure with preserved ejection fr action 11/14/2021 Pulmonary hypertension 11/14/2021 Hyperparathyroidism (CMS/HCC) 07/26/2018 Overview (07/26/2018): Added automatically from request for surgery [id number] Pulsatile tinnitus 06/16/2017 Hypercholesteremia 06/16/2017 BECKER (dyspnea [...] flutter Assessment & Plan (01/19/2017 1:27 PM PUNCH PRESS OPERATOR HELPER): We discussed options for management today. She [...] Description 08/22/2024 1:00 PM CDT Office Visit [facility] [address] [place] [address] Fabi Rosas NP Persistent atrial fibrillation (HCC) (Primary Dx); Chronic diastolic CHF (congestive heart failure) (HCC) 08/12/2024 11:50 AM CDT Ancillary Procedure [facility] [address] [place] [address] 08/12/2024 11:30 AM CDT Procedure visit [facility] Orthopa[facility] Surgery [address] [place] [address] Mario Ortega MD Right shoulder pain, unspecified chronicity from Last 3 Months Surgical History Surgery [...] White Hypertension Father Yo White Other Father Yo White Breast cancer Maternal Grandmother Depression Mother [...] on file Legal Sex Female 3:48 AM PUNCH PRESS OPERATOR HELPER Gender Identity Female 11/29/2023 4:26 PM CDT [...] Discontinued 019 Medical Devices Implanted Type Area Motor Grader Rough Grade Device Identifier Shelf Expiration Date Model / Serial / Lot [employer] Tornier Aequalis Perform 33mm Lateralize Reverse Shoulder +3mm [id number] - [id number] - [id number] Implanted:Qty: 1 on 11/14/2023 by Gareth Mora MD at [facility] Right: Shoulder [employer] 02/24/2028 [id number] / [id number] / [facility] [employer] Inc Tornier Aequalis Perform 25mm Reverse Shoulder Standard Baseplate [id number] - [id number] - [id number] Implanted:Qty: 1 on 11/14/2023 by Gareth Mora MD at [facility] Right: Shoulder [facility] [employer] 03/03/2028 [id number] / [id number] / [facility] [employer] Aequalis Perform 7mm Reverse Screw Bone Sterile Latex Free [id number] - [id number] - [id number] Implanted:Qty: 1 on 11/14/2023 by Gareth Mora MD at [facility] Right: Shoulder [employer] 01/09/2028 [id number] / [id number] / [employer] Screw Glenoid Locking Reverse Aequalis Perform 5.0x26mm Titanium Ruq039 - [id number] Implanted:Qty: 2 on 11/14/2023 by Gareth Mora MD at [facility] Right: Shoulder [facility] [employer] [id number] / / [employer] Stem Humeral Shoulder Reverse Aequalis Perform Dwx1pl - [id number] - [id number] Implanted:Qty: 1 on 11/14/2023 by Gareth Mora MD at [facility] Right: Shoulder [employer] 07/04/2028 [id number] / [id number] / [employer] Crowd Vision Insert Perform 10 Deg [id number] - [id number] - [id number] Implanted:Qty: 1 on 11/14/2023 by Gareth Mora MD at [facility] Right: Shoulder [employer] 11/17/2026 [id number] / [id number] / [facility] Medical Technology Crowd Vision Restrictor Bone Cement Elbow Polyethylene Aqualis 8-15mm [id number] - [id number] - [id number] Implanted:Qty: 1 on 11/14/2023 by Gareth Mora MD at [facility] Right: Shoulder [facility] [employer] [id number] 06/29/2028 [id number] / [id number] / [employer] Simplex P Radiopaque Full Dose Cement Bone Sterile 6191-1-010 - [id number] Implanted:Qty: 1 on 11/14/2023 by Gareth Mora MD at [facility] Right: Shoulder [employer] 07/02/2025 [id number] 0 / / [id number] Procedures Procedure Name Priority Date/Time Associated Diagnosis Comments POCUS ASP/INJ MAJOR JOINT Schedule Routine, Read Routine (OP Routine) 08/12/2024 11:48 AM CDT Right shoulder pain, unspecified chronicity CHG US GUIDANCE NEEDLE PLACEMENT IMG S&I Routine 08/12/2024 11:30 AM CDT Right shoulder pain, unspecified chronicity IN INJECTION 1 TENDON SHEATH/LIGAMENT APONEUROSIS Routine 08/12/2024 11:30 AM CDT Right shoulder pain, unspecified chronicity DEXA [...] POCUS ORDERABLES Final R esult RAD_PACS_POCUS_[facility] * IN INJECTION 1 TENDON SHEATH/LIGAMENT APONEUROSIS, CHG US [...] the procedure well with no immediate complications us Gareth Mora MD IN CLINIC/BEDSIDE ORD ERABLES Final Result * Dexa Axial and Forearm Bone Density Scan (10/13/2019 1:30 PM CDT) Anatomical Region Laterality Modality Wrist, Body N/A Radiographic Becki ging Narrative 10/14/2019 8:59 AM CDT Patient Name: Lena West Date of : 1945 Date of scan: 10/13/2019 Bone mineral density was performed on a HoloTripwire Discovery Densitometer. Machine Cross-calibration and Precision studies [...] (1990) 2) Bernabe, Lancet 341 : 72-75 (1993) 3) Lex, Journal Bone and Mineral Research [...] by the International Society of Clinical Densitometry. [id number] Khari Keating MD IMG DXA PROCEDURES Evy l Result from Last 3 Months or Most Recently Relevant to Health Maintenance Insurance [employer] [facility] MEDICARE ADVANTAGE UHC [place]IC[place] [address] UHC MEDICARE ADVANTAGE Advance Directives For more information, please contact: [phone] Documents on File Type Date Recorded Patient Women'S Soccer Coach Expl anation ADVANCE DIRECTIVE 11/14/2023 5:55 AM Gage Mercado * Full Code (Latest Code Status on File) Date Activated Date Inactivated Comments 11/14/2023 1:16 PM 11/15/2023 1:43 PM * Full Code Date Activated Date Inactivated Comments 10/18/2018 1:28 PM 10/19/2018 6:08 PM * Full Code Date Activated Date Inactivated Comments 05/14/2018 9:46 AM 05/15/2018 4:42 AM Care Teams Litigation Legal Assistant Relationship Specialty Start Date End Date Danie Moreno MD PCP - General Family Practice 12/06/16 Sera Arana MD [address] [place] [address] [place] [address] Consulting Physician Sleep Medicine 05/04/22
--- OUTSIDE RECORDS SUMMARY | 2024-10-21 09:38 | XMS_ITS | Patient Health Record ---
Author Organization [facility] Address [address] [place] [address] Care Team Providers Care Logging Engineer Name Role Phone Danie Moreno MD Primary Care Provider Unavailable Eun Guardado Unavailable [phone] Reason For Referral No Information Medications Medication SIG (Take, Route, Frequency, Duration) Notes Start Date End Date Status Atorvastatin Calcium 10 MG Tablet Oral 02/20/2023 Active Entresto 24-26 MG Tablet Oral 02/20/2023 Active Levothyroxine Sodium 75 MCG Tablet Oral 02/20/2023 Active Amitriptyline HCl 50 MG Tablet Oral 02/20/2023 Active Lisinopril-hydroCHLOROthiazi de 20-12.5 MG Tablet Oral 02/20/2023 Active ProAir HFA 108 (90 Base) MCG/ACT Aerosol Solution Inhalation 02/20/2023 Act torrey hydrOXYzine HCl 25 MG Tablet Oral 02/20/2023 Active Furosemide 20 MG Tablet Oral 02/20/2023 Active Metoprolol Succinate ER 100 MG Tablet Extended Release 24 Hour Oral 02/20/2023 Active Pantoprazole Sodium 20 MG Tablet Delayed Release Oral 02/20/2023 Activ e DULoxetine HCl 30 MG Capsule Delayed Release Particles Oral 02/20/2023 Ac tive Eliquis 5 MG Tablet Oral 02/20/2023 Active Farxiga 10 MG Tablet Oral 02/20/2023 Active Immunizations Vaccine Route Administration Date Status Comme nts Pfizer Biontech Covid-19 Vac cine 2nd dose Unknown 04/12/2020 Administered Pfizer Biontech Covid-19 Vac cine 2nd dose Unknown 05/04/2020 Administered Pfizer Biontech Covid-19 Vac cine 2nd dose Unknown 12/08/2020 Administered Pfizer-Biontech Covid-19 Vac cine 1st dose Unknown 07/06/2021 Administered Social History Sex Assigned At : Social History Observation Description Sex Assigned At Female Social History Additional Details Category Social Info Options Details Migrated Social History Migrated Social History Alcohol Intake: Occasional 10/27/2021,Tobacco Years: Never smoker 10/27/2021 Plan Of Treatment No Information Insurance Providers Payer Name Payer Address Payer Phone Subscriber Number Group Number Insured Name Patient Relationship to Insured Coverage Start Date Coverage End Date [employer] Medicare Replacement/ Advantage - Ppo [address] [address] [place] [address] [id number] MIRTA NAVAS Self - patient is the insured Medical (General) History Surgical History Surgery Date(Month/Year) Any surgical history Tonsilectomy/adenoids 03/05/1952
--- NOTE | 2024-11-12 09:51 | WPDSLEEPSTUD ---
Sleep Study Date of Study: 10/21/24 Ordering Provider: DARIN Hollins Interpreting Physician: Nancy Burgos MD Sleep Study Type: Polysomnogram Height: 1.52 m Weight: 61.235 kg Body Mass Index: 26.4 Neck Circumference (inches): 12.25 [place]: 5 PMFSH Past Medical History Medical History Acute postoperative pain of right shoulder Colon polyp Cystocele Raynaud's disease without gangrene Chronic mid back pain Anxiety Diastolic dysfunction CHF (congestive heart failure) Scoliosis Arterial occlusive disease Thyroid disease Asthma Atrial fibrillation 12/2014 Osteopenia Hypothyroidism (acquired) CKD (chronic kidney disease) stage 3, GFR 30-59 ml/min GERD without esophagitis Upper back pain Intermittent asthma without complication Chronic atrial fibrillation Dyslipidemia Essential (primary) hypertension Hyperparathyroidism Surgical History Surgical History History of total replacement of right shoulder joint (~11/14/23) History of cardioversion (~05/2018) History of parathyroidectomy (~10/2018) partial 10/2018 Hx of tonsillectomy (~195) 195 History of tubal ligation (~2004) 2004 Family History Family History Grandparent Family history of malignant neoplasm of breast Social History Social History Social History: Caffeine- coffee Smoking status: Never smoker Second hand tobacco smoke exposure: No Alcohol intake: current Drinks per week: 1 Alcohol use details: consumes 2 hard liquor drinks a month Substance use: never Substance use type: does not use Lack of Transportation: No Lack of Food: Never True Current Housing: I Have Housing Concerned About Future Housing: No Difficulty Paying Gas/Electric Bills: No Difficulty Paying for Meds: No Currently Unemployed: No Education: Master's Degree or Higher Difficulty w/ Childcare or Family Care: No Living arrangements: with family Additional living arrangements comments: Occupation/Education: retired Gender identity (if verbalized by the patient): Female Sexual Orientation (if Verbalized by the Patient): Straight or Heterosexual Spiritual care concerns: No Agree to blood products: Yes Medications Home Medications ?Medication ?Instructions ?Recorded ?Confirmed ?Type furosemide 20 mg tablet 20 mg PO QAM 12/09/21 10/06/24 History sacubitril 24 mg-valsartan 26 mg 1 tablet PO BID 12/09/21 10/06/24 History tablet (Entresto) dapagliflozin propanediol 10 mg 10 mg PO DAILY #90 tabs 12/20/21 10/06/24 Rx tablet (Farxiga) albuterol sulfate 90 mcg/actuation 2 puff inhalation Q4-6H PRN 07/19/22 10/06/24 Rx aerosol inhaler (Proventil HFA) Shortness Of Breath Or Wheezing #3 device biotin 1 gummy PO DAILY 08/20/23 10/06/24 History calcium carbonate-vitamin D3 500 1 cap PO DAILY 08/20/23 10/06/24 History mg (1,250 mg)-50 unit capsule metoprolol succinate 100 mg See Rx Instructions .Route 04/07/24 10/06/24 Rx tablet,extended release 24 hr .COMPLEX #90 tabs pantoprazole 20 mg tablet,delayed 20 mg PO QAM #90 tabs 08/20/24 10/06/24 Rx release duloxetine 30 mg capsule,delayed 30 mg PO DAILY #90 caps 09/22/24 10/06/24 Rx release atorvastatin 10 mg tablet 10 mg PO QHS #90 tabs 10/13/24 Rx eszopiclone 2 mg tablet (Lunesta) 2 mg PO ONCE #1 tablet 10/20/24 Rx levothyroxine 75 mcg tablet 75 mcg PO DAILY #90 tabs 10/27/24 Rx apixaban 5 mg tablet (Eliquis) 5 mg PO BID #180 tabs 12/01/24 Rx
[2024-11-12 09:54] VITALS: BMI 26.4
[2024-11-20 10:41] VITALS: BMI 26.4
--- NOTE | 2024-11-20 10:41 | WPDSLEEPSTUD ---
Sleep Study Date of Study: 10/21/24 Ordering Provider: DARIN Hollins Interpreting Physician: Jacqueline Dunham DO Sleep Study Type: Polysomnogram Height: 1.52 m Weight: 61.235 kg Body Mass Index: 26.4 Neck Circumference (inches): 12.25 [place]: 5 Reason for Sleep Study Known obstructive sleep apnea, split night study 12/15/2021 showed AHI 13.1 with desaturation to 69% and an optimal pressure of CPAP 12 with 2 of EPR Sleep History Lena West is a 79-year-old female with obstructive sleep apnea with a prior split night study in Dec 2021 showing mild ARNULFO, optimal pressure CPAP 12 + 2 EPR. She has persistent paroxysmal atrial fibrillation status post failed cardioversion, atrial flutter, diastolic congestive heart failure, anxiety, asthma, hypothyroidism, hypertension, osteopenia, primary hyperparathyroidism, seizures, thyroid nodule and overactive bladder. She rarely awakens from sleep short of breath. She rarely awakens at night with heartburn, belching or cough. He denies snoring. She rarely has trouble sleeping when she has a cold. She rarely wakes up gasping for air throughout the night. She rarely has breathing problems at night observed by herself or others. She denies sweating excessively at night. She rarely has heart palpitations or irregular heartbeats during the night. She denies falling asleep during the day and while driving. She denies cataplexy. She rarely feels unable to move waking up or falling asleep. She occasionally experiences vivid dreamlike scenes upon awakening or falling asleep. She denies feeling afraid of going to sleep. She occasionally has nightmares. She occasionally remembers her dreams. She occasionally has thoughts race through her mind. She denies feeling sad, depressed or anxious. She denies having muscular tension. She denies noticing parts of her body jerk. She denies kicking during the night. She rarely has crawling and aching feelings in her legs and rarely has leg pain during the night. She rarely awakens with morning jaw pain. She is occasionally bothered by pain during the day and occasionally awakened by pain during the night. She occasionally wakes up feeling stiff in the morning. She frequently wakes up with back pain. She occasionally wakes up with pain in the neck, spine or other joints. She goes to bed at 11:00 p.m. every night. It takes her 10-15 minutes to fall asleep. She wakes up 1-2 times throughout the night to urinate and is able to fall back asleep within 10 minutes. She wakes up at 8:00 a.m. every morning. She typically gets 7-8 hours of sleep per night. She will stay in bed for 15 minutes after waking up morning he currently lives with her . She denies consuming any caffeinated beverages within 2 hours of bedtime. She denies engaging in physical exercise before bedtime. She will occasionally read before falling asleep. She denies watching television before falling asleep. She denies taking naps in afternoon or the evening. She consumes 10 oz of caffeinated beverage in the morning. She consumes 2-3 alcoholic beverages per month. She denies tobacco and recreational drug use. [facility] Past Medical History Medical History Acute postoperative pain of right shoulder Colon polyp Cystocele Raynaud's disease without gangrene Chronic mid back pain Anxiety Diastolic dysfunction CHF (congestive heart failure) Scoliosis Arterial occlusive disease Thyroid disease Asthma Atrial fibrillation 12/2014 Osteopenia Hypothyroidism (acquired) CKD (chronic kidney disease) stage 3, GFR 30-59 ml/min GERD without esophagitis Upper back pain Intermittent asthma without complication Chronic atrial fibrillation Dyslipidemia Essential (primary) hypertension Hyperparathyroidism Surgical History Surgical History History of total replacement of right shoulder joint (~11/14/23) History of cardioversion (~05/2018) History of parathyroidectomy (~10/2018) partial 10/2018 Hx of tonsillectomy (~1952) 1952 History of tubal ligation (~2004) 2004 Family History Family History Grandparent Family history of malignant neoplasm of breast Social History Social History Social History: Caffeine- coffee Smoking status: Never smoker Second hand tobacco smoke exposure: No Alcohol intake: current Drinks per week: 1 Alcohol use details: consumes 2 hard liquor drinks a month Substance use: never Substance use type: does not use Lack of Transportation: No Lack of Food: Never True Current Housing: I Have Housing Concerned About Future Housing: No Difficulty Paying Gas/Electric Bills: No Difficulty Paying for Meds: No Currently Unemployed: No Education: Master's Degree or Higher Difficulty w/ Childcare or Family Care: No Living arrangements: with family Additional living arrangements comments: Occupation/Education: retired Gender identity (if verbalized by the patient): Female Sexual Orientation (if Verbalized by the Patient): Straight or Heterosexual Spiritual care concerns: No Agree to blood products: Yes Medications Home Medications ?Medication ?Instructions ?Recorded ?Confirmed ?Type furosemide 20 mg tablet 20 mg PO QAM 12/09/21 10/06/24 History sacubitril 24 mg-valsartan 26 mg 1 tablet PO BID 12/09/21 10/06/24 History tablet (Entresto) dapagliflozin propanediol 10 mg 10 mg PO DAILY #90 tabs 12/20/21 10/06/24 Rx tablet (Farxiga) albuterol sulfate 90 mcg/actuation 2 puff inhalation Q4-6H PRN 07/19/22 10/06/24 Rx aerosol inhaler (Proventil HFA) Shortness Of Breath Or Wheezing #3 device biotin 1 gummy PO DAILY 08/20/23 10/06/24 History calcium carbonate-vitamin D3 500 1 cap PO DAILY 08/20/23 10/06/24 History mg (1,250 mg)-50 unit capsule metoprolol succinate 100 mg See Rx Instructions .Route 04/07/24 10/06/24 Rx tablet,extended release 24 hr .COMPLEX #90 tabs apixaban 5 mg tablet (Eliquis) 5 mg PO BID #180 tabs 07/23/24 10/06/24 Rx pantoprazole 20 mg tablet,delayed 20 mg PO QAM #90 tabs 08/20/24 10/06/24 Rx release duloxetine 30 mg capsule,delayed 30 mg PO DAILY #90 caps 09/22/24 10/06/24 Rx release atorvastatin 10 mg tablet 10 mg PO QHS #90 tabs 10/13/24 Rx eszopiclone 2 mg tablet (Lunesta) 2 mg PO ONCE #1 tablet 10/20/24 Rx levothyroxine 75 mcg tablet 75 mcg PO DAILY #90 tabs 10/27/24 Rx Sleep Procedure A full night polysomnogram using the niiu multi-channel system recorded the standard physiologic parameters including EEG, EOG, submentalis EMG, anterior tibialis EMG, EKG, body position, nasal and oral airflow using nasal pressure sensor and thermistor.? Respiratory parameters of chest and abdominal movements were recorded with Respiratory Inductance Plethysmography belts. Oxygen saturation was recorded by pulse oximetry. Video monitoring was also performed. Sleep stages, periodic limb movements, and EEG arousals were scored in 30 second epochs according to the criteria of the AASM Scoring Manual. The Apnea-Hypopnea Index was calculated using [facility] guidelines for definition of hypopnea with 4% O2 desaturations while scoring respiratory events. Sleep Architecture The total recording time was 180.2 minutes.? The total sleep time was 105.0 minutes. Sleep latency was 40.8 minutes. REM sleep was not achieved during this study. Sleep efficiency was 58.3%. The patient had 7 awakenings for an awakening index of 4.0. Wake after sleep onset time was 34.5 minutes. The patient spent 4.5 minutes, 4.3% of total sleep time in Stage N1. The patient spent 100.0 minutes, 95.2% in Stage N2. The patient spent 0.5 minutes, 0.5% in Stage N3. The patient spent 0.0 minutes, 0.0% in Stage REM sleep. Pal Velazquez respirations were present towards the end of the study with the patient in the supine position. The cycle length of 65.9 seconds and circulation time of 52.3 seconds. Respiratory Analysis The patient had 30 hypopneas and 4 central apneas for an overall Apnea Hypopnea Index of 19.4. The REM Apnea Hypopnea Index was 0. The NREM Apnea Hypopnea Index was 19.4. The patient had a Central Apnea Hypopnea Index of 2.3. There was no evidence of Pal-Velazquez Respirations. Arousals There were 76 total arousals for an arousal index of 43.4. There were 19 spontaneous arousals for an index of 10.9. There were 21 arousals due to respiratory events for an index of 12.0. There were 33 arousals due to periodic limb movements for an index of 18.9.? There were 5 arousals due to isolated limb movements for an index of 2.9. Periodic Limb Movements The patient had 9 isolated limb movements with an index of 5.1. The patient had 54 periodic limb movements with an index of 30.9, which is elevated (normal <15). Patient had a total of 63 limb movements with a total limb movement index of 36.0. Oximetry Data The patient had an average oxygen saturation of 94.4% in sleep with a minimum oxygen saturation of 87.0% and a maximum oxygen saturation of 98.0%. The patient had 35 oxygen desaturations that were 4% or greater resulting in an Oxygen Desaturation Index of 20.0.? The patient spent 0.7 minutes, 0.4% of total sleep time with an oxygen saturation below 88%. Snoring Profile Mild to moderate snoring was present throughout the study. Cardiac Profile The EKG showed atrial fibrillation. The patient had an average pulse rate of 59.9 bpm with a minimum pulse of rate of 48.0 bpm and a maximum pulse rate of 76.0 bpm.? EEG Profile No signs of seizure activity seen. Assessment and Plan Assessment and Plan (1) ARNULFO (obstructive sleep apnea): Code(s): G47.33 - Obstructive sleep apnea (adult) (pediatric) Status: Acute Assessment and Plan: The patient had an overall AHI of 19.4 with desaturation down to 87%. This is consistent with moderate sleep apnea. The patient is not a candidate for AutoPAP due to the Pal Velazquez respirations. I recommend that the patient have a CPAP titration study with the use of a hypnotic to ensure we obtain enough sleep data and find an optimal pressure setting. The patient had a significant number of limb movements during the study with the majority being periodic in nature. Approximately 60% of the periodic limb movements caused arousals in the patient's sleep. The patient's sleep history does not suggest Restless Leg Syndrome. I recommend that the patient have a serum ferritin drawn for evaluation of iron deficiency anemia. If the patient has a serum ferritin less than 75 ng/mL, I recommend starting a daily iron supplement and a Vitamin C supplement for better absorption. If the serum ferritin is greater than 75 ng/mL, I recommend starting a dopamine agonist and titrating the dose until symptoms resolve. There are nonpharmacological methods to treat limb movements including daily exercise, stretching calf muscles before bed, avoiding excessive amounts of caffeine and alcohol, vitamin B supplementation, magnesium lotion massaged into legs before bed, and use of a weighted blanket. (2) Pal-Velazquez respiration: Code(s): R06.3 - Periodic breathing Status: Acute Assessment and Plan: Pal Velazquez respirations were present towards the end of the study with the patient in the supine position. The cycle length of 65.9 seconds and circulation time of 52.3 seconds. I recommend that the patient have an echocardiogram if not done within the past 6 months to rule out cardiogenic causes of Pal Velazquez respirations. Data The data obtained during this sleep study is adequate for interpretation. Certification This sleep study has been reviewed by a board certified sleep medicine physician.
== END 2024-10-22 06:50 | disposition home or self-care (01) ==
PROVIDERS: PCP Family Medicine; Visit Provider Physician Assistant
DX: G47.33 Obstructive sleep apnea (adult) (pediatric) (principal)
CPT/HCPCS: 95810

== ENCOUNTER 2024-11-07 10:46 | Outpatient (CLI) | payer MEDICARE, SELFPAY ==
--- NOTE | ~2024-11-07 | XR_ITS ---
EXAMINATION: XR scoliosis survey DATE: 11/07/2024 11:23 INDICATION: Dorsalgia TECHNIQUE: AP and lateral views of the spine were obtained on 3 overlapping images of the cervical, thoracic and lumbar spine. COMPARISON: None. FINDINGS: Mild reversal of the normal cervical lordosis. In addition there is 2 mm anterolisthesis C2 on C3 and 2 mm retrolisthesis C4 on C5 and C5 on C6. 50 degree thoracolumbar dextroscoliosis measured between T10 and L1 and 45 degree levoscoliosis measured between L1 and L5. Normal sagittal alignment of the t horacic and lumbar spine. Vertebral body heights are normal throughout. Severe spondylosis throughout the spine with severe disc height loss with degenerative endplate changes at C3-C4 through C6-C7, severe disc height loss additional degenerative endplate remodeling on the left at T10-T11, diffusely at T12-L1 and on the right at L1-L2 and L2-L3. Mild to moderate disc height loss at the remaining levels in the spine. Visualized portion of the lungs are clear with no evident pleural effusion or pneumothorax. Heart size is normal. Tortuous and atherosclerotic thoracic aorta. Large amount of colonic stool in the abdomen and pelvis. IMPRESSION: 1. 50 degrees thoracolumbar dextro scoliosis and 45 degrees lumbar levoscoliosis. 2. Severe cervical, lumbar and lower thoracic spondylosis. Reviewed, dictated and finalized at location A. IMPRESSION: 1. 50 degrees thoracolumbar dextro scoliosis and 45 degrees lumbar levoscoliosi s. 2. Severe cervical, lumbar and lower thoracic spondylosis.
== END 2024-11-07 10:47 | disposition home or self-care (01) ==
LOC: MICIMG 10:47
PROVIDERS: PCP Family Medicine; Visit Provider Nurse Practitioner Family
DX: M54.9 Dorsalgia, unspecified (principal)
CPT/HCPCS: 72082

== ENCOUNTER 2024-12-01 09:49 | Outpatient (CLI) | payer MEDICARE, SELFPAY ==
--- OUTSIDE RECORDS SUMMARY | 2000-10-01 10:00 | XMS_ITS | Continuity of Care Document ---
Author Organization [facility] Address [address] [place] [address] [address] [place] [address] Phone Care Team Providers Care Motion Picture Commentator Name Role Phone Saba Garcia Unavailable Unavailable Advance Directives Directive Yes / No Effective Date File Name No Information Encounters Encounter Description Practice Location Reason(s) For Visit Diagnoses Date Provider Providers Copied on Encounter [facility], [address], [place], [place], [id number], [place] tel:[phone] [facility] No Information [address] Radha Walter. [address] , [address], [place], [address], [place]. tel:[phone] Family History Family Member Type Diagnosis Age At Onset No Information Payers Payer name Insurance type Covered democrat ID Authoriza tion(s) No Information Social History Type Description Quantity Date Captured Comments Sex Female Smoking Status No Information Chief Complaint And Reason For Visit No Information Reason For Referral Reason For Referral No Information History Of Present Illness Encounter Date Complaint History Of Prese nt Illness No Information Functional Status Date Functional Assessmen t No Information Instructions Date Instruction Additional Infor mation No Information Assessments Type Assessment Date No Information Patient Care Teams Name Effective Dates (start - stop) Status Members No Information
--- OUTSIDE RECORDS SUMMARY | 2024-12-01 10:26 | XMS_ITS | Patient Health Record ---
Author Organization [facility] Address [address] [place] [address] Care Team Providers Care Well Cleaner Name Role Phone Danie Moreno MD Primary Care Provider Unavailable Eun Guardado Unavailable [phone] Reason For Referral No Information Medications Medication [...] Insured Coverage Start Date Coverage End Date [facility] Medicare Replacement/ Advantage - Ppo [address] [address] [place] [address] [id number] MIRTA NAVAS Self - patient is the insured Medical (General) History Surgical History Surgery Date(Month/Year) Any surgical history Tonsilectomy/adenoids 03/05/1952
--- OUTSIDE RECORDS SUMMARY | 2024-12-01 10:27 | XMS_ITS | Clinical Summary ---
Author Organization [facility] Address [address] [place] [address] Phone Care Team Providers Care Junior Sales Assistant Name Role Phone Danie Moreno MD [...] IN THE MORNING 0 Active vit B1 [id number] mg Tablet Take by mouth. Activ e [...] Comments Blood Pressure 118/76 02/18/2021 8:46 AM INSPECTOR AND UNLOADER Pulse - - Temperature - - Respiratory Rate - - Oxygen Saturation - - Inhaled Oxygen Concentration - - Weight 68.4 kg (150 lb 12.8 oz) 02/18/2021 8:46 AM INSPECTOR AND UNLOADER Height 150.9 cm (4' 11.4) 02/18/2021 8:46 AM CS T Body Mass Index 30.05 02/18/2021 8:46 AM INSPECTOR AND UNLOADER Plan of Treatment Health Maintenance Due Date [...] IMMUNO, QUAL, STOOL Routine 02/05/2019 12:07 PM INSPECTOR AND UNLOADER Encounter for screening for malignant neoplasm of rectum from Last 3 Months or Most Recently Relevant to Health Maintenance Results * POC OCCULT BLOOD, IMMUNO, QUAL, STOOL (02/05/2019 12:07 PM INSPECTOR AND UNLOADER) OCCULT BLOOD, IMMUNOASSAY POC Negative Negative [facility] [employer] [address] INTERNAL KIT QC Pass Pass [facility] [employer] [address] KIT LOT NUMBER POC [id number] [facility] [employer] [address] KIT EXPIRATION DATE POC [id number] [facility] [employer] [address] Stool STOOL SPECIMEN / Unknown 02/05/2019 12:07 PM INSPECTOR AND UNLOADER Caprice Carr MD POINT OF CARE TESTING Evy hernandez Result [facility] [employer] [address] CLIA# [id number] [address] [facility] [address] [place] [address] from Last 3 Months or Most Recently Relevant to Health Maintenance Insurance [facility] [id number] Care Teams Junior Sales Assistant Relationship Specialty Start Date End Date Danie Moreno MD [address] [place] [address] PCP - General Family Practice 02/03/19
--- OUTSIDE RECORDS SUMMARY | 2024-12-01 10:27 | XMS_ITS | Clinical Summary ---
Author Organization [facility] Address [address], [address] [address] Phone Care Team Providers Care Barrel Lapper Name Role Phone Danie Moreno MD Primary [...] 1945 Zoster Immunization (1 of 2) 05/23/1995 Medicare Initial AWV [id number] 05/04/2011 Pneumococcal Immunization (50+ years) (2 of 2 - PCV20 or PCV21) 12/05/2016 12/06/2015 Respiratory Syncytial Virus (RSV) Immunization (Adult) (1 - 1-dose 75+ series) 2020 Influenza Immunization (#1) 2024 11/0 07/2020, 12/16/2019, 01/17/2018, Additional history exists SARS-COV-2 Immunization (2024- season) 2024 07/06/2021, 12/08/2020, 05/04/2020, Additional history exists Pneumococcal [...] Recently Relevant to Health Maintenance Results * HM COLONOSCOPY (12/27/2017) Chester Salgado DO PROCEDURE/MINOR SURGICAL ORDERA BLES Final Result from Last 3 Months or Most Recently Relevant to Health Maintenance Insurance MEDICARE [facility] Care Teams Barrel Lapper Relationship Specialty Start Date End Date Danie Moreno MD PCP - General Family Medicine 12/31/17
--- OUTSIDE RECORDS SUMMARY | 2024-12-01 10:27 | XMS_ITS | Encounter Summary ---
Author Organization [facility] Address [address] [place] [address] Care Team Providers Care Best Second Jobs Name Role Phone Danie Moreno MD Primary Care Provider Sera Arana MD Unavailable Encounter Details Date Type Department Care Team (Late st Contact Info) Description 12/28/2021 Orders Only [facility] Information Management [address] [place] [id number] Scanning, Provider Social History Tobacco Use Types Packs/Day Years Used Date Smoking Tobacco: Never Smokeless Tobacco: Never Alcohol Use Standard Drinks/Week Comments Yes 0 (1 standard drink = 0.6 oz pur e alcohol) socially Comments No Sex and Gender Information Value Date Recorded Sex Assigned at Not on file Legal Sex Female 3:48 AM [employer] Gender Identity Female 11/29/2023 4:26 PM CDT Sexual Orientation Not on file documented as of this encounter Plan of Treatment Not on file documented as of this encounter Procedures Procedure Name Priority Date/Time Associated Diagnosis Comments SLEEP LAB/STUDY - RESULT 12/28/2021 9:28 PM CDT documented in this encounter Results * SLEEP LAB/STUDY - RESULT (12/28/2021 9:28 PM CDT) us Provider Scanning Final Result documented in this encounter Visit Diagnoses Not on filedocumented in this encounter Care Teams Best Second Jobs Relationship Specialty Start Date End Date Danie Moreno MD PCP - General Family Practice 12/06/16 Sera Arana MD [address] [place] [address] [address] [place], [place] [address] [address] Consulting Physician Sleep Medicine 05/04/22 documented as of this encounter
--- OUTSIDE RECORDS SUMMARY | 2024-12-01 10:27 | XMS_ITS | Clinical Summary ---
Author Organization [facility] Address [address] [place] [address] Care Team Providers Care Clip Coater Name Role Phone Danie Moreno MD Primary Care Provider Source Comments [facility],non-owned Affiliates and Associated Physician Practices is amultiple site organization consisting of ambulatory clinics and hospital sitesin [place], [place], [place] and [place]. This disclosure is being madepursuant to the Care Everywhere program and may not contain all information available regarding this patient. Last updated 17.[facility] Allergies No known active allergies Immunizations Immunization Administration Dates Next Due INFLUENZA VACCINE, HIGH-DOSE , QUADR. (FLUZONE HIGH-DOSE QUADRIVALENT; 65Y+), 0.7 ML (HD-IIV4) 12/16/2019 Social History Tobacco Use Types Packs/Day Years Used Date Smoking Tobacco: Never Assessed Comments Unknown Sex and Gender Information Value Date Recorded Sex Assigned at Not on file Legal Sex Female 6:33 PM [employer] Gender Identity Not on file Sexual Orientation Not on file Plan of Treatment Health Maintenance Due Date Last Done Comments DTAP/TDAP/TD VACCINES (1 - Tdap) 1964 PNEUMOCOCCAL VACCINE 50+ (1 of 1 - PCV) 05/23/1995 ZOSTER VACCINE (1 of 2) 05/23/1995 Respiratory Syncytial Virus (RSV) Vaccine Pt: or over 60 yrs (1 - 1-dose 75+ series) 2020 DEPRESSION SCREENING 03/05/2024 MEDICARE AWV CALENDAR YEAR 2024 COVID-19 VACCINE ( - 2023-2 5 season) 2024 INFLUENZA VACCINE (#1) 2024 12/16/2019 BONE [...] complete this topic Insurance MEDICARE [facility] MEDICARE [facility] MEDICARE [facility] MANAGED MEDICARE ADV * Guarantor: SUMAN NAVAS Account Type Relation to Patient Date of Phone Billing Address Personal/Family Formerly [facility] [place] [address] SELF PAY NO INSURANCE Member Subscriber Plan / Payer (Ef fective for All Dates) Name:Suman Navas Member ID:Not on file Relation to Subscriber:Not on file Name:SUMAN NAVAS Subscriber ID:Not on file [facility] [place] [address] Payer ID:Not on file Group ID:Not on file Type:Self Pay Address: [facility] MANAGED MEDICARE ADV * Guarantor: SUMAN NAVAS Account Type Relation to Patient Date of Phone Billing Address Personal/Family [address] [place], [place] [address] [address] SELF PAY NO INSURANCE Member Subscriber Plan / Payer (Ef fective for All Dates) Name:Suman Navas Member ID:Not on file Relation to Subscriber:Not on file Name:SUMAN NAVAS Subscriber ID:Not on file Address: [address] [place], [place] [address] [id number] Payer ID:Not on file Group ID:Not on file Type:Self Pay Address: [facility] MANAGED MEDICARE ADV * Guarantor: SUMAN NAVAS Account Type Relation to Patient Date of Phone Billing Address Personal/Family [facility] [place] [place] [address] SELF PAY NO INSURANCE Member Subscriber Plan / Payer (Ef fective for All Dates) Name:Suman Navas Member ID:Not on file Relation to Subscriber:Not on file Name:SUMAN NAVAS Subscriber ID:Not on file Address: [address] [place], [place] [address] [address] Payer ID:Not on file Group ID:Not on file Type:Self Pay Address: [facility] MANAGED MEDICARE ADV Care Teams Clip Coater Relationship Specialty Start Date End Date Danie Moreno MD [address] [place] [address] PCP - General 04/01/18
--- OUTSIDE RECORDS SUMMARY | 2024-12-01 10:27 | XMS_ITS | Clinical Summary ---
Author Organization [facility] [address] Address [address] [place] [address] Care Team Providers Care Laminator Hand Name Role Phone Danie [place]no MD Primary Care Provider Sera Arana MD Unavailable Allergies No known active allergies Medications atorvastatin (LIPITOR) 10 mg tablet Take 1 tablet (10 mg total) by mouth daily. 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 before breakfast 9 Active albuterol HFA (PROVENTIL [...] tabletIndication s:Chronic diastolic CHF (congestive heart failure) ([facility]) TAKE 1 TABLET BY MOUTH DAILY 90 tablet 2 5 Active sacubitriL-valsa rtan (Entresto) 24-26 mg tabletIndication s:Chronic diastolic CHF (congestive heart failure) ([facility]) TAKE 1 TABLET BY MOUTH TWICE DAILY 180 tablet 2 5 Active furosemide (LASIX) 20 mg tabletIndication s:Chronic diastolic CHF (congestive heart failure) ([facility]) TAKE 1 TABLET BY MOUTH DAILY 90 tablet 3 5 Active Active Problems Problem Noted Date Diagnosed Date Scoliosis 11/24/2024 S/P reverse total shoulder arthroplasty, right 0 11/14/2023 Tear of right rotator cuff 11/01/2023 Chronic heart failure with preserved ejection fr action 11/14/2021 Pulmonary hypertension 11/14/2021 Hyperparathyroidism (CMS/HCC) 07/26/2018 Overview (07/26/2018): Added automatically from request for surgery [id number] Pulsatile tinnitus 06/16/2017 Hypercholesteremia 06/16/2017 BECKER (dyspnea [...] flutter Assessment & Plan (01/19/2017 1:27 PM PROSPECT MANAGER): We discussed options for management today. She [...] Encounters Date Type Department Care Team Description 11/28/2024 Orders Only [facility] Medicine Neurosurgery [address] [place] [id number] Vincent Moore PA Scoliosis, unspecified scoliosis type, unspecified spinal region (Primary Dx) 11/24/2024 Telephone [facility] Neurosurgery [address] 6[address] [place] [address] [place] [address] Susanna Aparicio from Last 3 Months Surgical History Surgery [...] Father Yo White Heart disease Father Yo Granadosy Hypertension Father Yo White Other Father Yo White Breast cancer Maternal Grandmother Depression Mother Ashley White Mental illness Mother Ashley Antoneney Suicidality Mother Ashley White Suicide; Cau se [...] on file Legal Sex Female 3:48 AM PROSPECT MANAGER Gender Identity Female 11/29/2023 4:26 PM CDT [...] Discontinued 019 Medical Devices Implanted Type Area Personal Coach Device Identifier Shelf Expiration Date Model / Serial / Lot [employer] Tornier Aequalis Perform 33mm Lateralize Reverse Shoulder +3mm [id number] - [id number] - [id number] Implanted:Qty: 1 on 11/14/2023 by Gareth Mora MD at [facility] Right: Shoulder [employer] 02/24/2028 [id number] / [id number] / [employer] Tornier Aequalis Perform 25mm Reverse Shoulder Standard Baseplate [id number] - [id number] - [id number] Implanted:Qty: 1 on 11/14/2023 by Gareth Mora MD at [facility] Right: Shoulder [employer] 03/03/2028 [id number] / [id number] / [employer] Aequalis Perform 7mm Reverse Screw Bone Sterile Latex Free [id number] - [id number] - [id number] Implanted:Qty: 1 on 11/14/2023 by Gareth Mora MD at [facility] Right: Shoulder [employer] 01/09/2028 [id number] / [id number] / [employer] Screw Glenoid Locking Reverse Aequalis Perform 5.0x26mm Titanium [id number] - [id number] Implanted:Qty: 2 on 11/14/2023 by Gareth Mora MD at [facility] Right: Shoulder [employer] [id number] / / [employer] Stem Humeral Shoulder Reverse Aequalis Perform [id number] - [id number] - [id number] Implanted:Qty: 1 on 11/14/2023 by Gareth Mora MD at [facility] Right: Shoulder [employer] 07/04/2028 [id number] / [id number] / [employer] Insert Perform 10 Deg [id number] - [id number] - [id number] Implanted:Qty: 1 on 11/14/2023 by Gareth Mora MD at [facility] Right: Shoulder [employer] 11/17/2026 [id number] / [id number] / [employer] Restrictor Bone Cement Elbow Polyethylene Aqualis 8-15mm [id number] - [id number] - [id number] Implanted:Qty: 1 on 11/14/2023 by Gareth Mora MD at [facility] Right: Shoulder [employer] Inc [id number] 06/29/2028 [id number] / [id number] / [employer] Simplex P Radiopaque Full Dose Cement Bone Sterile [id number] - [id number] Implanted:Qty: 1 on 11/14/2023 by Gareth Mora MD at [facility] Right: Shoulder [employer] 07/02/2025 [id number] / / [id number] Procedures Procedure Name Priority Date/Time Associated Diagnosis [...] Bone mineral density was performed on a snapp.me Discovery Densitometer. Machine Cross-calibration and Precision studies [...] by the International Society of Clinical Densitometry. [id number] Khari Keating MD IM DXA PROCEDURES Evy l Result from Last 3 Months or Most Recently Relevant to Health Maintenance Insurance [employer] [facility] MEDICARE ADVANTAGE [facility] MEDICARE ADVANTAGE [facility] MEDICARE ADVANTAGE Advance Directives For more information, please contact: [phone] Documents on File Type Date Recorded Patient Bareback Rider Expl anation ADVANCE DIRECTIVE 11/14/2023 5:55 AM Gage thornton Will * Full Code (Latest Code Status on File) Date Activated Date Inactivated Comments 11/14/2023 1:16 PM 11/15/2023 1:43 PM * Full Code Date Activated Date Inactivated Comments 10/18/2018 1:28 PM 10/19/2018 6:08 PM * Full Code Date Activated Date Inactivated Comments 05/14/2018 9:46 AM 05/15/2018 4:42 AM Care Teams Laminator Hand Relationship Specialty Start Date End Date Danie Moreno MD PCP - General Family Practice 12/06/16 Sera Arana MD [address] [place] [address] [place] [address] Consulting Physician Sleep Medicine 05/04/22
[2024-12-01 11:41] LABS: Ferritin 50.10 ng/mL (11.1-264)
== END 2024-12-01 09:50 | disposition home or self-care (01) ==
PROVIDERS: PCP Family Medicine; Visit Provider Physician Assistant
DX: D64.9 Anemia, unspecified (principal)
CPT/HCPCS: 36415; 82728

== ENCOUNTER 2025-02-19 10:26 | Outpatient (CLI) | payer MEDICARE, SELFPAY ==
--- NOTE | 2025-02-19 10:36 | ECHO_ITS ---
Patient Info Name: Lena West Age: 79 years : 1945 Gender: Female Ht: 60 in Wt: 136 lbs BSA: 1.63 m2 HR: 71 bpm BP: 110 / 70 mmHg Heart Rhythm: Atrial Flutter Technical Quality: Good Exam Date: 02/19/2025 10:41 AM Patient Status: O Admit Date: 02/19/2025 Exam Type: CA echo doppler color flow Complete two-dimensional, color flow and Doppler transthoracic echocardiogram is performed. Electric Truck Driver: Sharee Jung Attending Provider: Denita COLEMAN Summary 1. Complete two-dimensional, color flow and Doppler transthoracic echocardiogram is performed. 2. Left ventricular chamber dimension is normal. 3. Left ventricular systolic function is normal, estimated at 65-70. 4. The left ventricular diastolic function is abnormal. 5. E/e' 10 is mildly elevated. 6. Left atrial chamber dimension is severely enlarged. 7. There is moderate aortic valve sclerosis. 8. There is mild aortic valve stenosis with a peak velocity of 136 cm/s, mean gradient of 2 mmHg, and aortic valve area of 1.5 cm2. 9. There is mild aortic valve regurgitation. 10. There is mild mitral valve regurgitation. 11. There is mild tricuspid valve regurgitation. 12. No pulmonary hypertension, estimated pulmonary arterial systolic pressure is 31 mmHg. Left Ventricle E/e' 10 is mildly elevated. Left ventricular chamber dimension is normal. Left ventricular systolic function is normal, estimated at 65-70. The left ventricular diastolic function is abnormal. Right Ventricle Right ventricular chamber dimension is normal. Right ventricular systolic function is normal. Left Atria Left atrial chamber dimension is severely enlarged. Right Atria Right atrial chamber dimension is normal. Aortic Valve The aortic valve is trileaflet. There is moderate aortic valve sclerosis. There is mild aortic valve stenosis with a peak velocity of 136 cm/s, mean gradient of 2 mmHg, and aortic valve area of 1.5 cm2. There is mild aortic valve regurgitation. Pulmonic Valve There is no pulmonic regurgitation. Mitral Valve There is no mitral valve stenosis. There is mild mitral valve regurgitation. Tricuspid Valve There is mild tricuspid valve regurgitation. No pulmonary hypertension, estimated pulmonary arterial systolic pressure is 31 mmHg. Pericardium/Pleural There is no pericardial effusion. Inferior Vena Cava Normal inferior vena cava with >50% collapse upon inspiration consistent with normal right atrial pressure, 5 mmHg. Aorta The aortic root size at the sinus of Valsalva is normal. Left Ventricular Outflow Tract Name Value Normal LVOT 2D LVOT Diameter 1.9 cm LVOT Doppler LVOT Peak Velocity 77 cm/s LVOT Peak Gradient 2 mmHg LVOT Mean Gradient 1 mmHg LVOT VTI 14 cm LVOT VTI/AV VTI Ratio 0.5 LVOT Stroke Volume 38 ml LVOT CO 3.3 l/min LVOT CI 2.0 l/min/m2 Pulmonic Valve Name Value Normal RVOT Doppler RVOT Peak Velocity 81 cm/s RVOT Peak Gradient 3 mmHg PV Doppler PV Peak Velocity 92 cm/s PV Peak Gradient 3 mmHg Mitral Valve Name Value Normal MV Diastolic Function MV E Peak Velocity 85 cm/s MV A Peak Velocity 1 cm/s MV E/A 119.0 MV Decel Time (PW) 155 ms Tricuspid Valve Name Value Normal TV Regurgitation Doppler TR Peak Velocity 257 cm/s TR Peak Gradient 26 mmHg Estimated PAP/RSVP RA Pressure 5 mmHg <=5 PA Systolic Pressure 31 mmHg <36 RV Systolic Pressure 31 mmHg <36 Aorta Name Value Normal Ascending Aorta Ao Root Diameter (MM) 2.3 cm Ao Root Diam Index (MM) 1.4 cm/m2 Aortic Valve Name Value Normal AV Doppler AV Peak Velocity 136 cm/s AV Peak Gradient 3 mmHg AV Mean Gradient 2 mmHg AV VTI 26 cm AV Area (Cont Eq VTI) 1.5 cm2 >=3.0 AV Area (Cont Eq Reji) 1.6 cm2 AV DI (Reji) 0.57 AV Regurgitation 2D LVOT Area 2.8 cm2 Ventricles Name Value Normal LV Dimensions 2D/MM IVS Diastolic Thickness (2D) 0.6 cm 0.6-1.0 IVS Diastole Thickness (MM) 0.9 cm 0.6-0.9 LVID Diastole (2D) 3.5 cm 3.8-5.2 LVID Diastole (MM) 4.7 cm 3.8-5.2 LVIW Diastolic Thickness (2D) 0.8 cm 0.6-0.9 LVIW Diastolic Thickness (MM) 0.9 cm 0.6-0.9 LVID Systole (2D) 2.0 cm 2.2-3.5 LVID Systole (MM) 2.5 cm 2.2-3.5 LVOT Diameter 1.9 cm LV Mass (2D Cubed) 62.53 g 67.00-162.00 LV Mass Index (2D Cubed) 38 g/m2 43-95 Relative Wall Thickness (2D) 0.47 <=0.42 LV Mass (MM Cubed) 142.49 g 67.00-162.00 LV Mass Index (MM Cubed) 87 g/m2 43-95 Relative Wall Thickness (MM) 0.38 LV Fractional Shortening/Ejection Fraction 2D/MM LV Fractional Shortening (2D) 43 % 27-45 LV Fractional Shortening (MM) 47 % 27-45 LV EF (MM Teichholz) 78 % LV EF (2D Teichholz) 75 % LV Diastolic Volume (4C MOD) 39 ml LV EF (4C MOD) 71 % LV Diastolic Volume (2C MOD) 33 ml LV EF (2C MOD) 59 % LV Diastolic Volume (BP MOD) 36 ml 46-106 LV Diastolic Volume Index (BP MOD) 22 ml/m2 29-61 LV Systolic Volume (BP MOD) 13 ml 14-42 LV Systolic Volume Index (BP MOD) 8 ml/m2 8-24 LV EF (BP MOD) 65 % 54-74 LV Diastolic Length (4C) 6.2 cm LV Systolic Length (4C) 5.0 cm LV Stroke Volume (4C MOD) 28 ml Atria Name Value Normal LA Dimensions LA Dimension (MM) 3.7 cm 2.7-3.8 LA Volume (4C A-L) 78 ml LA Volume (BP A-L) 90 ml RA Dimensions RA Systolic Major Paul Length (4C) 6.3 cm 2.2-2.8 RA Area (4C) 14.6 cm2 <=18.0 Report Signatures
--- OUTSIDE RECORDS SUMMARY | 2025-02-19 11:07 | XMS_ITS | Clinical Summary ---
Author Organization [facility] Address [address], [address] [address] Phone Care Team Providers Care Safety Scientist Name Role Phone Danie Moreno MD Primary [...] complete this topic Human Papillomavirus (HPV) Immunization (No Doses Required) Completed Immunochemical Fecal Occult Blood Discontinued Meningococcal Immunization [...] Relevant to Health Maintenance Insurance MEDICARE [facility] Care Teams Safety Scientist Relationship Specialty Start Date End Date Danie Moreno MD PCP - General Family Medicine 12/31/17
--- OUTSIDE RECORDS SUMMARY | 2025-02-19 11:07 | XMS_ITS | Patient Health Record ---
Author Organization [facility] [employer] [facility] Address [address] [place] [address] Care Team Providers Care Grease Packer Name Role Phone Danie Moreno MD Primary Care Provider Unavailable Eun Guardado Unavailable [phone] Reason For Referral No Information Medications Medication [...] Insured Coverage Start Date Coverage End Date [facility] Medicare Replacement/ Advantage - Ppo [address] [address] [place] [address] [id number] MIRTA NAVAS Self - patient is the insured Medical (General) History Surgical History Surgery Date(Month/Year) Any surgical history Tonsilectomy/adenoids 03/05/1952
--- OUTSIDE RECORDS SUMMARY | 2025-02-19 11:07 | XMS_ITS | Clinical Summary ---
Author Organization [facility] Address [address] [place] [address] Phone Care Team Providers Care School Psychology Professor Name Role Phone Danie Moreno MD [...] IN THE MORNING 0 Active vit B1 [id number] 46-28-24-5-250 mg Tablet Take by mouth. Activ e [...] Comments Blood Pressure 118/76 02/18/2021 8:46 AM EGG SEPARATOR Pulse - - Temperature - - Respiratory Rate - - Oxygen Saturation - - Inhaled Oxygen Concentration - - Weight 68.4 kg (150 lb 12.8 oz) 02/18/2021 8:46 AM EGG SEPARATOR Height 150.9 cm (4' 11.4) 02/18/2021 8:46 AM CS T Body Mass Index 30.05 02/18/2021 8:46 AM EGG SEPARATOR Plan of Treatment Health Maintenance Due Date [...] IMMUNO, QUAL, STOOL Routine 02/05/2019 12:07 PM EGG SEPARATOR Encounter for screening for malignant neoplasm of rectum from Last 3 Months or Most Recently Relevant to Health Maintenance Results * POC OCCULT BLOOD, IMMUNO, QUAL, STOOL (02/05/2019 12:07 PM EGG SEPARATOR) OCCULT BLOOD, IMMUNOASSAY POC Negative Negative [facility] [address] [address] INTERNAL KIT QC Pass Pass [facility] [employer] [address] KIT [address] NUMBER POC [id number] [facility] [address] [address] KIT EXPIRATION DATE POC [id number] [facility] [address] [address] Stool STOOL SPECIMEN / Unknown 02/05/2019 12:07 PM EGG SEPARATOR Caprice Carr MD POINT OF CARE TESTING Evy hernandez Result [facility] [address] [address] [address] CLIA# [id number] [address] [address] [place] [address] from Last 3 Months or Most Recently Relevant to Health Maintenance Insurance [facility] [id number] Care Teams School Psychology Professor Relationship Specialty Start Date End Date Danie Moreno MD [address] [place] [id number] PCP - General Family Practice 02/03/19
== END 2025-02-19 10:27 | disposition home or self-care (01) ==
LOC: ANHLAB 10:27 → ANHCARD 10:29
PROVIDERS: PCP Family Medicine; Visit Provider Physician Assistant
DX: R06.3 Periodic breathing (principal); I34.0 Nonrheumatic mitral (valve) insufficiency; I35.1 Nonrheumatic aortic (valve) insufficiency; I36.1 Nonrheumatic tricuspid (valve) insufficiency
CPT/HCPCS: 93306

== ENCOUNTER 2025-02-27 10:54 | Outpatient (CLI) | payer MEDICARE, SELFPAY ==
--- NOTE | ~2025-02-27 | DEXA_ITS ---
Bone Density Report Name: SUMAN NAVAS Age: 79 Sex: Female Ethnicity: White Date of : 1945 Indication: osteopenia; height loss; prior fracture; Referring Provider: CHRISTINE GONZALES Study: Bone densitometry was performed. Exam Date: February 27, 2025 Accession number: [id number] Bone Density: Region BMD T-score Z-score Classification AP Spine(L3, L4) 0.886 -2.0 0.9 Osteopenia Femoral Neck (Left) 0.638 -1.9 0.4 Osteopenia Total Hip (Left) 0.772 -1.4 0.7 Osteopenia Femoral Neck (Right) 0.644 -1.8 0.4 Osteopenia Total Hip (Right) 0.724 -1.8 0.3 Osteopenia Total Hip Mean 0.748 -1.6 0.5 Osteopenia World Health Organization criteria for BMD impression classify patients as: Normal (T-score at or above -1.0), Osteopenia (T-score between -1.0 and -2.5), or Osteoporosis (T-score at or below -2.5). 10-year Fracture Risk(1): Major Osteoporotic Fracture 21% Hip Fracture 5.2% Reported Risk Factors: [place] (), Neck BMD=0.638, BMI=27.4, previous fracture (1) FRAX(R) Version 3.08. Fracture probability calculated for an untreated patient. Fracture probability may be lower if the patient has received treatment. Previous Exams: -- Region Exam Age BMD T-score BMD Change BMD Change Date g/cm2 vs Baseline vs Previous -- Total Hip(Left) 02/27/2025 79 0.772 -1.4 -6.1%* -6.1%* 11/28/2022 77 0.822 -1.0 Total Hip(Right) 02/27/2025 79 0.724 -1.8 -8.5%* -8.5%* 11/28/2022 77 0.791 -1.2 -- *Denotes significance at 95% confidence level, LSC for Total Hip = 0.027 g/cm2 Clinical Information Provided by Patient: Has had a low trauma fracture Has used the following medications: Vitamin D, Calcium Patient maximum height was 64 Menopause Age: 53 No regular weight bearing exercise Onset of menses at age 13 Number of children 2 Impression: The patient has low bone mass, based on the Total Spine T-score. The patient has an estimated ten-year risk of hip fracture of 5.2% and an estimated ten-year risk of major fracture of 21%, based on the WHO FRAX algorithm. The patient has risk factors, including: previous fracture. The BMD for the Total Hip(Left) decreased, changing by -6.1% since the last DXA exam. The BMD for the Total Hip(Right) decreased, changing by -8.5% since the last DXA exam. Discussion: BONE DENSITY IS LOW AT ONE OR MORE SKELETAL SITES. THE PATIENT'S BMD AND CLINICAL RISK FACTORS CONTRIBUTE TO THIS PATIENT'S HIGH RISK OF FRACTURE. This patient's lowest T-score is low at one or more skeletal sites. It meets the World Health Organization's (WHO) criteria for ?low bone mass? (T-score between -1.0 and -2.5). The patient's 10-year risk of hip fracture and 10 year risk of a major osteoporotic fracture as calculated by FRAX exceeds the threshold where pharmacological therapy is recommended by the National Osteoporosis Foundation (NOF). However, all treatment decisions require clinical judgment and consideration of individual patient factors, including patient preferences, comorbidities, previous drug use, risk factors not captured in the FRAX model (e.g., frailty, falls, vitamin D deficiency, increased bone turnover, interval significant decline in bone density) and possible under or overestimation of fracture risk by FRAX. The patient should follow a healthful lifestyle (good nutrition with adequate calcium and vitamin D, and appropriate weight-bearing exercise). Follow-Up: Consider a repeat BMD and Vertebral Fracture Assessment (VFA) exam in 2 years or sooner if medically necessary, to reassess this patient's status. Reported by: RONDA on 02/27/2025 12:13:00 PM. Reviewed, dictated and finalized at location A.
== END 2025-02-27 10:55 | disposition home or self-care (01) ==
LOC: MICIMG 10:56
PROVIDERS: PCP Internal Medicine; Visit Provider Nurse Practitioner Family
DX: E21.3 Hyperparathyroidism, unspecified (principal); M85.88 Other specified disorders of bone density and structure, other site; M85.852 Other specified disorders of bone density and structure, left thigh; M85.851 Other specified disorders of bone density and structure, right thigh
CPT/HCPCS: 77080